=== PATIENT | male | born 1955 | race Caucasian/White ===

== ENCOUNTER → 2016-07-20 | Outpatient (CLI) | payer OTHER ==
[~2016-07-20] MED LIST: ACET-93 PO; ASP81TEC PO; AZIT-21 PO; CATHETER FLUSH 10 ML SYR IV PRN; CYCL10TA9 PO; DIAZ10TA PO; GFN600TCR PO; IBUP-2055 PO; IOHEXOL 350 MG/ML 150 ML (OMNIPAQUE 350) VIAL IV ONE; LEVO500T69 PO; LOVA20TA2 PO; MECL25TA56 PO; NAPR-243 PO; NS 100 ML (IVPB) BAG IV ONE; SULF1TAB38 PO; TRM50T PO
--- OUTSIDE RECORDS SUMMARY | 2016-07-20 08:57 | XMS REPORT | Continuity of Care Document ---
Author Author [facility] Organization [facility] Address Unknown Phone Unavailable Care Team Providers Care Clinical Director Name Role Phone NO, LOCAL PHYSICIAN PCP Unavailable Insurance Providers Payer Name Policy Number Subscriber Name Relationship Self Pay Clarence Espinoza 18 Self / Same As Patient Advance Directives Directive Response Recorded Date/Time Advance Directives No 06/12/14 4:57pm Health Care Power of Auto Dismantler No 06/12/14 4:57pm Organ Donor Yes 06/12/14 4:57pm Resuscitation Status Full Code 06/12/14 4:57pm Problems Medical Problems Problem Onset Date Status Bronchitis Unknown Active Community acquired pneumonia Unknown Active Wheezing Unknown Active Hyponatremia Unknown Active Medications Medication Dose Route Sig Days/Qty Instructions Order Date Discontinued Date Status Diazepam 1 Each PO THREE TIMES A DAY 30 Qty 04/25/10 08/21/11 Discontinued Cyclobenzaprine HCl (Flexeril) 1 Each PO Q8HR PRN 15 Qty FOR MUSCLE SPASMS 08/21/11 06/13/12 Discontinued Naproxen 1 Each PO TID PRN 20 Qty 08/21/11 06/13/12 Discontinued Tramadol HCl 50 Mg PO Q4-6HOURS PRN 20 Qty FOR PAIN 08/21/11 06/13/12 Discontinued Guaifenesin 600 Mg PO TWICE A DAY 06/15/12 06/22/13 Discontinued Meclizine HCl 25 Mg PO EVERY 8HRS PRN 06/15/12 06/22/13 Discontinued Aspirin 81 Mg PO DAILY 06/15/12 06/22/13 Discontinued Lovastatin (Mevacor) 20 Mg PO DAILY 06/15/12 06/22/13 Discontinued Trimethoprim/Sulfamethoxazole 1 Ea PO TWICE A DAY 40 Qty 06/15/12 Discontinued Azithromycin (Zpak) 1 Tab PO DAILY 4 Qty 06/22/13 06/12/14 Discontinued Levofloxacin 1.5 Each PO DAILY 9 Qty effective 06/12/14 Active Social History Social History Problem Response Recorded Date/Time Alcohol Use Denies Use 06/12/2014 4:57pm Recreational Drug Use No 06/12/2014 4:57pm Recent Foreign Travel No 06/22/2013 3:44am Recent Infectious Disease Exposure No 06/22/2013 3:44am Hospitalization with Isolation Denies 06/22/2013 3:44am Sexually Transmitted Disease No 06/12/2014 4:57pm Smoking Status Current Everyday Smoker 06/12/2014 4:57pm Query Response Start Date Stop Date Smoking Status Current Everyday Smoker Hospital Discharge Instructions No hospital discharge instructions. Plan of Care No plan of care. Functional Status No functional status results. Allergies, Adverse Reactions, Alerts Allergen Type Severity Reaction Status Last Updated No Known Drug Allergies Active 03/03/09 Immunizations Name Given Type Date of Influenza Vaccine 06/14/12 Historical Hepatitis A No Historical Hepatitis B No Historical Tetanus Booster (TDap) More than 5yrs Historical Vital Signs Acute Vital Signs Vital Response Date/Time Temperature (Fahrenheit) 99.0 degrees F (97.6 - 99.5) Temperature (Calculated Celsius) 37.54722 degrees C (36.4 - 37.5) Temperature Source Temporal Pulse Rate (adult) 83 bpm (60 - 90) Respiratory Rate 22 bpm (12 - 24) O2 Sat by Pulse Oximetry 94 % (88 - 100) Blood Pressure 130/73 mm Hg Pain Pain Intensity 9 Height (Feet) 6 feet Height (Inches) 1 inches Height (Calculated Centimeters) 185.918380 cm Weight (Pounds) 166 pounds Weight (Calculated Grams) 45752.704 gm Weight (Calculated Kilograms) 75.348145 kilograms Calculated BMI 21.90 Results Laboratory Results Test Name Result Units Flags Reference Collection Date/Time Result Date/ Time Comments White Blood Count 15.9 10^3/uL H 4.3-11.0 06/12/2014 5:05pm 06/12/2014 5: 33pm Red Blood Count 4.70 10^6/uL 4.35-5.85 06/12/2014 5:05pm 06/12/2014 5: 33pm Hemoglobin 14.2 G/DL 13.3-17.7 06/12/2014 5:05pm 06/12/2014 5:33pm Hematocrit 41 % 40-54 06/12/2014 5:05pm 06/12/2014 5:33pm Mean Corpuscular Volume 88 FL 80-99 06/12/2014 5:05pm 06/12/2014 5: 33pm Mean Corpuscular Hemoglobin 30 PG 25-34 06/12/2014 5:05pm 06/12/2014 5: 33pm Mean Corpuscular Hemoglobin Concent 35 G/DL 32-36 06/12/2014 5:05pm 12/2014 5:33pm Red Cell Distribution Width 12.6 % 10.0-14.5 06/12/2014 5:05pm 2014 5:33pm Platelet Count 266 10^3/uL 130-400 06/12/2014 5:05pm 06/12/2014 5:33pm Mean Platelet Volume 9.3 FL 7.4-10.4 06/12/2014 5:05pm 06/12/2014 5: 33pm Neutrophils (%) (Auto) 80 % H 42-75 06/12/2014 5:05pm 06/12/2014 5:33pm Lymphocytes (%) (Auto) 11 % L 12-44 06/12/2014 5:05pm 06/12/2014 5:33pm Monocytes (%) (Auto) 9 % 0-12 06/12/2014 5:05pm 06/12/2014 5:33pm Eosinophils (%) (Auto) 0 % 0-10 06/12/2014 5:05pm 06/12/2014 5:33pm Basophils (%) (Auto) 0 % 0-10 06/12/2014 5:05pm 06/12/2014 5:33pm Neutrophils # (Auto) 12.6 X 10^3 H 1.8-7.8 06/12/2014 5:05pm 06/12/2014 5 :33pm Lymphocytes # (Auto) 1.8 X 10^3 1.0-4.0 06/12/2014 5:05pm 06/12/2014 5: 33pm Monocytes # (Auto) 1.4 X 10^3 H 0.0-1.0 06/12/2014 5:05pm 06/12/2014 5: 33pm Eosinophils # (Auto) 0.0 10^3/uL 0.0-0.3 06/12/2014 5:05pm 06/12/2014 5 :33pm Basophils # (Auto) 0.1 10^3/uL 0.0-0.1 06/12/2014 5:05pm 06/12/2014 5: 33pm Neutrophils % (Manual) 81 % 06/12/2014 5:05pm 06/12/2014 5:51pm Band Neutrophils 2 % 06/12/2014 5:05pm 06/12/2014 5:51pm Lymphocytes % (Manual) 11 % 06/12/2014 5:05pm 06/12/2014 5:51pm Monocytes % (Manual) 4 % 06/12/2014 5:05pm 06/12/2014 5:51pm Eosinophils % (Manual) 0 % 06/12/2014 5:05pm 06/12/2014 5:51pm Basophils % (Manual) 0 % 06/12/2014 5:05pm 06/12/2014 5:51pm Reactive Lymphocytes 2 % 06/12/2014 5:05pm 06/12/2014 5:51pm Toxic Granulation 1+ 06/12/2014 5:05pm 06/12/2014 5:51pm Sodium Level 129 MMOL/L L 135-145 06/12/2014 5:05pm 06/12/2014 5:45pm Potassium Level 4.1 MMOL/L 3.6-5.0 06/12/2014 5:05pm 06/12/2014 5:45pm Chloride Level 95 MMOL/L L 98-107 06/12/2014 5:05pm 06/12/2014 5:45pm Carbon Dioxide Level 25 MMOL/L 21-32 06/12/2014 5:05pm 06/12/2014 5: 45pm Blood Urea Nitrogen 22 MG/DL H 7-18 06/12/2014 5:05pm 06/12/2014 5:45pm Creatinine 1.00 MG/DL 0.60-1.30 06/12/2014 5:05pm 06/12/2014 5:45pm BUN/Creatinine Ratio 22 06/12/2014 5:05pm 06/12/2014 5:45pm Estimat Glomerular Filtration Rate > 60 06/12/2014 5:05pm 2014 5:45pm GFR INTERPRETIVE DATA UNITS FOR ESTIMATED GFR (eGFR): mL/min/1.73 M2 REFERENCE RANGE FOR ESTIMATED GFR (eGFR) eGFR NORMAL eGFR >60 MODERATELY DECREASED eGFR 30-59 SEVERLY DECREASED eGFR 15-29 KIDNEY FAILURE <15 (OR DIALYSIS) Glucose Level 130 MG/DL H 70-105 06/12/2014 5:05pm 06/12/2014 5:45pm Calcium Level 8.8 MG/DL 8.5-10.1 06/12/2014 5:05pm 06/12/2014 5:45pm Total Bilirubin 0.5 MG/DL 0.1-1.0 06/12/2014 5:05pm 06/12/2014 5:45pm Alkaline Phosphatase 67 U/L 40-136 06/12/2014 5:05pm 06/12/2014 5:45pm Aspartate Amino Transf (AST/SGOT) 18 U/L 5-34 06/12/2014 5:05pm 2014 5:45pm Alanine Aminotransferase (ALT/SGPT) 14 U/L 0-55 06/12/2014 5:05pm 06/12 5:45pm Troponin I < 0.30 NG/ML <0.30 06/12/2014 5:05pm 06/12/2014 5:45pm Total Protein 7.5 G/DL 6.4-8.2 06/12/2014 5:05pm 06/12/2014 5:45pm Albumin 3.7 G/DL 3.2-4.5 06/12/2014 5:05pm 06/12/2014 5:45pm Procedures Procedure Status Date Provider(s) Tracing only of electrocardiogram completed 06/12/14 SAMIA ADAMS MD Encounters Encounter Location Date/Time Departed Emergency Room Via [facility] 06/12/14 4:45pm Recent Diagnosis
[2016-07-20 09:19] LABS: MEAN PLATELET VOLUME 8.5 FL (7.4-10.4); RED BLOOD COUNT 5.62 10^6/uL (4.35-5.85); RED CELL DISTRIBUTION WIDTH 13.2 % (10.0-14.5); WHITE BLOOD COUNT 8.1 10^3/uL (4.3-11.0)
[2016-07-20 09:49] LABS: BLOOD UREA NITROGEN 11 MG/DL (7-18); BUN/CREATININE RATIO 13; CREATININE SERUM 0.87 MG/DL (0.60-1.30); GFR ESTIMATED > 60
[2016-07-20 09:50] LABS: ALANINE AMINOTRANSFERASE 13 U/L (0-55); ALBUMIN 4.4 G/DL (3.2-4.5); ANION GAP 10 MMOL/L (5-14); ASPARTATE AMINO TRANSFERASE 21 U/L (5-34); BILIRUBIN,TOTAL 0.3 MG/DL (0.1-1.0); CARBON DIOXIDE 25 MMOL/L (21-32); CHLORIDE 103 MMOL/L (98-107); GLUCOSE 92 MG/DL (70-105); POTASSIUM 4.3 MMOL/L (3.6-5.0); SODIUM 138 MMOL/L (135-145); TOTAL PROTEIN 7.6 G/DL (6.4-8.2)
--- NOTE | 2016-07-20 10:46 | Diagnostic Imaging Report ---
PROCEDURE: CT chest with contrast only. TECHNIQUE: Multiple contiguous axial images were obtained through the chest after administration of intravenous contrast. INDICATION: Evaluate pulmonary nodule. COMPARISON: 04/24/2016. FINDINGS: There is a lateral right middle lobe pulmonary nodule measuring 1.4 cm in size. This appears minimally larger compared to 04/24/2016. The borders are irregular and the finding is concerning for malignancy. No other pulmonary nodules are seen in the right lung. The left lung demonstrates no significant abnormality. There are predominantly upper lobe mild emphysematous changes seen. The heart size is normal. No mediastinal mass or significantly enlarged lymph node is seen. No pericardial or pleural effusion. No hilar, mediastinal, or axillary lymphadenopathy is seen. The osseous structures appear grossly unremarkable. IMPRESSION: There is an irregular pulmonary nodule in the lateral segment of the right middle lobe measuring 1.4 cm with question of minimal enlargement compared to the 04/24/2016 exam. Consider evaluation with PET/CT and/or surgical resection. I discussed the findings with Jayla, the nurse working with Dr. Saira Covington, at the time of dictation. Dictated by: Dictated on workstation # [id number]
--- NOTE | 2016-07-20 13:37 | Diagnostic Imaging Report ---
PROCEDURE: CT angiography of the abdomen with and without contrast. TECHNIQUE: Multiple contiguous axial images were obtained through the abdomen and pelvis after administration of intravenous contrast. MIP reconstructions were made. INDICATION: Abdominal aortic aneurysm, study compared 04/24/2016. FINDINGS: Patent aortic stent graft device is in an unchanged position. Infrarenal abdominal aortic aneurysmal sac measuring 5.1 x 4.4 cm at the level of the renal lower poles is not significantly changed. Mural thrombus within the sac peripheral to the patent device shows heterogeneity of its density. This was unchanged when correlating pre-dynamic and delayed images. There were no findings of an endoleak. No aneurysmal rupture. Unruptured dilatation of the distal left common iliac just beyond the bifurcated graft is 2.3 cm, unchanged. There were no findings of solid or hollow visceral endorgan involvement by ischemia. Liver, gallbladder, bile ducts, spleen, adrenals and pancreas unremarkable. The unobstructed kidneys appeared normal. IMPRESSION: Patent stent graft devices in unchanged alignment showing no endoleak or aneurysmal rupture with stable aneurysmal sac caliber and density. 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 No acute appearing abnormality. Dictated by: Dictated on workstation # [id number]
== END ==
LOC: RAD 08:53
PROVIDERS: ATTEND Family Medicine
DX: I10 Essential (primary) hypertension (principal); I71.4 Abdominal aortic aneurysm, without rupture; R91.1 Solitary pulmonary nodule
CPT/HCPCS: 36415; 71260; 74175; 80053; 85027

== ENCOUNTER 2017-01-03 06:24 | Inpatient (IN) | payer OTHER ==
[~2017-01-03] VITALS: Ht 185.4 cm; Wt 75.1 kg
[~2017-01-03 06:24] MED LIST changes: -CATHETER FLUSH 10 ML SYR IV PRN; -IOHEXOL 350 MG/ML 150 ML (OMNIPAQUE 350) VIAL IV ONE; -NS 100 ML (IVPB) BAG IV ONE
--- NOTE | 2017-01-03 06:43 | ED Abdominal Pain ---
General Stated Complaint: AB PAIN BLOOD IN BOWEL Source of Information: Patient Exam Limitations: No Limitations History of Present Illness Time Seen By Provider: 06:30 Initial Comments Here with report of blood in his stool is markedly worse this morning. Complains of left lower quadrant abdominal pain. Noted that he had some blood in his stool through 4 days ago and some left lower quadrant abdominal pain but this morning he had what he thought was diarrhea and noted that it is actually just all blood. He said he had a full 5 seconds of draining bloody stool like diarrhea. Has history of AAA repair last April. Complains of dizziness. Timing/Duration: 3-4 Days, Getting Worse Severity/Quality: Moderate, Cramping, Sharp Location: LLQ Radiation: No Radiation Activities at Onset: None Modifying Factors: Improves With Defecating Associated Symptoms: No Back Pain, No Chest Pain, No Fever/Chills, Nausea/ Vomiting, No Shortness of Air, Weakness Allergies and Home Medications Allergies Coded Allergies: No Known Drug Allergies (Unverified , 03/03/09) Home Medications Acetaminophen 500 Mg Tablet, 1,000 MG PO DAILY, (Reported) Review of Systems Constitutional: see HPI, No chills, No fever EENTM: No Symptoms Reported Respiratory: No Symptoms Reported Cardiovascular: No Symptoms Reported Gastrointestinal: See HPI, Abdominal Pain, Blood Streaked Stools, Diarrhea, Denies Nausea, Rectal Bleeding, Denies Vomiting Genitourinary: No Symptoms Reported Musculoskeletal: no symptoms reported Skin: no symptoms reported Psychiatric/Neurological: No Symptoms Reported Endocrine: No Symptoms Reported All Other Systems Reviewed Negative Unless Noted: Yes Past Gtuhube-Bpsyik-Wyfhik Hx Patient Social History Alcohol Use: Denies Use Recreational Drug Use: No Smoking Status: Current Everyday Smoker Type Used: Cigarettes Recent Foreign Travel: No Contact w/Someone Who Travel: No Recent Hopitalizations: Yes (AAA REPAIR.04/2016) Immunizations Up To Date Tetanus Booster (TDap): More than 5yrs PED Vaccines UTD: No Date of Pneumonia Vaccine: Apr 06, 2014 Date of Influenza Vaccine: Jun 14, 2012 Seasonal Allergies Seasonal Allergies: No Surgeries HX Surgeries: Yes (hernia repair w/ mesh x 2, right wrist repair. AAA REPAIR. ) Surgeries: Abdominal, Orthopedic, Tonsillectomy, Vascular Surgery Respiratory Hx Respiratory Disorders: Yes (tobaccoism) Cardiovascular Hx Cardiac Disorders: Yes Cardiac Disorders: Aneurysm Neurological Hx Neurological Disorders: No Reproductive System Hx Reproductive Disorders: No Sexually Transmitted Disease: No Genitourinary Hx Genitourinary Disorders: No Gastrointestinal Hx Gastrointestinal Disorders: No Musculoskeletal Hx Musculoskeletal Disorders: No Endocrine Hx Endocrine Disorders: No HEENT HX ENT Disorders: No Hearing Impairment: Denies Cancer Hx Cancer: No Psychosocial Hx Psychiatric Problems: No Integumentary HX Skin/Integumentary Disorder: No Blood Transfusions Hx Blood Disorders: No Adverse Reaction to a Blood Tr: No Reviewed Nursing Assessment Reviewed/Agree w Nursing PMH: Yes Family Medical History Significant Family History: No Pertinent Family Hx Family Medial History: Patient reports no known family medical history. Physical Exam Vital Signs VS - Last 72 Hours, by Label 01/03/17 06:30 Temp 97.8 Pulse 80 Resp 18 B/P (MAP) 161/101 Pulse Ox 99 O2 Delivery Room Air Capillary Refill : General Appearance: WD/WN, no apparent distress HEENT: PERRL/EOMI, pharynx normal Neck: full range of motion, supple Respiratory: lungs clear, normal breath sounds Cardiovascular: regular rate, rhythm, no murmur Peripheral Pulses: 2+ Dorsalis Pedis (R), 2+ Left Dors-Pedis (L), 2+ Radial Pulses (R), 2+ Radial Pulses (L) Gastrointestinal: soft, No guarding, No rebound, tenderness Extremities: non-tender, normal inspection Back: normal inspection, no CVA tenderness, no vertebral tenderness Neurologic/Psychiatric: alert, normal mood/affect Skin: normal color, warm/dry Progress/Results/Core Measures Results/Orders Lab Results Laboratory Tests Test 01/03/17 06:39 Range/Units White Blood Count 9.2 4.3-11.0 10^3/uL Red Blood Count 5.50 4.35-5.85 10^6/uL Hemoglobin 16.0 13.3-17.7 G/DL Hematocrit 48 40-54 % Mean Corpuscular Volume 88 80-99 FL Mean Corpuscular Hemoglobin 29 25-34 PG Mean Corpuscular Hemoglobin Concent 33 32-36 G/DL Red Cell Distribution Width 13.6 10.0-14.5 % Platelet Count 261 130-400 10^3/uL Mean Platelet Volume 8.5 7.4-10.4 FL Neutrophils (%) (Auto) 72 42-75 % Lymphocytes (%) (Auto) 23 12-44 % Monocytes (%) (Auto) 4 0-12 % Eosinophils (%) (Auto) 1 0-10 % Basophils (%) (Auto) 0 0-10 % Neutrophils # (Auto) 6.6 1.8-7.8 X 10^3 Lymphocytes # (Auto) 2.1 1.0-4.0 X 10^3 Monocytes # (Auto) 0.3 0.0-1.0 X 10^3 Eosinophils # (Auto) 0.1 0.0-0.3 10^3/uL Basophils # (Auto) 0.0 0.0-0.1 10^3/uL Sodium Level 137 135-145 MMOL/L Potassium Level 4.3 3.6-5.0 MMOL/L Chloride Level 101 98-107 MMOL/L Carbon Dioxide Level 22 21-32 MMOL/L Anion Gap 14 5-14 MMOL/L Blood Urea Nitrogen 11 7-18 MG/DL Creatinine 0.92 0.60-1.30 MG/DL Estimat Glomerular Filtration Rate > 60 BUN/Creatinine Ratio 12 Glucose Level 160 H 70-105 MG/DL Calcium Level 9.2 8.5-10.1 MG/DL Magnesium Level 1.8 1.8-2.4 MG/DL Total Bilirubin 0.3 0.1-1.0 MG/DL Aspartate Amino Transf (AST/SGOT) 25 5-34 U/L Alanine Aminotransferase (ALT/SGPT) 20 0-55 U/L Alkaline Phosphatase 76 40-136 U/L Total Protein 7.8 6.4-8.2 GM/DL Albumin 4.2 3.2-4.5 GM/DL My Orders Orders - FERNANDO ABBASI MD Cbc With Automated Diff (01/03/17 06:37) Comprehensive Metabolic Panel (01/03/17 06:37) Magnesium (01/03/17 06:37) Red Cells Leukocytes Reduced (01/03/17 06:37) Saline Lock/Iv-Start (01/03/17 06:37) Monitor-Rhythm Ecg Trace Only (01/03/17 06:37) Fecal Occult Bedside (01/03/17 06:37) Type And Screen (01/03/17 06:37) Ns Iv 1000 Ml (Sodium Chloride 0.9%) (01/03/17 06:55) Ct Abdomen/Pelvis W (01/03/17 07:12) Iohexol Injection (Omnipaque 350 Mg/Ml 1 (01/03/17 07:30) Ct Chest Wo (01/03/17 08:05) Medications Given in ED Current Medications Medications Dose Ordered Sig/Debora Route Start Time Stop Time Status Last Admin Dose Admin Iohexol 100 ml ONCE ONCE IV 01/03/17 07:30 01/03/17 07:36 DC 01/03/17 07:42 100 ML Sodium Chloride 1,000 ml @ 0 mls/hr Q0M ONCE IV 01/03/17 06:55 01/03/17 06:56 DC 01/03/17 07:42 0 MLS/HR Vital Signs/I&O Vital Sign - Last 12Hours 01/03/17 06:30 Temp 97.8 Pulse 80 Resp 18 B/P (MAP) 161/101 Pulse Ox 99 O2 Delivery Room Air Progress Note : Progress Note Seen and evaluated. IV, labs, type and cross for 2 units, Hemoccult stool ordered. Anticipate CT scan. 0652: Hemoccult was positive. UA ordered. CT abdomen pelvis ordered. Findings as listed below. Concerns about findings in the chest and a dedicated CT scan of the chest ordered. This was discussed with the patient who agrees. 0917: CT results noted. Hemoglobin is stable but patient has report of significant blood per rectum and was Hemoccult positive. I do believe the patient requires monitoring with repeat H&H given the volume of blood reported. He also has left lower quadrant abdominal pain and this needs further evaluation. He was discussed with the patient and family who agree. 0915: Paged Dr. Cruz. 0922: Discussed case with Dr. Cruz. She accepts patient for admission, inpatient status. Consult Dr. Saenz. This was done at 0927. Clear liquid diet and H&H every 4 hours. Patient and family agree upon Diagnostic Imaging Diagonstic Imaging: CT Plain Films/CT/US/NM/MRI: abdomen, pelvis Comments VIA [facility]. [place], [place] NAME: CLARENCE KENNEDY [facility] REC#: [id number] PT STATUS: REG ER : 1955 PHYSICIAN: FERNANDO ABBASI MD ADMIT DATE: 01/03/17/ER Draft Date of Exam:01/03/17 CT ABDOMEN/PELVIS W PROCEDURE: CT abdomen and pelvis with contrast. TECHNIQUE: Multiple contiguous axial images were obtained through the abdomen and pelvis after administration of intravenous contrast. INDICATION: Abdominal pain. Blood in stool. Right lung cancer. History of aortic stent. COMPARISON: Abdomen CT without and with IV contrast 07/20/2016. CT chest with IV contrast 07/20/2016. FINDINGS: There are partially visualized postoperative changes in the medial right lung base including a partially visualized peripherally enhancing fluid collection. This is not seen on the prior chest CT. Stable aortobiiliac stent graft which is patent. The aneurysmal dilatation of the left common iliac artery is stable measuring up to 2.5 cm. Stable cyst in the right hepatic lobe. The gallbladder, pancreas, spleen, adrenals, kidneys and collecting systems are negative. No free intraperitoneal air or fluid. No evidence of bowel obstruction. Negative appendix. No lymphadenopathy. Prostate calcifications. Moderate spondylotic changes in the visualized thoracolumbar spine. No acute osseous findings. IMPRESSION: 1. No acute CT findings in the abdomen or pelvis. 2. Partially visualized peripherally enhancing fluid collection adjacent postoperative changes in the medial right lung base. This could be better evaluated with dedicated chest CT. Dictated on workstation # [id number] Dict: 01/03/17 0746 Trans: 01/03/17 0758 [facility] [id number] Interpreted by: CARRILLO CLARKE MD Electronically signed by: Reviewed: Reviewed by Tn Diagonstic Imaging: CT Plain Films/CT/US/NM/MRI: chest Comments VIA [place], [place] NAME: JUMA KENNEDYJUANI Lorenzo [facility] REC#: [id number] PT STATUS: REG ER : 1955 PHYSICIAN: FERNANDO ABBASI MD ADMIT DATE: 01/03/17/ER Draft Date of Exam:01/03/17 CT CHEST WO PROCEDURE: CT chest without contrast. TECHNIQUE: Multiple contiguous axial images were obtained through the chest without the use of intravenous contrast. INDICATION: Cough. Abnormal findings in lung bases on CT abdomen from earlier same day. FINDINGS: There is rounded density within the medial infrahilar margins of the right lower lung. Area in question measures approximately 3.8 x 2.9 cm. There is some associated comet tail density extending anteriorly. Additionally, serpiginous hyperdense material is also noted associated with the area in question and is consistent with surgical suture material. Note is made of irregular spiculated appearing nodule within the lateral segment of the right middle lobe on prior exam. Patient does appear to be status post interval right middle lobectomy. This is also supported by osteotomy defect of the posterior right sixth rib. Evaluation of the remainder of the lung barillas demonstrates mild diffuse air trapping consistent with background of COPD. There is a 5 mm subpleural micronodule within the anterior margins of the right upper lobe. This does appear to be new when compared to 07/20/2016. There is otherwise no area of focal consolidation, pleural effusion, nor pneumothorax on either side. Cardiomediastinal structures show no pathologically enlarged or morphologically abnormal adenopathy within the mediastinum. Largest lymph node is precarinal in location and measures 9 mm in shortest axis dimension. This is stable compared to prior exam. Eloisa suboptimally evaluated for adenopathy given the lack of IV contrast, but no additional distinct hilar masses are seen. There is some slight nonspecific stranding of the subcutaneous fat within the axilla, but no abnormal axillary adenopathy is seen. Similar subcutaneous stranding is also noted involving the subcutaneous fat overlying the pectoralis muscles. Bony structures show no other acute appearing abnormalities. Included portions of the upper abdomen are unremarkable. IMPRESSION: 1. New low-density structure in the right infrahilar region. This is likely postsurgical in nature given the adjacent atelectasis and surgical suture material. Right middle lobectomy. Correlation with surgical history is recommended. Continued followup may also be of benefit. 2. New micronodular density within the right upper lobe. Again, continued followup is recommended. 3. Background of mild COPD. 4. Mild soft tissue edema as described above. Dictated on workstation # [id number] Dict: 01/03/17 0849 Trans: 01/03/17 0905 JITENDRA [id number] Interpreted by: ADRY QUINTANILLA Electronically signed by: Reviewed: Reviewed by Me Departure Communication Time/Spoke to Admitting Phy: 09:22 Time/Spoke to Consulting Physi: 09:27 Impression Impression: Primary Impression: Lower GI bleeding Additional Impression: Abdominal pain, left lower quadrant Disposition: ADMITTED INPATIENT Condition: Stable Decision to Admit Reason: Admit from ER (General) Decision to Admit/Date: Jan 03, 2017 Time/Decision to Admit Time: 09:22 Departure-Patient Inst. Referrals: KACI ASHBY MD (PCP/Family) Primary Care Physician FERNANDO ABBSAI MD Jan 03, 2017 06:43
[2017-01-03 06:50] LABS: BASOPHILS % (AUTO) 0 % (0-10); EOSINOPHILS # (AUTO) 0.1 10^3/uL (0.0-0.3); EOSINOPHILS % (AUTO) 1 % (0-10); LYMPHOCYTES # (AUTO) 2.1 X 10^3 (1.0-4.0); LYMPHOCYTES % (AUTO) 23 % (12-44); MEAN CORPUSCULAR HEMOGLOBIN 29 PG (25-34); MEAN CORPUSCULAR HGB CONC 33 G/DL (32-36); MEAN CORPUSCULAR VOLUME 88 FL (80-99); MEAN PLATELET VOLUME 8.5 FL (7.4-10.4); MONOCYTES # (AUTO) 0.3 X 10^3 (0.0-1.0); MONOCYTES % (AUTO) 4 % (0-12); NEUTROPHILS # (AUTO) 6.6 X 10^3 (1.8-7.8); NEUTROPHILS % (AUTO) 72 % (42-75); PLATELET COUNT 261 10^3/uL (130-400); RED CELL DISTRIBUTION WIDTH 13.6 % (10.0-14.5); WHITE BLOOD COUNT 9.2 10^3/uL (4.3-11.0)
[2017-01-03] MEDS ORDERED: NS IV 1000 ML 1,000 ML IV ONE (06:55)
[2017-01-03 07:12] LABS: ALANINE AMINOTRANSFERASE 20 U/L (0-55); ALBUMIN 4.2 GM/DL (3.2-4.5); ANION GAP 14 MMOL/L (5-14); ASPARTATE AMINO TRANSFERASE 25 U/L (5-34); BILIRUBIN,TOTAL 0.3 MG/DL (0.1-1.0); BLOOD UREA NITROGEN 11 MG/DL (7-18); BUN/CREATININE RATIO 12; CALCIUM 9.2 MG/DL (8.5-10.1); CARBON DIOXIDE 22 MMOL/L (21-32); CHLORIDE 101 MMOL/L (98-107); CREATININE SERUM 0.92 MG/DL (0.60-1.30); GFR ESTIMATED > 60; GLUCOSE 160 MG/DL (70-105); MAGNESIUM 1.8 MG/DL (1.8-2.4); POTASSIUM 4.3 MMOL/L (3.6-5.0); SODIUM 137 MMOL/L (135-145); TOTAL PROTEIN 7.8 GM/DL (6.4-8.2)
[2017-01-03] MEDS ORDERED: IOHEXOL 350 MG/ML 100 ML (OMNIPAQUE 350) VIAL IV ONE (07:30)
--- NOTE | 2017-01-03 07:59 | Diagnostic Imaging Report ---
PROCEDURE: CT abdomen and pelvis with contrast. TECHNIQUE: Multiple contiguous axial images were obtained through the abdomen and pelvis after administration of intravenous contrast. INDICATION: Abdominal pain. Blood in stool. Right lung cancer. History of aortic stent. COMPARISON: Abdomen CT without and with IV contrast 07/20/2016. CT chest with IV contrast 07/20/2016. FINDINGS: There are partially visualized postoperative changes in the medial right lung base including a partially visualized peripherally enhancing fluid collection. This is not seen on the prior chest CT. Stable aortobiiliac stent graft which is patent. The aneurysmal dilatation of the left common iliac artery is stable measuring up to 2.5 cm. Stable cyst in the right hepatic lobe. The gallbladder, pancreas, spleen, adrenals, kidneys and collecting systems are negative. No free intraperitoneal air or fluid. No evidence of bowel obstruction. Negative appendix. No lymphadenopathy. Prostate calcifications. Moderate spondylotic changes in the visualized thoracolumbar spine. No acute osseous findings. IMPRESSION: 1. No acute CT findings in the abdomen or pelvis. 2. Partially visualized peripherally enhancing fluid collection adjacent postoperative changes in the medial right lung base. This could be better evaluated with dedicated chest CT. Dictated by: Dictated on workstation # [id number]
--- NOTE | 2017-01-03 09:06 | Diagnostic Imaging Report ---
PROCEDURE: CT chest without contrast. TECHNIQUE: Multiple contiguous axial images were obtained through the chest without the use of intravenous contrast. INDICATION: Cough. Abnormal findings in lung bases on CT abdomen from earlier same day. FINDINGS: There is rounded density within the medial infrahilar margins of the right lower lung. Area in question measures approximately 3.8 x 2.9 cm. There is some associated comet tail density extending anteriorly. Additionally, serpiginous hyperdense material is also noted associated with the area in question and is consistent with surgical suture material. Note is made of irregular spiculated appearing nodule within the lateral segment of the right middle lobe on prior exam. Patient does appear to be status post interval right middle lobectomy. This is also supported by osteotomy defect of the posterior right sixth rib. Evaluation of the remainder of the lung barillas demonstrates mild diffuse air trapping consistent with background of COPD. There is a 5 mm subpleural micronodule within the anterior margins of the right upper lobe. This does appear to be new when compared to 07/20/2016. There is otherwise no area of focal consolidation, pleural effusion, nor pneumothorax on either side. Cardiomediastinal structures show no pathologically enlarged or morphologically abnormal adenopathy within the mediastinum. Largest lymph node is precarinal in location and measures 9 mm in shortest axis dimension. This is stable compared to prior exam. Eloisa suboptimally evaluated for adenopathy given the lack of IV contrast, but no additional distinct hilar masses are seen. There is some slight nonspecific stranding of the subcutaneous fat within the axilla, but no abnormal axillary adenopathy is seen. Similar subcutaneous stranding is also noted involving the subcutaneous fat overlying the pectoralis muscles. Bony structures show no other acute appearing abnormalities. Included portions of the upper abdomen are unremarkable. IMPRESSION: 1. New low-density structure in the right infrahilar region. This is likely postsurgical in nature given the adjacent atelectasis and surgical suture material. Right middle lobectomy. Correlation with surgical history is recommended. Continued followup may also be of benefit. 2. New micronodular density within the right upper lobe. Again, continued followup is recommended. 3. Background of mild COPD. 4. Mild soft tissue edema as described above. Dictated by: Dictated on workstation # [id number]
[2017-01-03 10:17] VITALS: BP 126/78
--- NOTE | 2017-01-03 10:30 | History & Physical-Surgical ---
History of Present Illness History of Present Illness Reason for visit/HPI Patient reports that about 4 days ago he noticed blood in his stool. He also reports that he started having diarrhea with Bright red blood. Patient states about 2 days ago he had significant left lower quadrant abdominal pain. Patient states that at that time he would have rated his pain 15 out of 10. He stated at the time of intense pain, he was eating. Patient states that the diarrhea continued until today. Patient states that this morning, he went to the bathroom because he was also having left lower quadrant pain, patient states he had diarrhea and it was just all blood in stool. Patient is alert and oriented 3. No signs of distress or discomfort is noted. Patient denies any abdominal pain at this time. Abdomen is soft to palpation. No signs of fever, chills or chest pain. Patient also reports that his last colonoscopy was in 2004. He also states he had an EGD done at that time. Patient states that his colonoscopy revealed nothing that time. Patient states about a year ago he had a AAA repair. He also reports that tumor from his right lung was removed 6 months ago. Date of Admission Jan 03, 2017 at 9:33 am Time Seen by Provider: 10:10 I consulted on this patient on 01/03/17 10:19 Attending Physician Jessenia Cruz MD Admitting Physician Saira Covington MD Consult Allergies and Home Medications Allergies Coded Allergies: No Known Drug Allergies (Unverified , 03/03/09) Home Medications Acetaminophen 500 Mg Tablet, 1,000 MG PO DAILY, (Reported) TAKES 2 (500 MG) TABLETS Losartan Potassium 25 Mg Tablet, 25 MG PO DAILY, (Reported) Past Ocixutb-Fmepbb-Ucmees Hx Patient Social History Alcohol Use: Denies Use Recreational Drug Use: No Smoking Status: Current Everyday Smoker Type Used: Cigarettes Recent Foreign Travel: No Contact w/Someone Who Travel: No Recent Infectious Disease Expo: No Recent Hopitalizations: Yes (AAA REPAIR.04/2016) Immunizations Up To Date Tetanus Booster (TDap): More than 5yrs PED Vaccines UTD: No Date of Pneumonia Vaccine: Apr 06, 2014 Date of Influenza Vaccine: Jun 14, 2012 Seasonal Allergies Seasonal Allergies: No Surgeries HX Surgeries: Yes (hernia repair w/ mesh x 2, right wrist repair. AAA REPAIR. ) Surgeries: Abdominal, Orthopedic, Tonsillectomy, Vascular Surgery Respiratory Hx Respiratory Disorders: Yes (tobaccoism) Cardiovascular Hx Cardiac Disorders: Yes Cardiac Disorders: Aneurysm Neurological Hx Neurological Disorders: No Reproductive System Hx Reproductive Disorders: No Sexually Transmitted Disease: No Genitourinary Hx Genitourinary Disorders: No Gastrointestinal Hx Gastrointestinal Disorders: No Musculoskeletal Hx Musculoskeletal Disorders: No Endocrine Hx Endocrine Disorders: No HEENT HX ENT Disorders: No Hearing Impairment: Denies Cancer Hx Cancer: No Psychosocial Hx Psychiatric Problems: No Integumentary HX Skin/Integumentary Disorder: No Blood Transfusions Hx Blood Disorders: No Adverse Reaction to a Blood Tr: No Reviewed Nursing Assessment Reviewed/Agree w Nursing PMH: Yes Family Medical History Significant Family History: No Pertinent Family Hx Family Medial History: Patient reports no known family medical history. Constitutional: see HPI EENTM: no symptoms reported Respiratory: no symptoms reported Cardiovascular: no symptoms reported Gastrointestinal: LLQ, diarrhea, other (blood in stool) Genitourinary: no symptoms reported Musculoskeletal: no symptoms reported Skin: no symptoms reported Physical Exam Vital Signs Vital Sign - Last 12Hours 01/03/17 06:30 Temp 97.8 Pulse 80 Resp 18 B/P (MAP) 161/101 Pulse Ox 99 O2 Delivery Room Air Capillary Refill : Less Than 3 Seconds General Appearance: No Apparent Distress, WD/WN HEENT: Pharynx Normal Neck: Full Range of Motion, Normal Inspection Respiratory: Chest Non Tender, No Accessory Muscle Use, No Respiratory Distress Gastrointestinal: No Organomegaly, No Pulsatile Mass, Non Tender, Soft Extremity: Non Tender, No Calf Tenderness, No Pedal Edema Neurologic/Psychiatric: Alert, Oriented x3, No Motor/Sensory Deficits, Normal Mood/Affect, logging assistant II-XII Norm as Tested Skin: Normal Color, Warm/Dry Data Review Labs Laboratory Tests 01/03/17 06:39: White Blood Count 9.2, Red Blood Count 5.50, Hemoglobin 16.0, Hematocrit 48, Mean Corpuscular Volume 88, Mean Corpuscular Hemoglobin 29, Mean Corpuscular Hemoglobin Concent 33, Red Cell Distribution Width 13.6, Platelet Count 261, Mean Platelet Volume 8.5, Neutrophils (%) (Auto) 72, Lymphocytes (%) (Auto) 23, Monocytes (%) (Auto) 4, Eosinophils (%) (Auto) 1, Basophils (%) (Auto) 0, Neutrophils # (Auto) 6.6, Lymphocytes # (Auto) 2.1, Monocytes # (Auto) 0.3, Eosinophils # (Auto) 0.1, Basophils # (Auto) 0.0, Sodium Level 137, Potassium Level 4.3, Chloride Level 101, Carbon Dioxide Level 22, Anion Gap 14, Blood Urea Nitrogen 11, Creatinine 0.92, Estimat Glomerular Filtration Rate > 60, BUN/ Creatinine Ratio 12, Glucose Level 160H, Calcium Level 9.2, Magnesium Level 1.8 , Total Bilirubin 0.3, Aspartate Amino Transf (AST/SGOT) 25, Alanine Aminotransferase (ALT/SGPT) 20, Alkaline Phosphatase 76, Total Protein 7.8, Albumin 4.2 01/03/17 11:00: Hemoglobin 15.5, Hematocrit 47 Assessment/Plan Assessment/Plan Assessment/Plan Bloody Stools LLQ pain Hx of AAA repair H&H is 16 and 48. We will continue to monitor patients lab and vital signs. Possible EGD and Colonoscopy while in hospital. CT impression showed No acute CT findings in the abdomen or pelvis. Clear liquids Marie-erythema. Patient is a 61-year-old male who's had 4 days of some bright red blood in the stools. There are small amounts of bowel movements and having diarrhea. Patient states that the swelling was more liquids stool but primarily bright red blood. Patient is also been expressing some left lower quadrant pain which she states is sharp in nature and only last a few minutes. Patient states that he is not having this any longer at this time. Patient has not had any blood previous that he knows of. He does have a history of a colonoscopy in 2004 which she reports as being normal. He has had a recent AAA repair approximately 1 year ago at [facility] and also had lung surgery approximately 6 months ago. Patient denies any nausea vomiting fever sweats chills shortness of breath or chest pain. Gen. patient's in no acute distress Head is normocephalic atraumatic eyes nonicteric nares are patent mouth is moist trachea is midline Heart regular Lungs unlabored breathing Abdomen soft nondistended nontender no palpable masses no organomegaly Extremities nontender Rectal deferred at this time. Extremities nontender Normal mood and affect Alert and oriented Skin without rash Patient with lower gastrointestinal bleed, history of lung cancer right side, history of AAA repair, left lower quadrant abdominal pain resolved at this time continue to monitor. Patient CT scan findings demonstrated no abnormal abdominal or pelvic findings. Patient has some postoperative changes and a micronodule the right long which will need continued follow-up. At this time we 'll continue with clear liquid diet, follow hemoglobin. May need endoscopy inpatient versus outpatient depending upon if he has continued symptoms and drop in hemoglobin. If not performed and patient will do as outpatient in short time interval. JOHNSON BURKS APRN Jan 03, 2017 10:30 PABLO MARIE DO Jan 03, 2017 16:33
[2017-01-03] MEDS ORDERED: ONDANSETRON 4 MG/2 ML (SDV) Z0FRAN IV PRN (10:45)
[2017-01-03] MEDS ORDERED: CATHETER FLUSH 10 ML SYR IV PRN (10:45)
[2017-01-03] MEDS ORDERED: fentaNYL INJECTION 100 MCG/2 ML AMP IV PRN (10:45)
[2017-01-03] MEDS: NS IV 1000 ML 1,000 ML IV SCH (10:51)
--- NOTE | 2017-01-03 11:39 | History & Physicial ([facility]) ---
KELLY HERNANDEZ MED STUDENT 01/03/17 11:39am: HPI History of Present Illness: Patient presented to the ER this morning (01/03/2017) with complaint of hematochezia. He had noticed the bleeding 4 days ago with blood with his bowel movements. He did not notice the blood for a day after onset of symptoms but he then started to feel a severe, stabbing pain in the LLQ and had some blood with his stool. The pain resided after 2-3 mins. This morning after he had breakfast , he had a bowel movement before he ate with small amount of blood. After he ate he felt the urge to go again and the movement was all blood and did not contain any stool. He drove himself to the ER. Patient denies nausea and vomiting though he does feel light headed. Source: patient Exam Limitations: no limitations Date seen by provider: Jan 03, 2017 Time Seen by Provider: 11:15 Attending Physician Edgar Phillips MD PCP Saira Covington MD Consult Date of Admission Jan 03, 2017 at 09:33 Home Medications Home Medications Reviewed patient Home Medication Reconciliation Form Allergies Coded Allergies: No Known Drug Allergies (Unverified , 03/03/09) GRI-[id number]-Yjsuev Hx Patient Social History Marrital Status: Alcohol Use: Denies Use Recreational Drug Use: No Smoking Status: Current Everyday Smoker Type Used: Cigarettes Recent Foreign Travel: No Contact w/other who traveled: No Recent Hopitalizations: Yes (AAA REPAIR.04/2016) Recent Infectious Disease Expo: No Physical Abuse Screen: No Sexual Abuse: No Immunizations Up To Date Tetanus Booster (TDap): More than 5yrs Date of Pneumonia Vaccine: Apr 06, 2014 Date of Influenza Vaccine: Jun 14, 2012 Past Medical History Patient had a centrally located lung cancer removed 3-4 months ago. Has hospitalized 1 week later for infection. AAA repair 2015. Family Medical History Significant Family History: No Pertinent Family Hx Family History: Osteoporosis Respiratory disorder Review of Systems ([facility]) Constitutional: see HPI Physical Exam-([facility]) Physical Exam Vital Signs VS - Last 72 Hours, by Label 01/03/17 01/03/17 01/03/17 01/03/17 06:30 09:57 10:17 10:23 Temp 97.8 97.8 98.6 Pulse 80 76 65 Resp 18 16 20 B/P (MAP) 161/101 126/78 Pulse Ox 99 99 96 96 O2 Delivery Room Air Room Air Room Air Room Air Capillary Refill : Less Than 3 Seconds General Appearance: no apparent distress Respiratory: lungs clear, normal breath sounds, no respiratory distress Cardiovascular: regular rate, rhythm, no murmur Gastrointestinal: normal bowel sounds, guarding, tenderness Assessment/Plan Assessment/Plan Admission Dx Hematochezia Plan Observe for the next 24 hours. Monitor hemoglobin and volume status. Diagnosis/Problems: (1) Lower GI bleeding Assessment & Plan: Internal Hematoids, Ischemic Colitis, Colon/Rectal Varices, Ulcerative colitis Observe for 24hrs and monitor Hb and volume status. Clinical Quality Measures DVT/VTE Risk/Contraindication: Risk Factor Score Per Nursin RFS Level Per Nursing on Admit: 3=High EDGAR PHILLIPS MD 01/03/17 1:17pm: Home Medications Allergies Coded Allergies: No Known Drug Allergies (Unverified , 03/03/09) [id number]-[id number] Hx Past Medical History PMHx: COPD AAA HTN Lung cancer SurgHx: AAA repair Lung resection, right for lung ca excision Hernia repair x 2 Family Medical History Family History: Osteoporosis Respiratory disorder Review of Systems ([facility]) Constitutional: No fever EENTM: no symptoms reported Respiratory: no symptoms reported Cardiovascular: no symptoms reported Gastrointestinal: see HPI Genitourinary: no symptoms reported Musculoskeletal: no symptoms reported Skin: no symptoms reported Psychiatric/Neurological: No Symptoms Reported Reviewed Test Results Reviewed Test Results Lab Laboratory Tests Test 01/03/17 06:39 01/03/17 11:00 Range/Units White Blood Count 9.2 4.3-11.0 10^3/uL Red Blood Count 5.50 4.35-5.85 10^6/uL Hemoglobin 16.0 15.5 13.3-17.7 G/DL Hematocrit 48 47 40-54 % Mean Corpuscular Volume 88 80-99 FL Mean Corpuscular Hemoglobin 29 25-34 PG Mean Corpuscular Hemoglobin Concent 33 32-36 G/DL Red Cell Distribution Width 13.6 10.0-14.5 % Platelet Count 261 130-400 10^3/uL Mean Platelet Volume 8.5 7.4-10.4 FL Neutrophils (%) (Auto) 72 42-75 % Lymphocytes (%) (Auto) 23 12-44 % Monocytes (%) (Auto) 4 0-12 % Eosinophils (%) (Auto) 1 0-10 % Basophils (%) (Auto) 0 0-10 % Neutrophils # (Auto) 6.6 1.8-7.8 X 10^3 Lymphocytes # (Auto) 2.1 1.0-4.0 X 10^3 Monocytes # (Auto) 0.3 0.0-1.0 X 10^3 Eosinophils # (Auto) 0.1 0.0-0.3 10^3/uL Basophils # (Auto) 0.0 0.0-0.1 10^3/uL Sodium Level 137 135-145 MMOL/L Potassium Level 4.3 3.6-5.0 MMOL/L Chloride Level 101 98-107 MMOL/L Carbon Dioxide Level 22 21-32 MMOL/L Anion Gap 14 5-14 MMOL/L Blood Urea Nitrogen 11 7-18 MG/DL Creatinine 0.92 0.60-1.30 MG/DL Estimat Glomerular Filtration Rate > 60 BUN/Creatinine Ratio 12 Glucose Level 160 H 70-105 MG/DL Calcium Level 9.2 8.5-10.1 MG/DL Magnesium Level 1.8 1.8-2.4 MG/DL Total Bilirubin 0.3 0.1-1.0 MG/DL Aspartate Amino Transf (AST/SGOT) 25 5-34 U/L Alanine Aminotransferase (ALT/SGPT) 20 0-55 U/L Alkaline Phosphatase 76 40-136 U/L Total Protein 7.8 6.4-8.2 GM/DL Albumin 4.2 3.2-4.5 GM/DL Radiology CT abdomen/pelvis 01/03: IMPRESSION: 1. No acute CT findings in the abdomen or pelvis. 2. Partially visualized peripherally enhancing fluid collection adjacent postoperative changes in the medial right lung base. This could be better evaluated with dedicated chest CT. CT chest 01/03: DRAFT: IMPRESSION: 1. New low-density structure in the right infrahilar region. This is likely postsurgical in nature given the adjacent atelectasis and surgical suture material. Right middle lobectomy. Correlation with surgical history is recommended. Continued followup may also be of benefit. 2. New micronodular density within the right upper lobe. Again, continued followup is recommended. 3. Background of mild COPD. 4. Mild soft tissue edema as described above. Physical Exam-([facility]) Physical Exam Vital Signs VS - Last 72 Hours, by Label 01/03/17 01/03/17 01/03/17 01/03/17 06:30 09:57 10:17 10:23 Temp 97.8 97.8 98.6 Pulse 80 76 65 Resp 18 16 20 B/P (MAP) 161/101 126/78 Pulse Ox 99 99 96 96 O2 Delivery Room Air Room Air Room Air Room Air Gastrointestinal: soft, tenderness (LLQ and epigastric) Neurologic/Psychiatric: alert, oriented x 3 Skin: normal color, warm/dry Assessment/Plan Assessment/Plan Admission Dx Hematochezia Lung ca s/p recent RML resection HTN Plan Hematochezia- CT without diverticulitis, but symptoms otherwise suggest possible diverticulitis, no clear findings on CT and normal labs -Monitor H&H, Surgery consult Lung ca- with findings on CT needing follow-up -Pt reports he has a repeat CT scheduled Oct with his Oncologist already for this HTN- resume home medication DVT ppx- SCDs Diagnosis/Problems: (1) Lower GI bleeding Assessment & Plan: Internal Hemaroids vs Ischemic Colitis vs Colon/Rectal Varices vs Ulcerative colitis Observe for 24hrs and monitor Hb and volume status. Supervisory-Addendum Brief Supervisory Addendum Patient seen with MS3 Kelly Hernandez and also interviewed and examined by me. See my additional notes. KELLY HERNANDEZ MED STUDENT Jan 03, 2017 11:39 am EDGAR PHILLIPS MD Jan 03, 2017 1:17 pm
[2017-01-03] MEDS ORDERED: LOSA25TA21 PO (11:53)
[2017-01-03 12:00] VITALS: BP 128/73
[2017-01-03] MEDS ORDERED: NICOTINE 21 MG (NICODERM) PATCH TD NR (12:00)
[2017-01-03 16:05] VITALS: BP 143/90
[2017-01-03 19:13] VITALS: BP 125/72
[2017-01-03 23:40] VITALS: BP 126/80
[2017-01-04] MEDS: NS IV 1000 ML 1,000 ML IV SCH (00:12)
[2017-01-04 03:30] VITALS: BP 130/77
[2017-01-04 06:21] LABS: BASOPHILS % (AUTO) 1 % (0-10); EOSINOPHILS # (AUTO) 0.2 10^3/uL (0.0-0.3); EOSINOPHILS % (AUTO) 3 % (0-10); LYMPHOCYTES # (AUTO) 2.5 X 10^3 (1.0-4.0); LYMPHOCYTES % (AUTO) 36 % (12-44); MEAN CORPUSCULAR HEMOGLOBIN 29 PG (25-34); MEAN CORPUSCULAR HGB CONC 33 G/DL (32-36); MEAN CORPUSCULAR VOLUME 88 FL (80-99); MEAN PLATELET VOLUME 8.6 FL (7.4-10.4); MONOCYTES # (AUTO) 0.5 X 10^3 (0.0-1.0); MONOCYTES % (AUTO) 7 % (0-12); NEUTROPHILS # (AUTO) 3.8 X 10^3 (1.8-7.8); NEUTROPHILS % (AUTO) 53 % (42-75); PLATELET COUNT 264 10^3/uL (130-400); RED BLOOD COUNT 5.52 10^6/uL (4.35-5.85); RED CELL DISTRIBUTION WIDTH 13.8 % (10.0-14.5)
[2017-01-04 06:42] LABS: ALANINE AMINOTRANSFERASE 16 U/L (0-55); ALBUMIN 3.8 GM/DL (3.2-4.5); ANION GAP 6 MMOL/L (5-14); ASPARTATE AMINO TRANSFERASE 20 U/L (5-34); BILIRUBIN,TOTAL 0.5 MG/DL (0.1-1.0); BLOOD UREA NITROGEN 10 MG/DL (7-18); BUN/CREATININE RATIO 12; CARBON DIOXIDE 27 MMOL/L (21-32); CHLORIDE 104 MMOL/L (98-107); CREATININE SERUM 0.84 MG/DL (0.60-1.30); GFR ESTIMATED > 60; GLUCOSE 94 MG/DL (70-105); POTASSIUM 4.6 MMOL/L (3.6-5.0); SODIUM 137 MMOL/L (135-145)
[2017-01-04 08:00] VITALS: BP 124/80
[2017-01-04] MEDS ORDERED: NICOTINE PATCH REMOVAL TP SCH (08:59)
[2017-01-04] MEDS ORDERED: NICOTINE 21 MG (NICODERM) PATCH TD SCH (09:00)
--- NOTE | 2017-01-04 10:04 | Discharge Instructions ---
Discharge [facility] Discharge Medications Continued Medications: Acetaminophen (Acetaminophen) 500 Mg Tablet 1000 MG PO DAILY, TAB TAKES 2 (500 MG) TABLETS Losartan Potassium (Losartan Potassium) 25 Mg Tablet 25 MG PO DAILY Patient Instructions Goal/Follow Up Appt: Follow up with Dr. Covington on 01/25 at 11 am. Follow up with Dr. Saenz as instructed. Return to The Hospital For: Rectal bleeding with dizziness, lightheadedness. Chest pain, vomiting, abdominal pain. Activity & Diet Discharge Diet: Regular Diet Activity as Tolerated: Yes Copy Copies To 1: KACI COVINGTON MD [facility],EDGAR Rucker MD Jan 04, 2017 10:04 am
--- NOTE | 2017-01-04 10:06 | Discharge Summary ---
Diagnosis/Chief Complaint Date of Admission Jan 03, 2017 at 9:33 am Date of Discharge Jan 04, 2017 Admission Diagnosis Admission Diagnosis Hematochezia Lung ca s/p recent RML resection HTN Discharge Diagnosis Hematochezia- CT without diverticulitis, but symptoms otherwise suggest possible diverticulitis, no clear findings on CT and normal labs -Monitor H&H, Surgery consult- no drop in hemoglobin and no further bleeding inpatient, plan for outpatient scope Lung ca- with findings on CT needing follow-up -Pt reports he has a repeat CT scheduled Oct with his Oncologist already for this HTN- resumed home medication Chief Complaint/HPI Chief Complaint/HPI Patient presented to the ER this morning (01/03/2017) with complaint of hematochezia. He had noticed the bleeding 4 days ago with blood with his bowel movements. He did not notice the blood for a day after onset of symptoms but he then started to feel a severe, stabbing pain in the LLQ and had some blood with his stool. The pain resided after 2-3 mins. This morning after he had breakfast , he had a bowel movement before he ate with small amount of blood. After he ate he felt the urge to go again and the movement was all blood and did not contain any stool. He drove himself to the ER. Patient denies nausea and vomiting though he does feel light headed. Discharge Summary-Simple/Stand Consultations Discharge Physical Examination Allergies: Coded Allergies: No Known Drug Allergies (Unverified , 03/03/09) Vitals & I&Os Vital Sign - Last 12Hours Date Time Temp Pulse Resp B/P (MAP) Pulse Ox O2 Delivery O2 Flow Rate FiO2 01/04/17 08:00 98.0 65 20 124/80 93 Room Air Intake and Output 01/04/17 00:00 Intake Total 1520 ml Output Total 1200 ml Balance 320 ml General Appearance: Alert, No Acute Distress Respiratory: Clear to Auscultation, Normal Air Movement Cardiovascular: Regular Rate, No Murmurs Abdominal: Normal Bowel Sounds, Soft, Other (mild suprapubic tenderness) Neuro: Normal Speech Psych/Mental Status: Mental Status NL Hospital Course See final discharge diagnosis. Labs Laboratory Tests Test 01/03/17 06:39 01/03/17 11:00 01/04/17 06:15 Range/Units White Blood Count 9.2 7.0 4.3-11.0 10^3/uL Red Blood Count 5.50 5.52 4.35-5.85 10^6/uL Hemoglobin 16.0 15.5 15.9 13.3-17.7 G/DL Hematocrit 48 47 49 40-54 % Mean Corpuscular Volume 88 88 80-99 FL Mean Corpuscular Hemoglobin 29 29 25-34 PG Mean Corpuscular Hemoglobin Concent 33 33 32-36 G/DL Red Cell Distribution Width 13.6 13.8 10.0-14.5 % Platelet Count 261 264 130-400 10^3/uL Mean Platelet Volume 8.5 8.6 7.4-10.4 FL Neutrophils (%) (Auto) 72 53 42-75 % Lymphocytes (%) (Auto) 23 36 12-44 % Monocytes (%) (Auto) 4 7 0-12 % Eosinophils (%) (Auto) 1 3 0-10 % Basophils (%) (Auto) 0 1 0-10 % Neutrophils # (Auto) 6.6 3.8 1.8-7.8 X 10^3 Lymphocytes # (Auto) 2.1 2.5 1.0-4.0 X 10^3 Monocytes # (Auto) 0.3 0.5 0.0-1.0 X 10^3 Eosinophils # (Auto) 0.1 0.2 0.0-0.3 10^3/uL Basophils # (Auto) 0.0 0.0 0.0-0.1 10^3/uL Sodium Level 137 137 135-145 MMOL/L Potassium Level 4.3 4.6 3.6-5.0 MMOL/L Chloride Level 101 104 98-107 MMOL/L Carbon Dioxide Level 22 27 21-32 MMOL/L Anion Gap 14 6 5-14 MMOL/L Blood Urea Nitrogen 11 10 7-18 MG/DL Creatinine 0.92 0.84 0.60-1.30 MG/DL Estimat Glomerular Filtration Rate > 60 > 60 BUN/Creatinine Ratio 12 12 Glucose Level 160 H 94 70-105 MG/DL Calcium Level 9.2 9.0 8.5-10.1 MG/DL Magnesium Level 1.8 1.8-2.4 MG/DL Total Bilirubin 0.3 0.5 0.1-1.0 MG/DL Aspartate Amino Transf (AST/SGOT) 25 20 5-34 U/L Alanine Aminotransferase (ALT/SGPT) 20 16 0-55 U/L Alkaline Phosphatase 76 66 40-136 U/L Total Protein 7.8 7.0 6.4-8.2 GM/DL Albumin 4.2 3.8 3.2-4.5 GM/DL Radiology Reviewed CT abdomen/pelvis 01/03: IMPRESSION: 1. No acute CT findings in the abdomen or pelvis. 2. Partially visualized peripherally enhancing fluid collection adjacent postoperative changes in the medial right lung base. This could be better evaluated with dedicated chest CT. CT chest 01/03: DRAFT: IMPRESSION: 1. New low-density structure in the right infrahilar region. This is likely postsurgical in nature given the adjacent atelectasis and surgical suture material. Right middle lobectomy. Correlation with surgical history is recommended. Continued followup may also be of benefit. 2. New micronodular density within the right upper lobe. Again, continued followup is recommended. 3. Background of mild COPD. 4. Mild soft tissue edema as described above. Discharge Instructions to patient/family Please see electonic discharge instructions given to patient. Discharge Medications Reviewed and agree with Discharge Medication list on patient's Discharge Instruction sheet Clinical Quality Measures DVT/VTE Risk/Contraindication: Risk Factor Score Per Nursin RFS Level Per Nursing on Admit: 3=High Contraindications-Pharm: Other *list below* Other: GI bleeding Copy Copies To 1: KACI ASHBY MD,EDGAR Rucker MD Jan 04, 2017 10:06 am
--- NOTE | 2017-01-04 11:42 | Progress Note ---
Subjective Date Seen by Provider: Jan 04, 2017 Time Seen by Provider: 11:39 Subjective/Events-last exam Patient not having any abdominal pain. Not having any further bloody bm. Tolerating diet. Denies any n/v fever sweats chills shortness of breath or chest pain. Patient with hgb stable. Objective Exam Vital Signs Date Time Temp Pulse Resp B/P (MAP) Pulse Ox O2 Delivery O2 Flow Rate FiO2 01/04/17 08:00 98.0 65 20 124/80 93 Room Air 01/04/17 03:30 98.2 70 18 130/77 94 Room Air 01/03/17 23:40 97.5 67 20 126/80 92 Room Air 01/03/17 19:13 98.6 68 24 125/72 93 Room Air 01/03/17 16:05 98.4 80 19 143/90 95 Room Air 01/03/17 12:00 98.4 78 20 128/73 95 Room Air I & O 01/04/17 07:00 Intake Total 4160 ml Output Total 2550 ml Balance 1610 ml Capillary Refill : Less Than 3 Seconds General Appearance: No Apparent Distress, WD/WN HEENT: Pharynx Normal Neck: Full Range of Motion, Normal Inspection Respiratory: Chest Non Tender, No Accessory Muscle Use, No Respiratory Distress Peripheral Pulses: 2+ Dorsalis Pedis (R), 2+ Left Dors-Pedis (L), 2+ Radial Pulses (R), 2+ Radial Pulses (L) Gastrointestinal: non tender, soft, no organomegaly Extremity: Non Tender, No Calf Tenderness, No Pedal Edema Neurologic/Psychiatric: Alert, Oriented x3, No Motor/Sensory Deficits, Normal Mood/Affect, magneto repairer II-XII Norm as Tested Skin: Normal Color, Warm/Dry Results Lab Laboratory Tests 01/04/17 06:15: White Blood Count 7.0, Red Blood Count 5.52, Hemoglobin 15.9, Hematocrit 49, Mean Corpuscular Volume 88, Mean Corpuscular Hemoglobin 29, Mean Corpuscular Hemoglobin Concent 33, Red Cell Distribution Width 13.8, Platelet Count 264, Mean Platelet Volume 8.6, Neutrophils (%) (Auto) 53, Lymphocytes (%) (Auto) 36, Monocytes (%) (Auto) 7, Eosinophils (%) (Auto) 3, Basophils (%) (Auto) 1, Neutrophils # (Auto) 3.8, Lymphocytes # (Auto) 2.5, Monocytes # (Auto) 0.5, Eosinophils # (Auto) 0.2, Basophils # (Auto) 0.0, Sodium Level 137, Potassium Level 4.6, Chloride Level 104, Carbon Dioxide Level 27, Anion Gap 6, Blood Urea Nitrogen 10, Creatinine 0.84, Estimat Glomerular Filtration Rate > 60, BUN/ Creatinine Ratio 12, Glucose Level 94, Calcium Level 9.0, Total Bilirubin 0.5, Aspartate Amino Transf (AST/SGOT) 20, Alanine Aminotransferase (ALT/SGPT) 16, Alkaline Phosphatase 66, Total Protein 7.0, Albumin 3.8 Assessment/Plan Assessment/Plan Assessment/Plan Lower gastrointestinal bleed. Bloody Stools- resolved. LLQ pain- resolved Hx of AAA repair Hx lung cancer needs follow up of micronodule in lung c PCP patient will need outpatient colonoscopy will have close follow up outpatient. Diagnosis/Problems Diagnosis/Problems (1) Lower GI bleeding Status: Acute Assessment & Plan: Internal Hemaroids vs Ischemic Colitis vs Colon/Rectal Varices vs Ulcerative colitis Observe for 24hrs and monitor Hb and volume status. Clinical Quality Measures DVT/VTE Risk/Contraindication: Risk Factor Score Per Nursin RFS Level Per Nursing on Admit: 3=High Contraindications-Pharm: Other *list below* Other: GI bleeding PABLO MARIE DO Jan 04, 2017 11:42
--- NOTE | 2017-01-04 11:44 | Progress Note ---
Subjective Time Seen by Provider: 10:30 Subjective/Events-last exam Patient resting in bed. Even respirations. No distress noted. Reports he is feeling better. Has not had a BM today. No signs of bleed. Objective Exam Vital Signs Date Time Temp Pulse Resp B/P (MAP) Pulse Ox O2 Delivery O2 Flow Rate FiO2 01/04/17 08:00 98.0 65 20 124/80 93 Room Air 01/04/17 03:30 98.2 70 18 130/77 94 Room Air 01/03/17 23:40 97.5 67 20 126/80 92 Room Air 01/03/17 19:13 98.6 68 24 125/72 93 Room Air 01/03/17 16:05 98.4 80 19 143/90 95 Room Air 01/03/17 12:00 98.4 78 20 128/73 95 Room Air I & O 01/04/17 07:00 Intake Total 4160 ml Output Total 2550 ml Balance 1610 ml Capillary Refill : Less Than 3 Seconds General Appearance: No Apparent Distress, WD/WN HEENT: Pharynx Normal Neck: Full Range of Motion, Normal Inspection Respiratory: Chest Non Tender, No Accessory Muscle Use, No Respiratory Distress Cardiovascular: Regular Rate, Rhythm Peripheral Pulses: 2+ Dorsalis Pedis (R), 2+ Left Dors-Pedis (L), 2+ Radial Pulses (R), 2+ Radial Pulses (L) Gastrointestinal: non tender, soft Extremity: Non Tender, No Calf Tenderness, No Pedal Edema Neurologic/Psychiatric: Alert, Oriented x3, No Motor/Sensory Deficits, Normal Mood/Affect, production support consultant II-XII Norm as Tested Skin: Normal Color, Warm/Dry Results Lab Laboratory Tests Test 01/03/17 06:39 01/03/17 11:00 01/04/17 06:15 Range/Units White Blood Count 9.2 7.0 4.3-11.0 10^3/uL Red Blood Count 5.50 5.52 4.35-5.85 10^6/uL Hemoglobin 16.0 15.5 15.9 13.3-17.7 G/DL Hematocrit 48 47 49 40-54 % Mean Corpuscular Volume 88 88 80-99 FL Mean Corpuscular Hemoglobin 29 29 25-34 PG Mean Corpuscular Hemoglobin Concent 33 33 32-36 G/DL Red Cell Distribution Width 13.6 13.8 10.0-14.5 % Platelet Count 261 264 130-400 10^3/uL Mean Platelet Volume 8.5 8.6 7.4-10.4 FL Neutrophils (%) (Auto) 72 53 42-75 % Lymphocytes (%) (Auto) 23 36 12-44 % Monocytes (%) (Auto) 4 7 0-12 % Eosinophils (%) (Auto) 1 3 0-10 % Basophils (%) (Auto) 0 1 0-10 % Neutrophils # (Auto) 6.6 3.8 1.8-7.8 X 10^3 Lymphocytes # (Auto) 2.1 2.5 1.0-4.0 X 10^3 Monocytes # (Auto) 0.3 0.5 0.0-1.0 X 10^3 Eosinophils # (Auto) 0.1 0.2 0.0-0.3 10^3/uL Basophils # (Auto) 0.0 0.0 0.0-0.1 10^3/uL Sodium Level 137 137 135-145 MMOL/L Potassium Level 4.3 4.6 3.6-5.0 MMOL/L Chloride Level 101 104 98-107 MMOL/L Carbon Dioxide Level 22 27 21-32 MMOL/L Anion Gap 14 6 5-14 MMOL/L Blood Urea Nitrogen 11 10 7-18 MG/DL Creatinine 0.92 0.84 0.60-1.30 MG/DL Estimat Glomerular Filtration Rate > 60 > 60 BUN/Creatinine Ratio 12 12 Glucose Level 160 H 94 70-105 MG/DL Calcium Level 9.2 9.0 8.5-10.1 MG/DL Magnesium Level 1.8 1.8-2.4 MG/DL Total Bilirubin 0.3 0.5 0.1-1.0 MG/DL Aspartate Amino Transf (AST/SGOT) 25 20 5-34 U/L Alanine Aminotransferase (ALT/SGPT) 20 16 0-55 U/L Alkaline Phosphatase 76 66 40-136 U/L Total Protein 7.8 7.0 6.4-8.2 GM/DL Albumin 4.2 3.8 3.2-4.5 GM/DL Laboratory Tests 01/04/17 06:15: White Blood Count 7.0, Red Blood Count 5.52, Hemoglobin 15.9, Hematocrit 49, Mean Corpuscular Volume 88, Mean Corpuscular Hemoglobin 29, Mean Corpuscular Hemoglobin Concent 33, Red Cell Distribution Width 13.8, Platelet Count 264, Mean Platelet Volume 8.6, Neutrophils (%) (Auto) 53, Lymphocytes (%) (Auto) 36, Monocytes (%) (Auto) 7, Eosinophils (%) (Auto) 3, Basophils (%) (Auto) 1, Neutrophils # (Auto) 3.8, Lymphocytes # (Auto) 2.5, Monocytes # (Auto) 0.5, Eosinophils # (Auto) 0.2, Basophils # (Auto) 0.0, Sodium Level 137, Potassium Level 4.6, Chloride Level 104, Carbon Dioxide Level 27, Anion Gap 6, Blood Urea Nitrogen 10, Creatinine 0.84, Estimat Glomerular Filtration Rate > 60, BUN/ Creatinine Ratio 12, Glucose Level 94, Calcium Level 9.0, Total Bilirubin 0.5, Aspartate Amino Transf (AST/SGOT) 20, Alanine Aminotransferase (ALT/SGPT) 16, Alkaline Phosphatase 66, Total Protein 7.0, Albumin 3.8 Assessment/Plan Assessment/Plan Assessment/Plan Bloody Stools LLQ pain Hx of AAA repair No BM today. No N/V. No bleed. H&H normal today. Patient will be sent home today with Discharge instructions. We will see patient in clinic in 4 weeks for reassessment and outpatient EGD and colonoscopy. Patient verbalized understanding. Patient was already place on solid food. Diagnosis/Problems Diagnosis/Problems (1) Lower GI bleeding Status: Acute Assessment & Plan: Internal Hemaroids vs Ischemic Colitis vs Colon/Rectal Varices vs Ulcerative colitis Observe for 24hrs and monitor Hb and volume status. Clinical Quality Measures DVT/VTE Risk/Contraindication: Risk Factor Score Per Nursin RFS Level Per Nursing on Admit: 3=High Contraindications-Pharm: Other *list below* Other: GI bleeding JOHNSON BURKS APRN Jan 04, 2017 11:44
== END 2017-01-04 12:25 | disposition home or self-care (01) | DRG 378 ==
LOC: EDUNIT# 06:24 → ER 06:27 → 4TH 09:33
PROVIDERS: ADMIT Family Medicine; ATTEND Family Medicine
DX: K92.1 Melena (principal); K55.9 Vascular disorder of intestine, unspecified; K51.90 Ulcerative colitis, unspecified, without complications; F17.210 Nicotine dependence, cigarettes, uncomplicated; J44.9 Chronic obstructive pulmonary disease, unspecified; I10 Essential (primary) hypertension; Z85.118 Personal history of other malignant neoplasm of bronchus and lung; K64.8 Other hemorrhoids; R91.1 Solitary pulmonary nodule
CPT/HCPCS: 36415; 71250; 74177; 80053; 83735; 85014; 85018; 85025; 86850; 86900; 86901; 86920; 96360

== ENCOUNTER 2017-01-27 05:46 | Outpatient (CLI) | payer OTHER ==
[~2017-01-27] VITALS: Ht 185.4 cm; Wt 73.9 kg
[~2017-01-27 05:46] MED LIST changes: +LOSA25TA21 PO
== END 2017-01-27 14:06 ==
LOC: PREOP 05:46
PROVIDERS: ATTEND Surgery
DX: Z01.818 Encounter for other preprocedural examination (principal); K92.2 Gastrointestinal hemorrhage, unspecified

== ENCOUNTER 2017-01-28 04:54 | Emergency (ER) | payer OTHER ==
[~2017-01-28] VITALS: Ht 185.4 cm; Wt 73.9 kg
--- OUTSIDE RECORDS SUMMARY | 2017-01-28 04:59 | XMS REPORT ---
Author Author EDGAR PHILLIPS Organization [employer] Address Unknown Phone Unavailable Care Team Providers Care Teletypewriter Operator Name Role Phone EDGAR PHILLIPS CP Unavailable Allergies No Known Allergies Problems Problem Type Condition Code Onset Dates Condition Status Problem Unspecified otitis media 382.9 Active Problem Chronic airway obstruction, not elsewhere classified 496 Active Problem Pneumonia, organism unspecified 486 Active Medications No Known Medications Results No Known Results Summary Purpose [employer] Submission
--- OUTSIDE RECORDS SUMMARY | 2017-01-28 04:59 | XMS REPORT ---
Author Author KACI ASHBY Organization [facility] Address [address] [place] [address] Care Team Providers Care Buffing Line Set Up Worker Name Role Phone KACI ASHBY Unavailable PROBLEMS Type Condition ICD9-CM Code FWO33-AA Code Onset Dates Condition Status SNOMED Code Problem Other chronic pain G89.29 Active 81874134 Problem Essential hypertension I10 Active 37563296 Problem Abdominal aortic aneurysm (AAA) without rupture I71.4 Active 22721160 Assessment Low back pain M54.5 May, Active 501753674 Problem Chronic airway obstruction, not elsewhere classified 496 Active 48563858 Problem Pulmonary nodule R91.1 Active 549299914 ALLERGIES Substance Reaction Event Type Date Status N.K.D.A. Unknown Non Drug Allergy May, Unknown SOCIAL HISTORY No smoking Hx information available PLAN OF CARE VITAL SIGNS Height 73 in 2016-05-17 Weight 176 lbs 2016-05-17 Heart Rate 80 bpm 2016-05-17 Respiratory Rate 18 2016-05-17 BMI 23.22 kg/m2 2016-05-17 Blood pressure systolic 140 mmHg 2016-05-17 Blood pressure diastolic 90 mmHg 2016-05-17 MEDICATIONS Unknown Medications RESULTS No Results PROCEDURES Procedure Date Ordered Related Diagnosis Body Site Office Visit, Est Pt., Level 4 May 17, 2016 IMMUNIZATIONS No Known Immunizations
--- NOTE | 2017-01-28 05:25 | ED Respiratory ---
General Chief Complaint: Respiratory Problems Stated Complaint: SOB,COUGH Nursing Triage Note: pt ambulated to room with personal cane. pt complains of sob since yesterday morning. pt states he has had a cough for many days as well. Source: patient, spouse Exam Limitations: no limitations (BRICE CARRASCO) History of Present Illness Time seen by provider: 05:20 Initial Comments Patient presents ER with a one-day progressively worsening shortening of breath. 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 He has another appointment to see his cancer doctor soon. He has not undergone any radiation and chemotherapy. His surgeon was in [facility]. He says at one time he was diagnosed with pneumonia shortly after having the lobectomy and was placed on 1 week of antibiotics. Since that time he was told that he might have some pleural effusion but has not had that drained yet. He has a wet nonproductive cough and orthopnea. He does not have asthma or COPD. He does not use inhalers. He still smokes but he is trying to quit. No fevers, rashes, nausea, vomiting, diarrhea, pain other than his right chest when he coughs. He does not wear oxygen at home. (BRICE CARRASCO) Allergies and Home Medications Allergies Coded Allergies: No Known Drug Allergies (Unverified , 03/03/09) Constitutional: see HPI, No chills, No diaphoresis EENTM: No ear pain, No eye pain Respiratory: see HPI, cough, dyspnea on exertion, orthopnea, phlegm, short of breath, No wheezing Cardiovascular: see HPI (right-sided on coughing), chest pain, No syncope Gastrointestinal: No abdominal pain, No constipation, No diarrhea, No nausea, No vomiting Genitourinary: No discharge, No dysuria Musculoskeletal: No back pain, No joint pain Skin: No pruritus, No rash Psychiatric/Neurological: Denies Headache, Denies Numbness, Denies Paresthesia (BRICE CARRASCO) Past Duhpmzi-Fndtph-Ubfuzg Hx Patient Social History Alcohol Use: Denies Use Recreational Drug Use: No Smoking Status: Current Everyday Smoker Type Used: Cigarettes 2nd Hand Smoke Exposure: No Recent Foreign Travel: No Contact w/Someone Who Travel: No Recent Infectious Disease Expo: No Recent Hopitalizations: No Physical Abuse: No Sexual Abuse: No (BRICE CARRASCO) Immunizations Up To Date Tetanus Booster (TDap): More than 5yrs PED Vaccines UTD: No Date of Pneumonia Vaccine: Apr 06, 2014 Date of Influenza Vaccine: Jun 14, 2012 (BRICE CARRASCO) Seasonal Allergies Seasonal Allergies: Yes (BRICE CARRASCO) Surgeries History of Surgeries: Yes (hernia repair w/ mesh x 2, right wrist repair. AAA REPAIR. ) Surgeries: Abdominal, Orthopedic, Tonsillectomy, Vascular Surgery (BRICE CARRASCO) Respiratory History of Respiratory Disorde: Yes (lung cancer removed, ) Currently Using CPAP: No Currently Using BIPAP: No (BRICE CARRASCO) Cardiovascular History of Cardiac Disorders: Yes Cardiac Disorders: Aneurysm (BRICE CARRASCO) Neurological History of Neurological Disord: No (BRICE CARRASCO) Reproductive System Hx Reproductive Disorders: No Sexually Transmitted Disease: No (BRICE CARRASCO) Gastrointestinal History of Gastrointestinal Di: Yes Gastrointestinal Disorders: Gastrointestinal Bleed (BRICE CARRASCO) Musculoskeletal History of Musculoskeletal Dis: No (BRICE CARRASCO) Endocrine History of Endocrine Disorders: No (BRICE CARRASCO) HEENT History of HEENT Disorders: Yes (has glasses cant see small print ) Hearing Impairment: Denies (BRICE CARRASCO) Cancer History of Cancer: Yes Cancer: Lung (BRICE CARRASCO) Psychosocial History of Psychiatric Problem: No Suicide Risk Score: 0 (BRICE CARRASCO) Integumentary History of Skin or Integumenta: No (BRICE CARRASCO) Blood Transfusions History of Blood Disorders: No Adverse Reaction to a Blood Tr: No (BRICE CARRASCO) Family Medical History Significant Family History: No Pertinent Family Hx Family Medial History: Osteoporosis Respiratory disorder (BRICE CARRASCO) Family Medial History: Osteoporosis Respiratory disorder (JEREMY CARLSON MD) Physical Exam Vital Signs Vital Sign - Last 12Hours 01/28/17 05:04 Temp 97.9 Pulse 71 Resp 9 B/P (MAP) 155/98 Pulse Ox 97 O2 Delivery Nasal Cannula O2 Flow Rate 2.00 FiO2 97 (JEREMY CARLSON MD) Vital Signs Capillary Refill : Less Than 3 Seconds (BRICE CARRASCO) General Appearance: WD/WN, no apparent distress Eyes: Bilateral Eye Normal Inspection, Bilateral Eye PERRL, Bilateral Eye EOMI HEENT: PERRL/EOMI, normal ENT inspection, pharynx normal Neck: non-tender, normal inspection Respiratory: lungs clear, normal breath sounds, other (right-sided chest tenderness with well healed scar on the right anterior and posterior chest wall) Cardiovascular: normal peripheral pulses, regular rate, rhythm Gastrointestinal: normal bowel sounds, non tender, soft Extremities: non-tender, normal inspection, no pedal edema, normal capillary refill Neurologic/Psychiatric: alert, oriented x 3 Skin: normal color, warm/dry (BRICE CARRASCO) Progress/Results/Core Measures Results/Orders Lab Results Laboratory Tests Test 01/28/17 05:23 01/28/17 08:20 Range/Units White Blood Count 8.5 4.3-11.0 10^3/uL Red Blood Count 5.09 4.35-5.85 10^6/uL Hemoglobin 14.9 13.3-17.7 G/DL Hematocrit 45 40-54 % Mean Corpuscular Volume 88 80-99 FL Mean Corpuscular Hemoglobin 29 25-34 PG Mean Corpuscular Hemoglobin Concent 33 32-36 G/DL Red Cell Distribution Width 13.9 10.0-14.5 % Platelet Count 288 130-400 10^3/uL Mean Platelet Volume 8.2 7.4-10.4 FL Neutrophils (%) (Auto) 62 42-75 % Lymphocytes (%) (Auto) 27 12-44 % Monocytes (%) (Auto) 9 0-12 % Eosinophils (%) (Auto) 2 0-10 % Basophils (%) (Auto) 1 0-10 % Neutrophils # (Auto) 5.2 1.8-7.8 X 10^3 Lymphocytes # (Auto) 2.3 1.0-4.0 X 10^3 Monocytes # (Auto) 0.8 0.0-1.0 X 10^3 Eosinophils # (Auto) 0.2 0.0-0.3 10^3/uL Basophils # (Auto) 0.1 0.0-0.1 10^3/uL D-Dimer 1.47 H 0.00-0.49 UG/ML Sodium Level 137 135-145 MMOL/L Potassium Level 4.2 3.6-5.0 MMOL/L Chloride Level 101 98-107 MMOL/L Carbon Dioxide Level 26 21-32 MMOL/L Anion Gap 10 5-14 MMOL/L Blood Urea Nitrogen 10 7-18 MG/DL Creatinine 0.90 0.60-1.30 MG/DL Estimat Glomerular Filtration Rate > 60 BUN/Creatinine Ratio 11 Glucose Level 100 70-105 MG/DL Calcium Level 9.2 8.5-10.1 MG/DL Magnesium Level 1.9 1.8-2.4 MG/DL Total Bilirubin 0.4 0.1-1.0 MG/DL Aspartate Amino Transf (AST/SGOT) 26 5-34 U/L Alanine Aminotransferase (ALT/SGPT) 15 0-55 U/L Alkaline Phosphatase 68 40-136 U/L Troponin I < 0.30 <0.30 NG/ML C-Reactive Protein High Sensitivity 0.55 H 0.00-0.50 MG/DL B-Type Natriuretic Peptide 16.4 <100.0 PG/ML Total Protein 7.3 6.4-8.2 GM/DL Albumin 4.1 3.2-4.5 GM/DL Urine Color YELLOW Urine Clarity CLEAR Urine pH 7 5-9 Urine Specific [place] 1.005 L 1.016-1.022 Urine Protein NEGATIVE NEGATIVE Urine Glucose (UA) NEGATIVE NEGATIVE Urine Ketones NEGATIVE NEGATIVE Urine Nitrite NEGATIVE NEGATIVE Urine Bilirubin NEGATIVE NEGATIVE Urine Urobilinogen NORMAL NORMAL MG/DL Urine Leukocyte Esterase NEGATIVE NEGATIVE Urine RBC (Auto) 4+ H NEGATIVE Urine RBC 2-5 H /HPF Urine WBC NONE /HPF Urine Crystals NONE /LPF Urine Bacteria NEGATIVE /HPF Urine Casts NONE /LPF Urine Mucus NEGATIVE /LPF Urine Culture Indicated NO (JEREMY CARLSON MD) My Orders Orders - JEREMY CARLSON MD Ct Chest W (01/28/17 07:17) Iohexol Injection (Omnipaque 350 Mg/Ml 1 (01/28/17 07:45) Ns (Ivpb) (Sodium Chloride 0.9% Ivpb Bag (01/28/17 07:45) Azithromycin Tablet (Zithromax Tablet) (01/28/17 10:15) (JEREMY CARLSON MD) Medications Given in ED Current Medications Medications Dose Ordered Sig/Debora Route Start Time Stop Time Status Last Admin Dose Admin Albuterol/ Ipratropium 3 ml ONCE ONCE INH 01/28/17 05:30 01/28/17 05:31 DC 01/28/17 06:09 3 ML Fentanyl Citrate 50 mcg ONCE ONCE IVP 01/28/17 05:30 01/28/17 05:31 DC 01/28/17 05:54 50 MCG Iohexol 75 ml ONCE ONCE IV 01/28/17 07:45 01/28/17 07:46 DC 01/28/17 07:51 75 ML Sodium Chloride 80 ml ONCE ONCE IV 01/28/17 07:45 01/28/17 07:46 DC 01/28/17 07:51 80 ML (JEREMY CARLSON MD) Vital Signs/I&O Vital Sign - Last 12Hours 01/28/17 01/28/17 01/28/17 05:04 05:04 06:09 Temp 97.9 Pulse 71 Resp 9 B/P (MAP) 155/98 Pulse Ox 97 97 95 O2 Delivery Nasal Cannula Nasal Cannula Nasal Cannula O2 Flow Rate 2.00 2.00 3.00 FiO2 97 (JEREMY CARLSON MD) Blood Pressure Mean: 117 Progress Note : Time: 05:43 Progress Note Pleural effusion versus infection versus other. Lung sounds are clear we'll get a chest x-ray basic lab. (BRICE CARRASCO) Progress Note : Time: 10:13 Progress Note After a complete evaluation which included a CT of the chest with contrast the patient was found to have a decreasing amount of postoperative fluid in the right lung. There was however a suggestion of infiltrates in the right upper lobe of the lung. The patient was placed on Zithromax. He was asked to follow-up with Dr. Haley on Tuesday. He was returned to the care of his surgeon and oncologist for further evaluation as needed. (JEREMY CARLSON MD) ECG Initial ECG Impression Date: Jan 28, 2017 (BRICE CARRASCO) Diagnostic Imaging Diagonstic Imaging: Xray Plain Films/CT/US/NM/MRI: chest Reviewed: Reviewed by Me (BRICE CARRASCO) Transfer of Care Transfer of Care Time: 06:33 Care transferred to: [place] (BRICE CARRASCO) Departure Impression Impression: Primary Impression: Community acquired pneumonia Qualified Codes: J18.1 - Lobar pneumonia, unspecified organism Disposition: HOME, SELF-CARE Condition: Improved Departure-Patient Inst. Decision time for Depature: 10:15 (JEREMY CARLSON MD) Referrals: KACI ASHBY MD (PCP/Family) Primary Care Physician Patient Instructions: Community-Acquired Pneumonia, Adult (DC) Add. Discharge Instructions: Zithromax as prescribed. Close follow-up with Dr. Sims Tuesday. Return if any problems. All discharge instructions reviewed with patient and/or family. Voiced understanding. Copy Copies To 1: MERISSA NAIDU TITUS J Jan 28, 2017 05:25 JEREMY CARLSON MD Jan 28, 2017 10:16
[2017-01-28 05:36] LABS: BASOPHILS # (AUTO) 0.1 10^3/uL (0.0-0.1); BASOPHILS % (AUTO) 1 % (0-10); EOSINOPHILS # (AUTO) 0.2 10^3/uL (0.0-0.3); EOSINOPHILS % (AUTO) 2 % (0-10); LYMPHOCYTES # (AUTO) 2.3 X 10^3 (1.0-4.0); LYMPHOCYTES % (AUTO) 27 % (12-44); MEAN CORPUSCULAR HEMOGLOBIN 29 PG (25-34); MEAN CORPUSCULAR HGB CONC 33 G/DL (32-36); MEAN CORPUSCULAR VOLUME 88 FL (80-99); MEAN PLATELET VOLUME 8.2 FL (7.4-10.4); MONOCYTES # (AUTO) 0.8 X 10^3 (0.0-1.0); MONOCYTES % (AUTO) 9 % (0-12); NEUTROPHILS # (AUTO) 5.2 X 10^3 (1.8-7.8); NEUTROPHILS % (AUTO) 62 % (42-75); PLATELET COUNT 288 10^3/uL (130-400); RED BLOOD COUNT 5.09 10^6/uL (4.35-5.85); RED CELL DISTRIBUTION WIDTH 13.9 % (10.0-14.5); WHITE BLOOD COUNT 8.5 10^3/uL (4.3-11.0)
[2017-01-28] MEDS: fentaNYL INJECTION 100 MCG/2 ML AMP IVP ONE (05:54)
[2017-01-28 05:55] LABS: ALANINE AMINOTRANSFERASE 15 U/L (0-55); ALBUMIN 4.1 GM/DL (3.2-4.5); ANION GAP 10 MMOL/L (5-14); ASPARTATE AMINO TRANSFERASE 26 U/L (5-34); BILIRUBIN,TOTAL 0.4 MG/DL (0.1-1.0); BLOOD UREA NITROGEN 10 MG/DL (7-18); BUN/CREATININE RATIO 11; CALCIUM 9.2 MG/DL (8.5-10.1); CARBON DIOXIDE 26 MMOL/L (21-32); CHLORIDE 101 MMOL/L (98-107); GFR ESTIMATED > 60; GLUCOSE 100 MG/DL (70-105); MAGNESIUM 1.9 MG/DL (1.8-2.4); POTASSIUM 4.2 MMOL/L (3.6-5.0); SODIUM 137 MMOL/L (135-145); TOTAL PROTEIN 7.3 GM/DL (6.4-8.2); hs C REACTIVE PROTEIN 0.55 MG/DL (0.00-0.50)
[2017-01-28 06:01] LABS: TROPONIN I < 0.30 NG/ML (<0.30)
[2017-01-28] MEDS: RT-ALBUTEROL/IPRATROPIUM 3 ML (DUONEB) VIAL INH ONE (06:09)
[2017-01-28] MEDS: IOHEXOL 350 MG/ML 100 ML (OMNIPAQUE 350) VIAL IV ONE (07:51)
[2017-01-28] MEDS: NS 100 ML (IVPB) BAG IV ONE (07:51)
[2017-01-28 08:35] LABS: BILIRUBIN,URINE NEGATIVE (NEGATIVE); KETONES,URINE NEGATIVE (NEGATIVE); LEUKOCYTE ESTERASE ,URINE NEGATIVE (NEGATIVE); NITRITE,URINE NEGATIVE (NEGATIVE); PH,URINE 7 (5-9); PROTEIN,URINE NEGATIVE (NEGATIVE); UROBILINOGEN,URINE NORMAL (NORMAL)
--- NOTE | 2017-01-28 08:36 | Diagnostic Imaging Report ---
INDICATION: Shortness of breath PA and lateral chest obtained at 6:25 a.m. and compared to 04/24/16. Heart and mediastinal silhouette are normal in appearance. There is some infiltrate in the right medial base which is new compared to the prior study. There is hyperinflation compatible with COPD. The left lung is clear. IMPRESSION: COPD changes. There is some infiltrate in the right medial base which is new compared to the prior study. There is an old right-sided rib fracture. Dictated by: Dictated on workstation # [id number]
--- NOTE | 2017-01-28 09:34 | Diagnostic Imaging Report ---
PROCEDURE: CT chest with contrast only. TECHNIQUE: Multiple contiguous axial images were obtained through the chest after administration of intravenous contrast. INDICATION: Shortness of breath. Comparison made with prior examination from 01/03/2017. Ovoid low-density infrahilar opacity with peripheral sutural density or calcifications on the right measures a long axis 2.5 cm previously 3.8 cm decreased. This may be a resolving post interventional fluid collection. It is continued followup however recommended. Patchy area of airspace nodularity in the para fissural right upper lobe shows slight reduction in density likely slight improvements in focus of pneumonitis and/or partial atelectasis. No thoracic effusion or pneumothorax and there has been no adverse development. Some underlying air trapping chronic. The aorta is patent and nonaneurysmal. There is no intraluminal pulmonary arterial filling defect. The visualized upper abdomen reveals aortic stent graft treating aneurysmal dilatation only partly visualized stable where seen. IMPRESSION: Infrahilar low-density nodule on the right decreased in size may be reduction and post interventional fluid collection or decreasing mass. Some nodular infiltrates in the right upper lobe showed slight improvement. No adverse change and no evidence of PE or acute aortic pathology. Dictated by: Dictated on workstation # [id number]
[2017-01-28] MEDS: AZITHROMYCIN 250 MG TAB (ZITHROMAX) PO ONE (10:16)
[2017-01-28 10:25] VITALS: BP 150/90
== END 2017-01-28 10:25 | disposition home or self-care (01) ==
LOC: EDUNIT# 04:54 → ER 04:55
DX: J18.9 Pneumonia, unspecified organism (principal); F17.210 Nicotine dependence, cigarettes, uncomplicated; Z87.19 Personal history of other diseases of the digestive system; Z86.79 Personal history of other diseases of the circulatory system; Z85.118 Personal history of other malignant neoplasm of bronchus and lung; Z90.89 Acquired absence of other organs; Z90.2 Acquired absence of lung [part of]
CPT/HCPCS: 36415; 71020; 71260; 80053; 81000; 83735; 83880; 84484; 85025; 85379; 86141; 93041; 94640

== ENCOUNTER 2017-03-02 06:57 | Emergency (ER) | payer OTHER ==
[~2017-03-02] VITALS: Ht 182.9 cm; Wt 75.7 kg
--- OUTSIDE RECORDS SUMMARY | 2017-03-02 07:06 | XMS REPORT ---
Author Author MAYCO WILDER [facility] Address [address] 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 Active 809408224 Problem Essential hypertension I10 Active 85959709 Problem Pulmonary nodule R91.1 Active 138977397 ALLERGIES No Information SOCIAL HISTORY Never Assessed PLAN OF CARE Activity Details Follow Up 2-3 Weeks Reason:F/U PT VITAL SIGNS MEDICATIONS Unknown Medications RESULTS No Results PROCEDURES Procedure Date Ordered Result Body Site THERAPEUTIC EXERCISES Jul 19, 2016 IMMUNIZATIONS No Known Immunizations MEDICAL (GENERAL) HISTORY Type Description Date Medical History 04/09/2016 Aortic aneurysm Medical History lung nodule Surgical History aortic aneurysm repair 04/2016 Surgical History hernia repair x2 Surgical History lung resection, right 09/2016 Hospitalization History Life flighted from [facility] to [facility] for aortic aneurysm 04/2016 Hospitalization History Trauma - hospitalized x 1 month 1972 Hospitalization History Hematochezia, lung CA, [facility] 01/03/17
--- OUTSIDE RECORDS SUMMARY | 2017-03-02 07:06 | XMS REPORT ---
Author Author KACI ASHBY Organization [facility] Address [address] [place] [address] Care Team Providers Care Surveillance Monitor Name Role Phone KACI ASHBY Unavailable PROBLEMS Type Condition ICD9-CM Code [id number] Code Onset Dates Condition Status SNOMED Code Problem Chronic airway obstruction, not elsewhere classified 496 Active 24182210 Problem Incisional pain R20.8 Active 31760533 Problem Other chronic pain G89.29 Active 77209650 Problem Abdominal aortic aneurysm (AAA) without rupture I71.4 Active 18621700 Problem Squamous cell lung cancer, right C34.91 Active 514691748 Problem Essential hypertension I10 Active 20116771 Problem Pulmonary nodule R91.1 Active 358400159 ALLERGIES Substance Reaction Event Type Date Status N.K.D.A. Unknown Non Drug Allergy Jun, Unknown SOCIAL HISTORY No smoking Hx information available PLAN OF CARE Activity Details Follow Up 4 Weeks w/ Nadya f/u blood pressure and review labs Reason: VITAL SIGNS Height 73 in 2016-06-14 Weight 178.0 lbs 2016-06-14 Temperature 99.0 degrees Fahrenheit 2016-06-14 Heart Rate 78 bpm 2016-06-14 Respiratory Rate 18 2016-06-14 BMI 23.48 kg/m2 2016-06-14 Blood pressure systolic 129 mmHg 2016-06-14 Blood pressure diastolic 69 mmHg 2016-06-14 MEDICATIONS Medication Instructions Dosage Frequency Start Date End Date Duration Status Lisinopril 10 MG Orally daily Daily 24h Jun, 1 month Active RESULTS No Results PROCEDURES Procedure Date Ordered Related Diagnosis Body Site Office Visit, Est Pt., Level 4 Jun 14, 2016 IMMUNIZATIONS No Known Immunizations
--- OUTSIDE RECORDS SUMMARY | 2017-03-02 07:07 | XMS REPORT ---
Author Author KACI ASHBY Organization [facility] Address [address] [place] [address] Care Team Providers Care Building Repair Maintenance Supervisor Name Role Phone KACI ASHBY Unavailable PROBLEMS Type Condition ICD9-CM Code GFF01-RP Code Onset Dates Condition Status SNOMED Code Problem Chronic airway obstruction, not elsewhere classified 496 Active 72409771 Problem Incisional pain R20.8 Active 70009990 Problem Other chronic pain G89.29 Active 39472491 Problem Abdominal aortic aneurysm (AAA) without rupture I71.4 Active 74690758 Problem Squamous cell lung cancer, right C34.91 Active 632461078 Problem Essential hypertension I10 Active 60100359 Problem Pulmonary nodule R91.1 Active 381010837 ALLERGIES No Known Allergies SOCIAL HISTORY Never Assessed PLAN OF CARE Activity Details Follow Up 4 Weeks f/u BP check Reason: VITAL SIGNS Height 73 in 2016-07-12 Weight 175.2 lbs 2016-07-12 Temperature 99.0 degrees Fahrenheit 2016-07-12 Heart Rate 77 bpm 2016-07-12 Respiratory Rate 18 2016-07-12 BMI 23.11 kg/m2 2016-07-12 Blood pressure systolic 131 mmHg 2016-07-12 Blood pressure diastolic 69 mmHg 2016-07-12 MEDICATIONS Medication Instructions Dosage Frequency Start Date End Date Duration Status Losartan Potassium 25 MG Orally Once a day 1 tablet 24h Jul, 30 day(s) Active Aspir-81 81 MG Orally Once a day 1 tablet 24h Jul, Aug, 30 day(s) Active RESULTS Name Result Date Reference Range CT Scan : Chest w/ Contrast 2016-07-20 CT Scan : Angio AAA w/o & w/ Contrast 2016-07-20 PROCEDURES No Known procedures IMMUNIZATIONS No Known Immunizations MEDICAL (GENERAL) HISTORY Type Description Date Medical History 04/09/2016 Aortic aneurysm Medical History lung nodule Surgical History aortic aneurysm repair 04/2016 Surgical History hernia repair x2 Surgical History lung resection, right 09/2016 Hospitalization History Life flighted from [facility] to [facility] for aortic aneurysm 04/2016 Hospitalization History Trauma - hospitalized x 1 month 1971 Hospitalization History Hematochezia, lung CA, HTN-[facility] 01/03/17
--- OUTSIDE RECORDS SUMMARY | 2017-03-02 07:07 | XMS REPORT ---
Author Author MAYCO WILDER [facility] Address [address] [place] [address] Care Team Providers Care Planting Machine Operator Name Role Phone MAYCO WILDER Unavailable PROBLEMS Type Condition ICD9-CM Code KFQ53-NO Code Onset Dates Condition Status SNOMED Code Problem Chronic airway obstruction, not elsewhere classified 496 Active 92569652 Problem Incisional pain R20.8 Active 22135347 Problem Other chronic pain G89.29 Active 67041463 Problem Abdominal aortic aneurysm (AAA) without rupture I71.4 Active 35933853 Problem Squamous cell lung cancer, right C34.91 Active 635440415 Problem Essential hypertension I10 Active 47084812 Problem Pulmonary nodule R91.1 Active 315110910 ALLERGIES Unknown Allergies SOCIAL HISTORY No smoking Hx information available PLAN OF CARE Activity Details Follow Up 2 Weeks Reason:F/u LBP VITAL SIGNS MEDICATIONS Unknown Medications RESULTS No Results PROCEDURES Procedure Date Ordered Related Diagnosis Body Site PT EVALUATION Jun 28, 2016 THERAPEUTIC EXERCISES Jun 28, 2016 IMMUNIZATIONS No Known Immunizations
--- OUTSIDE RECORDS SUMMARY | 2017-03-02 07:07 | XMS REPORT ---
Author Author KACI ASHBY Organization [facility] Address [address] [place] [address] Care Team Providers Care Fingerprint Expert Name Role Phone KACI ASHBY Unavailable PROBLEMS Type Condition ICD9-CM Code QVG34-SC Code Onset Dates Condition Status SNOMED Code Problem Chronic airway obstruction, not elsewhere classified 496 Active 21333431 Problem Incisional pain R20.8 Active 86865670 Problem Other chronic pain G89.29 Active 53504849 Problem Abdominal aortic aneurysm (AAA) without rupture I71.4 Active 52527897 Problem Squamous cell lung cancer, right C34.91 Active 758659470 Problem Essential hypertension I10 Active 98435830 Problem Pulmonary nodule R91.1 Active 689187826 ALLERGIES No Information SOCIAL HISTORY Never Assessed PLAN OF CARE VITAL SIGNS MEDICATIONS Unknown Medications RESULTS No Results PROCEDURES No Known procedures IMMUNIZATIONS No Known Immunizations MEDICAL (GENERAL) HISTORY Type Description Date Medical History 04/09/2016 Aortic aneurysm Medical History lung nodule Surgical History aortic aneurysm repair 04/2016 Surgical History hernia repair x2 Surgical History lung resection, right 09/2016 Hospitalization History Life flighted from [facility] for aortic aneurysm 04/2016 Hospitalization History Trauma - hospitalized x 1 month 1972 Hospitalization History Hematochezia, lung CA, HTN-[facility] 01/03/17
[2017-03-02] MEDS ORDERED: LOSA25TA21 (07:17)
[2017-03-02] MEDS ORDERED: DOXY100T2 PO (07:19)
--- NOTE | 2017-03-02 07:19 | ED Integumentary General ---
General Chief Complaint: Bite-Animal/Human/Insect Stated Complaint: TICK ON PRIVATE PARTS Nursing Triage Note: ARRIVED VIA AMB TO ROOM 07. STATES HE HAS A TICK EMBEDED ON HIS PENIS. THINKS IT HAS BEEN THERE FOR ABOUT 24HOURS. Source: patient Exam Limitations: no limitations History of Present Illness Time seen by provider: 07:09 Initial Comments This 61-year-old gentleman presents to the emergency room with complaints of a tick adhered to the left lateral penis just proximal to the glans. He has been unable to remove it himself. He just noticed it this morning. He has no secondary symptoms. Allergies and Home Medications Allergies Coded Allergies: No Known Drug Allergies (Unverified , 03/03/09) Home Medications Doxycycline Hyclate 100 Mg Tablet, 100 MG PO BID, #20 Prescribed by: SAMIA GTZ on 03/02/17 0719 Losartan Potassium 25 Mg Tablet, (Reported) Constitutional: no symptoms reported Skin: see HPI Past Batewks-Bykepg-Jcglkw Hx Patient Social History Alcohol Use: Denies Use Recreational Drug Use: No Smoking Status: Current Everyday Smoker Type Used: Cigarettes 2nd Hand Smoke Exposure: No Recent Foreign Travel: No Contact w/Someone Who Travel: No Recent Infectious Disease Expo: No Recent Hopitalizations: No Immunizations Up To Date Tetanus Booster (TDap): More than 5yrs PED Vaccines UTD: No Date of Pneumonia Vaccine: Apr 06, 2014 Date of Influenza Vaccine: Jun 14, 2012 Seasonal Allergies Seasonal Allergies: Yes Surgeries History of Surgeries: Yes (hernia repair w/ mesh x 2, right wrist repair. AAA REPAIR. ) Surgeries: Abdominal, Orthopedic, Tonsillectomy, Vascular Surgery Respiratory History of Respiratory Disorde: Yes (lung cancer removed, ) Currently Using CPAP: No Currently Using BIPAP: No Cardiovascular History of Cardiac Disorders: Yes Cardiac Disorders: Aneurysm Neurological History of Neurological Disord: No Reproductive System Hx Reproductive Disorders: No Sexually Transmitted Disease: No Genitourinary History of Genitourinary Disor: No Gastrointestinal History of Gastrointestinal Di: Yes Gastrointestinal Disorders: Gastrointestinal Bleed Musculoskeletal History of Musculoskeletal Dis: No Endocrine History of Endocrine Disorders: No HEENT History of HEENT Disorders: Yes (has glasses cant see small print ) Hearing Impairment: Denies Cancer History of Cancer: Yes Cancer: Lung Psychosocial History of Psychiatric Problem: No Integumentary History of Skin or Integumenta: No Blood Transfusions History of Blood Disorders: No Adverse Reaction to a Blood Tr: No Reviewed Nursing Assessment Reviewed/Agree w Nursing PMH: Yes Family Medical History Significant Family History: No Pertinent Family Hx Family Medial History: Osteoporosis Respiratory disorder Physical Exam Vital Signs Vital Sign - Last 12Hours 03/02/17 07:10 Temp 98.0 Pulse 76 Resp 18 B/P (MAP) 136/75 Pulse Ox 94 Capillary Refill : Less Than 3 Seconds General Appearance: WD/WN, no apparent distress Skin: other (there is a small tick approximately 2 mm in size adhered to the left lateral penis just proximal to the glans. No surrounding inflammation) Progress/Results/Core Measures Results/Orders Vital Signs/I&O Vital Sign - Last 12Hours 03/02/17 03/02/17 07:10 07:21 Temp 98.0 98.0 Pulse 76 76 Resp 18 18 B/P (MAP) 136/75 Pulse Ox 94 94 Blood Pressure Mean: 95 Progress Note : Progress Note Skin and tick were cleaned with alcohol. Tick was easily removed with forceps. A printed prescription for doxycycline was provided that can be filled should patient develop symptoms of tickborne disease. Departure Impression Impression: Primary Impression: Tick bite Qualified Codes: W57.XXXA - Bitten or stung by nonvenomous insect and other nonvenomous arthropods, initial encounter Disposition: 01 HOME, SELF-CARE Condition: Improved Departure-Patient Inst. Decision time for Depature: 07:15 Referrals: KACI ASHBY MD (PCP/Family) Primary Care Physician Patient Instructions: Lyme Disease Add. Discharge Instructions: Monitor the area for increasing redness, heat, pain, and swelling. If you notice these symptoms start your antibiotic. Additionally watch for fever greater than 100, rash, headaches, etc. If you develop these symptoms within the next few weeks, please seek prompt care and start your antibiotic. Do not start antibiotics unless you have symptoms of tickborne disease. All discharge instructions reviewed with patient and/or family. Voiced understanding. Scripts Doxycycline Hyclate (Doxycycline Hyclate) 100 Mg Tablet 100 MG PO BID, #20 TAB Prov: SAMIA ADAMS MD 03/02/17 SAMIA ADAMS MD Mar 02, 2017 07:19
[2017-03-02 07:21] VITALS: BP 136/75
== END 2017-03-02 07:21 | disposition home or self-care (01) ==
LOC: EDUNIT# 06:57 → ER 07:02
DX: S30.862A Insect bite (nonvenomous) of penis, initial encounter (principal); F17.210 Nicotine dependence, cigarettes, uncomplicated; Z90.89 Acquired absence of other organs; Z85.118 Personal history of other malignant neoplasm of bronchus and lung; W57.XXXA Bitten or stung by nonvenomous insect and other nonvenomous arthropods, initial encounter
CPT/HCPCS: 99283

== ENCOUNTER 2017-08-25 09:18 | Outpatient (RCR) | payer SELFPAY ==
[~2017-08-25 09:18] MED LIST changes: +DOXY100T2 PO; +LOSA25TA21
[2017-08-25 09:35] LABS: BASOPHILS % (AUTO) 1 % (0-10); EOSINOPHILS # (AUTO) 0.1 10^3/uL (0.0-0.3); EOSINOPHILS % (AUTO) 2 % (0-10); HEMATOCRIT 46 % (40-54); HEMOGLOBIN 15.7 G/DL (13.3-17.7); LYMPHOCYTES # (AUTO) 2.1 X 10^3 (1.0-4.0); LYMPHOCYTES % (AUTO) 33 % (12-44); MEAN CORPUSCULAR HEMOGLOBIN 31 PG (25-34); MEAN CORPUSCULAR HGB CONC 34 G/DL (32-36); MEAN CORPUSCULAR VOLUME 91 FL (80-99); MEAN PLATELET VOLUME 8.3 FL (7.4-10.4); MONOCYTES # (AUTO) 0.4 X 10^3 (0.0-1.0); MONOCYTES % (AUTO) 7 % (0-12); NEUTROPHILS # (AUTO) 3.8 X 10^3 (1.8-7.8); NEUTROPHILS % (AUTO) 58 % (42-75); PLATELET COUNT 284 10^3/uL (130-400); RED BLOOD COUNT 5.09 10^6/uL (4.35-5.85); RED CELL DISTRIBUTION WIDTH 13.5 % (10.0-14.5); WHITE BLOOD COUNT 6.5 10^3/uL (4.3-11.0)
[2017-08-25 09:52] LABS: ALANINE AMINOTRANSFERASE 18 U/L (0-55); ALBUMIN 4.4 GM/DL (3.2-4.5); ALKALINE PHOSPHATASE 57 U/L (40-136); BILIRUBIN,TOTAL 0.4 MG/DL (0.1-1.0); BUN/CREATININE RATIO 16; CALCIUM 9.5 MG/DL (8.5-10.1); CARBON DIOXIDE 28 MMOL/L (21-32); CHLORIDE 102 MMOL/L (98-107); CREATININE SERUM 0.81 MG/DL (0.60-1.30); GFR ESTIMATED > 60; GLUCOSE 97 MG/DL (70-105); POTASSIUM 4.2 MMOL/L (3.6-5.0); SODIUM 138 MMOL/L (135-145); TOTAL PROTEIN 7.4 GM/DL (6.4-8.2)
[2017-08-29] MEDS ORDERED: TRAM-42 PO (09:45)
[2017-09-08] MEDS ORDERED: ACHD5005 PO (10:17)
[2017-09-15] MEDS ORDERED: TIZANIDINE PO (08:43)
[2017-09-15] MEDS ORDERED: HCPR10FM RC (09:37)
== END 2017-11-23 | disposition home or self-care (01) ==
LOC: LAB 09:18
PROVIDERS: ATTEND Internal Medicine Hematology & Oncology
DX: C34.2 Malignant neoplasm of middle lobe, bronchus or lung (principal)
CPT/HCPCS: 36415; 80053; 85025

== ENCOUNTER 2017-08-29 07:03 | Emergency (ER) | payer SELFPAY ==
[~2017-08-29] VITALS: Ht 185.4 cm; Wt 75.7 kg
--- NOTE | 2017-08-29 07:50 | ED Abdominal Pain ---
General Chief Complaint: General Problems/Pain Stated Complaint: R SIDE LEG PAIN/PREV SURGERY Nursing Triage Note: PT STATES HE HAD A AAA SURGERY ABOUT ONE YEAR AGO, CC OF PAIN AT THE SCAR SITE FROM THE SURGERY. ALSO HX OF LOW BACK AND RT KNEE PAIN THAT'S NORMAL. Sepsis Screen: No Definite Risk Source of Information: Patient History of Present Illness Date Seen by Provider: Aug 29, 2017 Time Seen by Provider: 07:35 Initial Comments PT ARRIVES VIA POV C/O RLQ PAIN OVER SCAR FROM PREVIOUS AAA REPAIR PAIN BEGAN AT 0430 THIS AM, WHILE SITTING AND WATCHING TV PAIN COMES AND GOES --RATES PAIN 1/10 NOW, WAS 10/10 AT WORST. STATES IT FEELS LIKE A BURNING, PULLING SENSATION WITH MOVEMENT PAIN RADIATES TO RIGHT FLANK AND DOWN TO ANTERIOR RIGHT THIGH PAIN IS WORSE WITH SITTING UP PT HAS NOT TAKEN ANYTHING FOR PAIN NO NAUSEA/VOMITING/DIARRHEA. HAS BEEN CONSTIPATED BUT DID HAVE A BM THIS AM. ATE TOAST AT 0500, AFTER THE PAIN STARTED. NO URINARY SYMPTOMS NO FEVER PT HAS CHRONIC RIGHT KNEE PAIN AND BACK PAIN AND THAT PAIN IS NOT ANY DIFFERENT THAN NORMAL. ( IS SUPPOSED TO BE REFERRED TO [facility] 4 STATES,BUT DOES NOT HAVE AN APPOINTMENT YET) PT HAS ALSO HAD BILATERAL INGUINAL HERNIA REPAIRS, BUT PAIN IS NOT IN THE SAME AREA. PCP: DR. ASHBY ONCOLOGY: [facility] [place] Allergies and Home Medications Allergies Coded Allergies: No Known Drug Allergies (Unverified , 03/03/09) Home Medications Doxycycline Hyclate 100 Mg Tablet, 100 MG PO BID Prescribed by: SAMIA GTZ on 03/02/17 0719 Tramadol HCl 50 Mg Tablet, 50 MG PO Q4H Prescribed by: GARRETT ADKINS on 08/29/17 0945 Patient Home Medication List Home Medication List Reviewed: Yes Review of Systems Constitutional: no symptoms reported Respiratory: No Symptoms Reported Cardiovascular: No Symptoms Reported Gastrointestinal: See HPI, Abdominal Pain, Constipated, Denies Diarrhea, Denies Nausea, Denies Poor Appetite, Denies Vomiting Genitourinary: No Symptoms Reported Musculoskeletal: see HPI, back pain, joint pain Skin: no symptoms reported, No rash Psychiatric/Neurological: No Symptoms Reported, Denies Numbness, Denies Paresthesia, Denies Tingling, Denies Weakness Endocrine: No Symptoms Reported Hematologic/Lymphatic: No Symptoms Reported Past Imttfeo-Pwdgkf-Axvldp Hx Patient Social History Alcohol Use: Past History (HISTORY OF ALCOHOL ABUSE) Recreational Drug Use: No Smoking Status: Current Everyday Smoker (2 PPD) Type Used: Cigarettes (2 PPD) 2nd Hand Smoke Exposure: No Recent Foreign Travel: No Contact w/Someone Who Travel: No Recent Infectious Disease Expo: No Recent Hopitalizations: No Immunizations Up To Date Tetanus Booster (TDap): More than 5yrs PED Vaccines UTD: No Date of Pneumonia Vaccine: Apr 06, 2014 Date of Influenza Vaccine: Jun 14, 2012 Seasonal Allergies Seasonal Allergies: Yes Surgeries History of Surgeries: Yes (BILATERAL INGUINAL HERNIA REPAIR WITH MESH; RIGHT WRIST REPAIR; EGD'S/COLONOSCOPIES; AAA REPAIR WITH BILATERAL AORTO-ILIAC STENTS. RIGHT MIDDLE LOBECTOMY ; NAIL TO RIGHT KNEE REMOVED) Surgeries: Abdominal, Lobectomy, Orthopedic, Tonsillectomy, Vascular Surgery Respiratory History of Respiratory Disorde: Yes (lung cancer removed,--RML ) Currently Using CPAP: No Currently Using BIPAP: No Cardiovascular History of Cardiac Disorders: Yes (AAA REPAIRED) Cardiac Disorders: Aneurysm, Hypertension Neurological History of Neurological Disord: No Reproductive System Hx Reproductive Disorders: No Sexually Transmitted Disease: No Genitourinary History of Genitourinary Disor: No Gastrointestinal History of Gastrointestinal Di: Yes Gastrointestinal Disorders: Gastrointestinal Bleed Musculoskeletal History of Musculoskeletal Dis: Yes (CHRONIC BACK PAIN, CHRONIC RIGHT KNEE PAIN ) Musculoskeletal Disorders: Arthritis, Chronic Back Pain Endocrine History of Endocrine Disorders: No HEENT History of HEENT Disorders: Yes (has glasses cant see small print MISSING TEETH ) Hearing Impairment: Denies Cancer History of Cancer: Yes Cancer: Lung Did You Recieve Any Treatments: Yes (RIGHT MIDDLE LOBECTOMY; NO CHEMO OR RADIATION) Type of Tx Receive: Surgical Intervention Psychosocial History of Psychiatric Problem: No Integumentary History of Skin or Integumenta: No Blood Transfusions History of Blood Disorders: No Adverse Reaction to a Blood Tr: No Family Medical History Family Medial History: Osteoporosis Respiratory disorder Physical Exam Vital Signs VS - Last 72 Hours, by Label 08/29/17 07:23 Temp 98.2 Pulse 70 Resp 22 B/P (MAP) 133/81 (98) Pulse Ox 95 O2 Delivery Room Air Capillary Refill : Less Than 3 Seconds General Appearance: no apparent distress, thin, other (TALKS NON-STOP,SMILING, JOKING, LAUGHING. DIFFICULT TO KEEP ON SUBJECT) HEENT: other (EDENTULOUS) Respiratory: normal breath sounds, no respiratory distress, no accessory muscle use Cardiovascular: regular rate, rhythm, no murmur Gastrointestinal: normal bowel sounds, soft, no organomegaly, no pulsatile mass , No distended, No guarding, No rebound, tenderness (RLQ OVER SCAR), No hernia, No mass Extremities: normal range of motion, non-tender, normal inspection, no pedal edema, no calf tenderness, normal capillary refill Back: normal inspection, no CVA tenderness, no vertebral tenderness Neurologic/Psychiatric: traffic ii manager II-XII nml as tested, no motor/sensory deficits, alert, normal mood/affect, oriented x 3 Skin: normal color, warm/dry Progress/Results/Core Measures Results/Orders Lab Results Laboratory Tests Test 08/29/17 07:50 08/29/17 08:00 08/29/17 08:30 Range/Units Urine Color YELLOW Urine Clarity CLEAR Urine pH 8 5-9 Urine Specific [place] 1.010 L 1.016-1.022 Urine Protein NEGATIVE NEGATIVE Urine Glucose (UA) NEGATIVE NEGATIVE Urine Ketones NEGATIVE NEGATIVE Urine Nitrite NEGATIVE NEGATIVE Urine Bilirubin NEGATIVE NEGATIVE Urine Urobilinogen NORMAL NORMAL MG/DL Urine Leukocyte Esterase NEGATIVE NEGATIVE Urine RBC (Auto) 2+ H NEGATIVE Urine RBC 2-5 H /HPF Urine WBC NONE /HPF Urine Crystals NONE /LPF Urine Bacteria NEGATIVE /HPF Urine Casts NONE /LPF Urine Mucus NEGATIVE /LPF Urine Culture Indicated NO White Blood Count 8.4 4.3-11.0 10^3/uL Red Blood Count 5.07 4.35-5.85 10^6/uL Hemoglobin 15.7 13.3-17.7 G/DL Hematocrit 46 40-54 % Mean Corpuscular Volume 91 80-99 FL Mean Corpuscular Hemoglobin 31 25-34 PG Mean Corpuscular Hemoglobin Concent 34 32-36 G/DL Red Cell Distribution Width 13.6 10.0-14.5 % Platelet Count 288 130-400 10^3/uL Mean Platelet Volume 8.7 7.4-10.4 FL Neutrophils (%) (Auto) 64 42-75 % Lymphocytes (%) (Auto) 27 12-44 % Monocytes (%) (Auto) 7 0-12 % Eosinophils (%) (Auto) 2 0-10 % Basophils (%) (Auto) 0 0-10 % Neutrophils # (Auto) 5.4 1.8-7.8 X 10^3 Lymphocytes # (Auto) 2.2 1.0-4.0 X 10^3 Monocytes # (Auto) 0.6 0.0-1.0 X 10^3 Eosinophils # (Auto) 0.2 0.0-0.3 10^3/uL Basophils # (Auto) 0.0 0.0-0.1 10^3/uL My Orders Orders - GARRETT ADKINS DO Ua Culture If Indicated (08/29/17 07:41) Saline Lock/Iv-Start (08/29/17 07:44) Amylase (08/29/17 07:44) Cbc With Automated Diff (08/29/17 07:44) Comprehensive Metabolic Panel (08/29/17 07:44) Lipase (08/29/17 07:44) Ct Abd/Pelvis Wo(Kidney Stone) (08/29/17 08:29) Abdomen/Kub 1view (08/29/17 08:29) Ketorolac Injection (Toradol Injection) (08/29/17 09:30) Vital Signs/I&O Vital Sign - Last 12Hours 08/29/17 07:23 Temp 98.2 Pulse 70 Resp 22 B/P (MAP) 133/81 (98) Pulse Ox 95 O2 Delivery Room Air Blood Pressure Mean: 98 Diagnostic Imaging Comments ABD XRAYS--NO ACUTE PROCESS CT ABDOMEN/PELVIS--NO ACUTE PROCESS, POST OP CHANGES PER RADIOLOGIST REPORTS @ 0915 Reviewed: Reviewed by Me Departure Impression Impression: Primary Impression: RLQ abdominal pain Additional Impression: Microscopic hematuria Disposition: 01 HOME, SELF-CARE Condition: Improved Departure-Patient Inst. Referrals: KACI ASHBY MD (PCP/Family) Primary Care Physician Patient Instructions: Acute Abdomen (Belly Pain), Adult (DC), Blood in the Urine (Hematuria), Adult (DC) Add. Discharge Instructions: MOIST HEAT TO ABDOMEN AT 20 MINUTE INTERVALS FOLLOW UP WITH DR. ASHBY THIS WEEK FOR FURTHER CARE All discharge instructions reviewed with patient and/or family. Voiced understanding. Scripts Tramadol HCl (Ultram) 50 Mg Tablet 50 MG PO Q4H, #20 TAB Prov: GARRETT ADKINS DO 08/29/17 GARRETT ADKINS DO Aug 29, 2017 07:50
[2017-08-29 08:06] LABS: BASOPHILS % (AUTO) 0 % (0-10); EOSINOPHILS # (AUTO) 0.2 10^3/uL (0.0-0.3); EOSINOPHILS % (AUTO) 2 % (0-10); HEMATOCRIT 46 % (40-54); HEMOGLOBIN 15.7 G/DL (13.3-17.7); LYMPHOCYTES # (AUTO) 2.2 X 10^3 (1.0-4.0); LYMPHOCYTES % (AUTO) 27 % (12-44); MEAN CORPUSCULAR HEMOGLOBIN 31 PG (25-34); MEAN CORPUSCULAR HGB CONC 34 G/DL (32-36); MEAN CORPUSCULAR VOLUME 91 FL (80-99); MEAN PLATELET VOLUME 8.7 FL (7.4-10.4); MONOCYTES # (AUTO) 0.6 X 10^3 (0.0-1.0); MONOCYTES % (AUTO) 7 % (0-12); NEUTROPHILS # (AUTO) 5.4 X 10^3 (1.8-7.8); NEUTROPHILS % (AUTO) 64 % (42-75); PLATELET COUNT 288 10^3/uL (130-400); RED BLOOD COUNT 5.07 10^6/uL (4.35-5.85); RED CELL DISTRIBUTION WIDTH 13.6 % (10.0-14.5); WHITE BLOOD COUNT 8.4 10^3/uL (4.3-11.0)
[2017-08-29 08:06] LABS: BILIRUBIN,URINE NEGATIVE (NEGATIVE); CLARITY,URINE CLEAR; COLOR,URINE YELLOW; GLUCOSE, URINE (UA) NEGATIVE (NEGATIVE); KETONES,URINE NEGATIVE (NEGATIVE); LEUKOCYTE ESTERASE ,URINE NEGATIVE (NEGATIVE); NITRITE,URINE NEGATIVE (NEGATIVE); PH,URINE 8 (5-9); PROTEIN,URINE NEGATIVE (NEGATIVE); UROBILINOGEN,URINE NORMAL (NORMAL)
[2017-08-29 08:26] LABS: BACTERIA,URINE NEGATIVE /HPF
--- NOTE | 2017-08-29 09:08 | Diagnostic Imaging Report ---
INDICATION: Right lower quadrant pain. TIME OF EXAMINATION: 09:18 a.m. FINDINGS: Aortic stent graft is in place. Bowel gas pattern is unremarkable. There are surgical clips in the right groin. There is no free air. No pathologic calcifications are seen. IMPRESSION: No acute abnormalities detected. Dictated by: Dictated on workstation # [id number]
--- NOTE | 2017-08-29 09:11 | Diagnostic Imaging Report ---
PROCEDURE: CT urinary tract, rule out kidney stone. TECHNIQUE: Multiple contiguous axial images were obtained through the abdomen and pelvis without the use of intravenous contrast. INDICATION: Right lower quadrant pain. Post surgical changes in the region of right hilum are identified. Lung bases are clear. The liver is without evidence of a discrete mass. The gallbladder is unremarkable. Pancreas and spleen are unremarkable. No adrenal mass is detected. No renal calculi or hydronephrosis is identified. Abdominal aortic aneurysm containing aortic stent graft is again noted. No periaortic fluid collection is identified. The small and large bowel loops are of normal caliber. No obstruction is seen. The appendix is visualized and unremarkable. The moderately distended urinary bladder is unremarkable. Postsurgical changes in the right groin are identified. IMPRESSION: Postop changes in the chest and abdomen. No acute feature in the abdomen or pelvis is identified. Dictated by: Dictated on workstation # [id number]
[2017-08-29] MEDS ORDERED: KETOROLAC 30 MG/ML VIAL IVP ONE (09:30)
[2017-08-29] MEDS ORDERED: TRAM-42 PO (09:45)
[2017-08-29 10:13] VITALS: BP 115/70
[2017-08-29 10:28] LABS: ALANINE AMINOTRANSFERASE 18 U/L (0-55); ALBUMIN 4.5 GM/DL (3.2-4.5); ALKALINE PHOSPHATASE 63 U/L (40-136); AMYLASE 89 U/L (25-125); BILIRUBIN,TOTAL 0.5 MG/DL (0.1-1.0); BUN/CREATININE RATIO 16; CALCIUM 9.5 MG/DL (8.5-10.1); CARBON DIOXIDE 31 MMOL/L (21-32); CHLORIDE 102 MMOL/L (98-107); CREATININE SERUM 0.93 MG/DL (0.60-1.30); GFR ESTIMATED > 60; GLUCOSE 90 MG/DL (70-105); LIPASE 46 U/L (8-78); POTASSIUM 4.3 MMOL/L (3.6-5.0); SODIUM 139 MMOL/L (135-145); TOTAL PROTEIN 7.7 GM/DL (6.4-8.2)
== END 2017-08-29 10:13 | disposition home or self-care (01) ==
LOC: EDUNIT# 07:03 → ER 07:05
DX: R10.31 Right lower quadrant pain (principal); R31.21 Asymptomatic microscopic hematuria; I10 Essential (primary) hypertension; F17.210 Nicotine dependence, cigarettes, uncomplicated; Z86.79 Personal history of other diseases of the circulatory system; Z85.118 Personal history of other malignant neoplasm of bronchus and lung; Z87.19 Personal history of other diseases of the digestive system; Z90.89 Acquired absence of other organs; Z90.2 Acquired absence of lung [part of]; Z98.890 Other specified postprocedural states
CPT/HCPCS: 36415; 74018; 74176; 80053; 81000; 82150; 83690; 85025; 96374

== ENCOUNTER 2017-09-08 08:29 | Emergency (ER) | payer SELFPAY ==
[~2017-09-08] VITALS: Ht 185.4 cm; Wt 75.3 kg
[~2017-09-08 08:29] MED LIST changes: +TRAM-42 PO
[2017-09-08] MEDS ORDERED: KETOROLAC 30 MG/ML VIAL IVP STA (08:49)
[2017-09-08] MEDS ORDERED: NS IV 1000 ML 1,000 ML IV ONE (08:49)
[2017-09-08] MEDS ORDERED: fentaNYL INJECTION 100 MCG/2 ML AMP IVP STA (08:49)
[2017-09-08 08:58] LABS: BASOPHILS % (AUTO) 0 % (0-10); EOSINOPHILS # (AUTO) 0.1 10^3/uL (0.0-0.3); EOSINOPHILS % (AUTO) 2 % (0-10); HEMATOCRIT 46 % (40-54); HEMOGLOBIN 15.7 G/DL (13.3-17.7); LYMPHOCYTES # (AUTO) 2.1 X 10^3 (1.0-4.0); LYMPHOCYTES % (AUTO) 26 % (12-44); MEAN CORPUSCULAR HEMOGLOBIN 31 PG (25-34); MEAN CORPUSCULAR HGB CONC 34 G/DL (32-36); MEAN CORPUSCULAR VOLUME 91 FL (80-99); MEAN PLATELET VOLUME 8.6 FL (7.4-10.4); MONOCYTES # (AUTO) 0.5 X 10^3 (0.0-1.0); MONOCYTES % (AUTO) 7 % (0-12); NEUTROPHILS # (AUTO) 5.2 X 10^3 (1.8-7.8); NEUTROPHILS % (AUTO) 65 % (42-75); PLATELET COUNT 264 10^3/uL (130-400); RED BLOOD COUNT 5.02 10^6/uL (4.35-5.85); RED CELL DISTRIBUTION WIDTH 13.5 % (10.0-14.5)
[2017-09-08 08:59] LABS: BILIRUBIN,URINE NEGATIVE (NEGATIVE); CLARITY,URINE CLEAR; COLOR,URINE YELLOW; GLUCOSE, URINE (UA) NEGATIVE (NEGATIVE); KETONES,URINE NEGATIVE (NEGATIVE); LEUKOCYTE ESTERASE ,URINE NEGATIVE (NEGATIVE); NITRITE,URINE NEGATIVE (NEGATIVE); PH,URINE 6.5 (5-9); PROTEIN,URINE NEGATIVE (NEGATIVE); UROBILINOGEN,URINE NORMAL (NORMAL)
--- NOTE | 2017-09-08 09:01 | ED General ---
General Stated Complaint: LEFT HIP PAIN,DIZZINESS Source of Information: Patient Exam Limitations: No Limitations History of Present Illness Date Seen by Provider: Sep 08, 2017 Time Seen by Provider: 08:41 Initial Comments Here with report of left flank pain actually that started lower that radiated up to the area of the kidney. When the pain hits it does cause dizziness and some nausea. Started about an hour ago. He was having to [place] to have a follow-up appointment with his oncologist but was just getting out of town and the pain hit again. This concerned him so they turned around and came to the hospital here. Denies vomiting but has had some nausea. Denies fever or chills. Noted that he had a little bit of burning with urination after arrival here. Denies diarrhea. Reports that he has been cancer free after some type of lung cancer that was on the right. He is currently in follow-up for that. Timing/Duration: 1 Hour, Changing Over Time, Intermittent Severity: Moderate Associated Systoms: No Chest Pain, No Cough, No Fever/Chills, Nausea/Vomiting, No Shortness of Air, No Weakness Allergies and Home Medications Allergies Coded Allergies: No Known Drug Allergies (Unverified , 03/03/09) Home Medications Doxycycline Hyclate 100 Mg Tablet, 100 MG PO BID Prescribed by: SAMIA GTZ on 03/02/17 0719 Tramadol HCl 50 Mg Tablet, 50 MG PO Q4H Prescribed by: GARRETT ADKINS on 08/29/17 0945 Patient Home Medication List Home Medication List Reviewed: Yes Constitutional: see HPI, No chills, dizziness (with episodes), No fever EENTM: no symptoms reported Respiratory: no symptoms reported Cardiovascular: no symptoms reported Gastrointestinal: abdominal pain, nausea, No vomiting Genitourinary: no symptoms reported Musculoskeletal: back pain, muscle pain Skin: no symptoms reported Psychiatric/Neurological: No Symptoms Reported All Other Systems Reviewed Negative Unless Noted: Yes Past Xxulfxr-Hkhwtw-Jdsijz Hx Patient Social History Alcohol Use: Denies Use Recreational Drug Use: No Smoking Status: Current Everyday Smoker Type Used: Cigarettes 2nd Hand Smoke Exposure: No Recent Foreign Travel: No Contact w/Someone Who Travel: No Recent Hopitalizations: No Immunizations Up To Date Tetanus Booster (TDap): More than 5yrs PED Vaccines UTD: No Date of Pneumonia Vaccine: Apr 06, 2014 Date of Influenza Vaccine: Jun 14, 2012 Seasonal Allergies Seasonal Allergies: Yes Surgeries History of Surgeries: Yes Surgeries: Abdominal, Lobectomy, Orthopedic, Tonsillectomy, Vascular Surgery Respiratory History of Respiratory Disorde: Yes (lung cancer removed,--RML ) Currently Using CPAP: No Currently Using BIPAP: No Cardiovascular History of Cardiac Disorders: Yes (AAA REPAIRED) Cardiac Disorders: Aneurysm, Hypertension Neurological History of Neurological Disord: No Reproductive System Hx Reproductive Disorders: No Sexually Transmitted Disease: No Genitourinary History of Genitourinary Disor: No Gastrointestinal History of Gastrointestinal Di: Yes Gastrointestinal Disorders: Gastrointestinal Bleed Musculoskeletal History of Musculoskeletal Dis: Yes (CHRONIC BACK PAIN, CHRONIC RIGHT KNEE PAIN ) Musculoskeletal Disorders: Arthritis, Chronic Back Pain Endocrine History of Endocrine Disorders: No HEENT History of HEENT Disorders: Yes (has glasses cant see small print MISSING TEETH ) Hearing Impairment: Denies Cancer History of Cancer: Yes Cancer: Lung Did You Recieve Any Treatments: Yes Type of Tx Receive: Surgical Intervention Psychosocial History of Psychiatric Problem: No Integumentary History of Skin or Integumenta: No Blood Transfusions History of Blood Disorders: No Adverse Reaction to a Blood Tr: No Reviewed Nursing Assessment Reviewed/Agree w Nursing PMH: Yes Family Medical History Significant Family History: No Pertinent Family Hx Family Medial History: Osteoporosis Respiratory disorder Physical Exam Vital Signs Vital Signs - First Documented 09/08/17 08:35 Temp 98.4 Pulse 68 Resp 18 B/P (MAP) 135/78 (97) O2 Delivery Room Air Capillary Refill : General Appearance: No Apparent Distress, WD/WN HEENT: PERRL/EOMI, Pharynx Normal Neck: Non Tender, Supple Respiratory: Lungs Clear, Normal Breath Sounds Cardiovascular: Regular Rate, Rhythm, No Murmur Gastrointestinal: Soft, No Distended, No Guarding, No Rebound, Tenderness ( left lateral aspect) Back: No Vertebral Tenderness, CVA Tenderness (L), No CVA Tenderness (R), No Muscle Spasm, No Vertebral Tenderness Extremity: Normal Range of Motion, Non Tender Neurologic/Psychiatric: Alert, Oriented x3 Skin: Normal Color, Warm/Dry Progress/Results/Core Measures Suspected Sepsis SIRS Temperature: Pulse: Respiratory Rate: Laboratory Tests 09/08/17 08:44: White Blood Count 8.0 Blood Pressure / Mean: Laboratory Tests 09/08/17 08:44: Creatinine 0.93, Platelet Count 264, Total Bilirubin 0.3 Results/Orders Lab Results Laboratory Tests Test 09/08/17 08:37 09/08/17 08:44 Range/Units Urine Color YELLOW Urine Clarity CLEAR Urine pH 6.5 5-9 Urine Specific [place] 1.010 L 1.016-1.022 Urine Protein NEGATIVE NEGATIVE Urine Glucose (UA) NEGATIVE NEGATIVE Urine Ketones NEGATIVE NEGATIVE Urine Nitrite NEGATIVE NEGATIVE Urine Bilirubin NEGATIVE NEGATIVE Urine Urobilinogen NORMAL NORMAL MG/DL Urine Leukocyte Esterase NEGATIVE NEGATIVE Urine RBC (Auto) 3+ H NEGATIVE Urine RBC 0-2 /HPF Urine WBC NONE /HPF Urine Squamous Epithelial Cells NONE /HPF Urine Crystals NONE /LPF Urine Bacteria NEGATIVE /HPF Urine Casts NONE /LPF Urine Mucus NEGATIVE /LPF Urine Culture Indicated NO White Blood Count 8.0 4.3-11.0 10^3/uL Red Blood Count 5.02 4.35-5.85 10^6/uL Hemoglobin 15.7 13.3-17.7 G/DL Hematocrit 46 40-54 % Mean Corpuscular Volume 91 80-99 FL Mean Corpuscular Hemoglobin 31 25-34 PG Mean Corpuscular Hemoglobin Concent 34 32-36 G/DL Red Cell Distribution Width 13.5 10.0-14.5 % Platelet Count 264 130-400 10^3/uL Mean Platelet Volume 8.6 7.4-10.4 FL Neutrophils (%) (Auto) 65 42-75 % Lymphocytes (%) (Auto) 26 12-44 % Monocytes (%) (Auto) 7 0-12 % Eosinophils (%) (Auto) 2 0-10 % Basophils (%) (Auto) 0 0-10 % Neutrophils # (Auto) 5.2 1.8-7.8 X 10^3 Lymphocytes # (Auto) 2.1 1.0-4.0 X 10^3 Monocytes # (Auto) 0.5 0.0-1.0 X 10^3 Eosinophils # (Auto) 0.1 0.0-0.3 10^3/uL Basophils # (Auto) 0.0 0.0-0.1 10^3/uL Sodium Level 138 135-145 MMOL/L Potassium Level 3.8 3.6-5.0 MMOL/L Chloride Level 103 98-107 MMOL/L Carbon Dioxide Level 23 21-32 MMOL/L Anion Gap 12 5-14 MMOL/L Blood Urea Nitrogen 9 7-18 MG/DL Creatinine 0.93 0.60-1.30 MG/DL Estimat Glomerular Filtration Rate > 60 BUN/Creatinine Ratio 10 Glucose Level 134 H 70-105 MG/DL Calcium Level 9.4 8.5-10.1 MG/DL Total Bilirubin 0.3 0.1-1.0 MG/DL Aspartate Amino Transf (AST/SGOT) 21 5-34 U/L Alanine Aminotransferase (ALT/SGPT) 15 0-55 U/L Alkaline Phosphatase 62 40-136 U/L Total Protein 7.6 6.4-8.2 GM/DL Albumin 4.4 3.2-4.5 GM/DL My Orders Orders - FERNANDO ABBASI MD Cbc With Automated Diff (09/08/17 08:49) Comprehensive Metabolic Panel (09/08/17 08:49) Ua Culture If Indicated (09/08/17 08:49) Ct Abd/Pelvis Wo(Kidney Stone) (09/08/17 08:49) Fentanyl Injection (Sublimaze Injection (09/08/17 08:49) Ketorolac Injection (Toradol Injection) (09/08/17 08:49) Saline Lock/Iv-Start (09/08/17 08:49) Ns Iv 1000 Ml (Sodium Chloride 0.9%) (09/08/17 08:49) Medications Given in ED Current Medications Medications Dose Ordered Sig/Debora Route Start Time Stop Time Status Last Admin Dose Admin Sodium Chloride 1,000 ml @ 0 mls/hr Q0M ONCE IV 09/08/17 08:49 09/08/17 08:51 DC 09/08/17 09:00 1,000 MLS/HR Vital Signs/I&O Vital Sign - Last 12Hours 09/08/17 08:35 Temp 98.4 Pulse 68 Resp 18 B/P (MAP) 135/78 (97) O2 Delivery Room Air Capillary Refill : Progress Note : Progress Note Seen and evaluated. IV, labs and UA ordered. CT abdomen and pelvis kidney stone protocol ordered given the patient's colicky type pain with nausea and burning with urination. Fentanyl 50 g IV and Toradol 30 mg IV ordered. Normal saline 1 L bolus. Monitor patient. 1010: Doing a little better with respect to pain but still comes and goes. Now admits that he has had increasing knee problems and has been using his cane and this may be related to the hip and back. CT does not show any significant findings and labs are relatively normal as well. There was a few RBCs noted on UA and this could indicate potentially passed stone especially since he had burning with urination on arrival here. We will give hydrocodone 7.5 one tab by mouth now and right small prescription for hydrocodone and he will continue ibuprofen as needed. He is to follow-up with his doctor. Discharged home with return precautions. Patient verbalize understanding instructions and agreement with plan. He did talk with his cancer surgeon who he was supposed to see today and found out that his results were negative with no indication to return of his cancer in his lung. Diagnostic Imaging Diagonstic Imaging: CT Plain Films/CT/US/NM/MRI: abdomen, pelvis Comments NAME: CLARENCE KENNEDY MED REC#: [id number] PT STATUS: REG ER : 1955 PHYSICIAN: FERNANDO ABBASI MD ADMIT DATE: 09/08/17/ER Signed Date of Exam: 09/08/17 CT ABD/PELVIS WO(KIDNEY STONE) PROCEDURE: CT urinary tract, rule out kidney stone. TECHNIQUE: Multiple contiguous axial images were obtained through the abdomen and pelvis without the use of intravenous contrast. INDICATION: Left flank pain COMPARISON: 08/29/2017. FINDINGS: The lung bases are clear. The heart size is normal. The liver is normal in size without focal lesions. The gallbladder is contracted. The spleen is normal. The pancreas is grossly unremarkable although evaluation is limited without the use of intravenous contrast. There is a stent graft in the abdominal aorta. The maximal aortic sac diameter is 3.7 cm. Both kidneys are normal in appearance. There is no evidence of obstructive uropathy. Bowel gas pattern is nonspecific. There is no free air. There is no ascites. The bladder is normal. There are degenerative changes in the spine. IMPRESSION: 1. Stable appearance of the stent graft and aneurysmal sac. 2. Degenerative changes in the spine. 3. No other acute abnormality in the abdomen or pelvis. Dictated by: Dictated on workstation # [id number] Dict: 09/08/17918 Trans: 09/08/17930 Interpreted by: CHRISTIANO GALLARDO MD Electronically signed by: CHRISTIANO GALLARDO MD 09/08/17 0931 Departure Impression Impression: Primary Impression: Left flank pain Disposition: 01 HOME, SELF-CARE Condition: Improved Departure-Patient Inst. Decision time for Depature: 10:16 Referrals: KACI ASHBY MD (PCP/Family) Primary Care Physician Patient Instructions: Flank Pain (DC) Add. Discharge Instructions: Follow-up with your Dr. in a few days for recheck. You may take ibuprofen 600 mg every 8 hours as needed for pain. Take other pain medications as prescribed. Return for worse pain, fever, vomiting, weakness, breathing problems or other concerns as needed. Scripts Hydrocodone Bit/Acetaminophen (Hydrocodone/Acetaminophen 5/325mg Tablet) 1 Tab Tab 1-2 EACH PO Q6H Y for PAIN-MODERATE, #12 TAB 0 Refills Prov: FERNANDO ABBASI MD 09/08/17 Copy Copies To 1: KACI ASHBY MD, TIMOTHY D MD Sep 08, 2017 09:01
[2017-09-08 09:15] LABS: ALANINE AMINOTRANSFERASE 15 U/L (0-55); ALBUMIN 4.4 GM/DL (3.2-4.5); ALKALINE PHOSPHATASE 62 U/L (40-136); BILIRUBIN,TOTAL 0.3 MG/DL (0.1-1.0); BUN/CREATININE RATIO 10; CALCIUM 9.4 MG/DL (8.5-10.1); CARBON DIOXIDE 23 MMOL/L (21-32); CHLORIDE 103 MMOL/L (98-107); CREATININE SERUM 0.93 MG/DL (0.60-1.30); GFR ESTIMATED > 60; GLUCOSE 134 MG/DL (70-105); POTASSIUM 3.8 MMOL/L (3.6-5.0); SODIUM 138 MMOL/L (135-145); TOTAL PROTEIN 7.6 GM/DL (6.4-8.2)
[2017-09-08 09:19] LABS: BACTERIA,URINE NEGATIVE /HPF; RBC,URINE 0-2 /HPF
--- NOTE | 2017-09-08 09:26 | Diagnostic Imaging Report ---
PROCEDURE: CT urinary tract, rule out kidney stone. TECHNIQUE: Multiple contiguous axial images were obtained through the abdomen and pelvis without the use of intravenous contrast. INDICATION: Left flank pain COMPARISON: 08/29/2017. FINDINGS: The lung bases are clear. The heart size is normal. The liver is normal in size without focal lesions. The gallbladder is contracted. The spleen is normal. The pancreas is grossly unremarkable although evaluation is limited without the use of intravenous contrast. There is a stent graft in the abdominal aorta. The maximal aortic sac diameter is 3.7 cm. Both kidneys are normal in appearance. There is no evidence of obstructive uropathy. Bowel gas pattern is nonspecific. There is no free air. There is no ascites. The bladder is normal. There are degenerative changes in the spine. IMPRESSION: 1. Stable appearance of the stent graft and aneurysmal sac. 2. Degenerative changes in the spine. 3. No other acute abnormality in the abdomen or pelvis. Dictated by: Dictated on workstation # [id number]
[2017-09-08] MEDS ORDERED: HYDROcodone/APAP 7.5 MG/325 MG (LORTAB, LORCET PLUS) TABLET PO STA (10:14)
[2017-09-08] MEDS ORDERED: ACHD5005 PO (10:17)
[2017-09-08 10:33] VITALS: BP 132/82
--- OUTSIDE RECORDS SUMMARY | 2017-09-08 11:21 | XMS REPORT | Continuity of Care Document ---
Author Author [facility] Organization [facility] Address Unknown Phone Unavailable Allergies Active Description Code Type Severity Reaction Onset Reported/Identified Relationship to Patient Clinical Status Yes No Known Drug Allergies [id number] Drug Allergy Mild N/A 03/03/2009 Medications There is no data. 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 06/15/2012 Ot 433.10 CAROTID ARTERY OCCLUSION W O CEREBRAL IN 06/15/2012 Ot 473.9 CHRONIC SINUSITIS NOS 06/15/2012 Ot 599.72 MICROSCOPIC HEMATURIA 06/15/2012 Ot V04.81 ND FOR PROPHYLACTIC VACCIN AND INOCULATI 06/22/2013 SEUN ASKEW MD Ot 490 BRONCHITIS NOS 06/22/2013 SEUN ASKEW MD Ot 787.01 NAUSEA WITH VOMITING 06/12/2014 SAMIA ADAMS MD Ot 276.1 HYPOSMOLALITY 06/12/2014 SAMIA ADAMS MD Ot 486 PNEUMONIA, ORGANISM NOS 06/12/2014 BRYAN LOVE, SAMIA Barr Ot 786.52 PAINFUL RESPIRATION 01/25/2015 SHALA MORALEZ MD Ot 569.3 RECTAL ANAL HEMORRHAGE 01/25/2015 SHALA MORALEZ MD Ot 789.04 ABDOMINAL PAIN, LEFT LOWER QUADRANT 08/12/2015 DWAYNE WANG APRN Ot S52.611K DISP FX OF R ULNA STYLOID PRO, SUBS FOR 08/12/2015 DWAYNE WANG APRN Ot S62.616A DISP FX OF PROXIMAL PHALANX OF RIGHT LIT 08/12/2015 DWAYNE WANG COMMAND AND CONTROL SPECIALIST Ot W22.8XXA STRIKING AGAINST OR STRUCK BY OTHER OBJE 08/12/2015 DWAYNE WANG COMMAND AND CONTROL SPECIALIST Ot Y92.[address] 08/12/2015 DWAYNE WANG COMMAND AND CONTROL SPECIALIST Ot Y99.8 OTHER EXTERNAL CAUSE STATUS 04/09/2016 DWAYNE WANG COMMAND AND CONTROL SPECIALIST Ot F17.210 NICOTINE DEPENDENCE, CIGARETTES, UNCOMPL 04/09/2016 DWAYNE WANG COMMAND AND CONTROL SPECIALIST Ot I71.4 ABDOMINAL AORTIC ANEURYSM, WITHOUT RUPTU 04/09/2016 DWAYNE WANG COMMAND AND CONTROL SPECIALIST Ot K62.5 HEMORRHAGE OF ANUS AND RECTUM 04/09/2016 DWAYNE WANG COMMAND AND CONTROL SPECIALIST Ot R10.32 LEFT LOWER QUADRANT PAIN 04/26/2016 NIDIA WILEY MD Ot F17.210 NICOTINE DEPENDENCE, CIGARETTES, UNCOMPL 04/26/2016 NIDIA WILEY MD Ot 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 04/26/2016 NIDIA WILEY MD Ot R06.02 SHORTNESS OF BREATH 04/26/2016 NIDIA WILEY MD Ot R07.89 OTHER CHEST PAIN 04/26/2016 NIDIA WILEY MD Ot R91.8 OTHER NONSPECIFIC ABNORMAL FINDING OF [place] 04/26/2016 JR CESAR Mckeon COMMAND AND CONTROL SPECIALIST Ot Z52.000 UNSPECIFIED DONOR, WHOLE BLOOD 04/26/2016 CESAR NORRIS COMMAND AND CONTROL SPECIALIST Ot Z52.000 UNSPECIFIED DONOR, WHOLE BLOOD 04/27/2016 AZAR LOVE, SEUN A Ot 490 BRONCHITIS NOS 04/27/2016 AZAR LOVE, SEUN A Ot 787.01 NAUSEA WITH VOMITING 05/04/2016 CESAR NORRIS COMMAND AND CONTROL SPECIALIST Ot Z52.000 UNSPECIFIED DONOR, WHOLE BLOOD 05/17/2016 CESAR NORRIS COMMAND AND CONTROL SPECIALIST Ot Z52.000 UNSPECIFIED DONOR, WHOLE BLOOD 05/17/2016 CESAR NORRIS COMMAND AND CONTROL SPECIALIST Ot Z52.000 UNSPECIFIED DONOR, WHOLE BLOOD 07/20/2016 CESAR NORRIS COMMAND AND CONTROL SPECIALIST Ot Z52.000 UNSPECIFIED DONOR, WHOLE BLOOD 07/21/2016 KACI ASHBY MD Ot I10 ESSENTIAL (PRIMARY) HYPERTENSION 07/21/2016 KACI ASHBY MD Ot I71.4 ABDOMINAL AORTIC ANEURYSM, WITHOUT RUPTU 07/21/2016 KACI ASHBY MD Ot R91.1 SOLITARY PULMONARY NODULE 08/12/2016 KACI ASHBY MD Ot I10 ESSENTIAL (PRIMARY) HYPERTENSION 08/12/2016 KACI ASHBY MD Ot I71.4 ABDOMINAL AORTIC ANEURYSM, WITHOUT RUPTU 08/12/2016 KACI ASHBY MD Ot R91.1 SOLITARY PULMONARY NODULE 01/04/2017 CESAR NORRIS COMMAND AND CONTROL SPECIALIST Ot Z52.000 UNSPECIFIED DONOR, WHOLE BLOOD 01/04/2017 KACI ASHBY MD Ot I10 ESSENTIAL (PRIMARY) HYPERTENSION 01/04/2017 KACI ASHBY MD Ot I71.4 ABDOMINAL AORTIC ANEURYSM, WITHOUT RUPTU 01/04/2017 KACI ASHBY MD Ot R91.1 SOLITARY PULMONARY NODULE 01/04/2017 EDGAR PHILLIPS MD Ot F17.210 NICOTINE DEPENDENCE, CIGARETTES, UNCOMPL 01/04/2017 EDGAR PHILLIPS MD, Ot I10 ESSENTIAL (PRIMARY) HYPERTENSION 01/04/2017 EDGAR PHILLIPS MD Ot J44.9 CHRONIC OBSTRUCTIVE PULMONARY DISEASE, U 01/04/2017 EDGAR PHILLIPS MD Ot K51.90 ULCERATIVE COLITIS, UNSPECIFIED, WITHOUT 01/04/2017 EDGAR PHILLIPS MD Ot K55.9 VASCULAR DISORDER OF INTESTINE, UNSPECIF 01/04/2017 EDGAR PHILLIPS MD Ot K64.8 OTHER HEMORRHOIDS 01/04/2017 EDGAR PHILLIPS MD Ot K92.1 MELENA 01/04/2017 EDGAR PHILLIPS MD Ot R91.1 SOLITARY PULMONARY NODULE 01/04/2017 EDGAR PHILLIPS MD Ot Z85.118 PERSONAL HISTORY OF MALIGNANT NEOPLASM O 01/27/2017 PABLO MARIE DO Ot K92.2 GASTROINTESTINAL HEMORRHAGE, UNSPECIFIED 01/27/2017 PABLO MARIE DO Ot Z01.818 ENCOUNTER FOR OTHER PREPROCEDURAL EXAMIN 01/27/2017 PABLO MARIE DO Ot K92.2 GASTROINTESTINAL HEMORRHAGE, UNSPECIFIED 01/27/2017 PABLO MARIE DO Ot Z01.818 ENCOUNTER FOR OTHER PREPROCEDURAL EXAMIN 01/28/2017 JEREMY CARLSON MD Ot F17.210 NICOTINE DEPENDENCE, CIGARETTES, UNCOMPL 01/28/2017 JEREMY CARLSON MD Ot J18.9 PNEUMONIA, UNSPECIFIED ORGANISM 01/28/2017 JEREMY CARLSON MD Ot R06.02 SHORTNESS OF BREATH 01/28/2017 JEREMY CARLSON MD Ot Z85.118 PERSONAL HISTORY OF MALIGNANT NEOPLASM O 01/28/2017 JEREMY CARLSON MD Ot Z86.79 PERSONAL HISTORY OF OTHER DISEASES OF 01/28/2017 JEREMY CARLSON MD Ot Z87.19 PERSONAL HISTORY OF OTHER DISEASES OF 01/28/2017 JEREMY CARLSON MD Ot Z90.2 ACQUIRED ABSENCE OF LUNG [PART OF] 01/28/2017 JEREMY CARLSON MD Ot Z90.89 ACQUIRED ABSENCE OF OTHER ORGANS 02/19/2017 JEREMY CARLSON MD Ot F17.210 NICOTINE DEPENDENCE, CIGARETTES, UNCOMPL 02/19/2017 JEREMY CARLSON MD Ot J18.9 PNEUMONIA, UNSPECIFIED ORGANISM 02/19/2017 JEREMY CARLSON MD Ot R06.02 SHORTNESS OF BREATH 02/19/2017 JEREMY CARLSON MD Ot Z85.118 PERSONAL HISTORY OF MALIGNANT NEOPLASM O 02/19/2017 JEREMY CARLSON MD Ot Z86.79 PERSONAL HISTORY OF OTHER DISEASES OF 02/19/2017 JEREMY CARLSON MD Ot Z87.19 PERSONAL HISTORY OF OTHER DISEASES OF 02/19/2017 JEREMY CARLSON MD Ot Z90.2 ACQUIRED ABSENCE OF LUNG [PART OF] 02/19/2017 JEREMY CARLSON MD Ot Z90.89 ACQUIRED ABSENCE OF OTHER ORGANS 03/02/2017 SAMIA ADAMS MD Ot F17.210 NICOTINE DEPENDENCE, CIGARETTES, UNCOMPL 03/02/2017 SAMIA ADAMS MD Ot S30.862A INSECT BITE (NONVENOMOUS) OF PENIS, INIT 03/02/2017 SAMIA ADAMS MD Ot W57.XXXA BIT/STUNG BY NONVENOM INSECT OTH NONVE 03/02/2017 SAMIA ADAMS MD Ot Z85.118 PERSONAL HISTORY OF MALIGNANT NEOPLASM O 03/02/2017 SAMIA ADAMS MD Ot Z90.89 ACQUIRED ABSENCE OF OTHER ORGANS 03/02/2017 CESAR NORRIS APRN Ot Z52.000 UNSPECIFIED DONOR, WHOLE BLOOD 03/02/2017 KACI ASHBY MD, Ot I10 ESSENTIAL (PRIMARY) HYPERTENSION 03/02/2017 KACI ASHBY MD Ot I71.4 ABDOMINAL AORTIC ANEURYSM, WITHOUT RUPTU 03/02/2017 KACI ASHBY MD Ot R91.1 SOLITARY PULMONARY NODULE 03/03/2017 SAMIA ADAMS MD, Ot F17.210 NICOTINE DEPENDENCE, CIGARETTES, UNCOMPL 03/03/2017 SAMIA ADAMS MD Ot S30.862A INSECT BITE (NONVENOMOUS) OF PENIS, INIT 03/03/2017 SAMIA ADAMS MD Ot W57.XXXA BIT/STUNG BY NONVENOM INSECT OTH NONVE 03/03/2017 SAMIA ADAMS MD Ot Z85.118 PERSONAL HISTORY OF MALIGNANT NEOPLASM O 03/03/2017 SAMIA ADAMS MD Ot Z90.89 ACQUIRED ABSENCE OF OTHER ORGANS 03/06/2017 SAMIA ADAMS MD Ot F17.210 NICOTINE DEPENDENCE, CIGARETTES, UNCOMPL 03/06/2017 SAMIA ADAMS MD Ot S30.862A INSECT BITE (NONVENOMOUS) OF PENIS, INIT 03/06/2017 SAMIA ADAMS MD Ot W57.XXXA BIT/STUNG BY NONVENOM INSECT OTH NONVE 03/06/2017 SAMIA ADAMS MD Ot Z85.118 PERSONAL HISTORY OF MALIGNANT NEOPLASM O 03/06/2017 SAMIA ADAMS MD Ot Z90.89 ACQUIRED ABSENCE OF OTHER ORGANS 08/29/2017 CARLOS ODOM DO Ot C34.2 MALIGNANT NEOPLASM OF [place], [facility] 08/29/2017 CARLOS ODOM DO Ot C34.2 MALIGNANT NEOPLASM OF [place], [facility] 08/31/2017 JED DO GARRETT K Ot F17.210 NICOTINE DEPENDENCE, CIGARETTES, UNCOMPL 08/31/2017 JED DO GARRETT K Ot I10 ESSENTIAL (PRIMARY) HYPERTENSION 08/31/2017 JED DO GARRETT K Ot R10.31 RIGHT LOWER QUADRANT PAIN 08/31/2017 JED DO GARRETT K Ot R31.21 ASYMPTOMATIC MICROSCOPIC HEMATURIA 08/31/2017 JED DO, GARRETT K Ot Z85.118 PERSONAL HISTORY OF MALIGNANT NEOPLASM O 08/31/2017 GARRETT ADKINS DO, Ot Z86.79 PERSONAL HISTORY OF OTHER DISEASES OF TH 08/31/2017 GARRETT ADKINS DO, Ot Z87.19 PERSONAL HISTORY OF OTHER DISEASES OF TH 08/31/2017 GARRETT ADKINS DO, Ot Z90.2 ACQUIRED ABSENCE OF LUNG [PART OF] 08/31/2017 GARRETT ADKINS DO, Ot Z90.89 ACQUIRED ABSENCE OF OTHER ORGANS 08/31/2017 GARRETT ADKINS DO Ot Z98.890 OTHER SPECIFIED POSTPROCEDURAL STATES Procedures There is no data. Results Test Result Range Complete blood count (CBC) with automated white blood cell (WBC) differential - 04/09/16 10:08 Blood leukocytes automated count (number/volume) 7.5 10*3/uL 4.3-11.0 Blood erythrocytes automated count (number/volume) 4.84 10*6/uL 4.35-5.85 Venous blood hemoglobin measurement (mass/volume) 14.9 g/dL 13.3-17.7 Blood hematocrit (volume fraction) 44 % 40-54 Automated erythrocyte mean corpuscular volume 91 [foz_us] 80-99 Automated erythrocyte mean corpuscular hemoglobin (mass per erythrocyte) 31 pg 25-34 Automated erythrocyte mean corpuscular hemoglobin concentration measurement ( mass/volume) 34 g/dL 32-36 Automated erythrocyte distribution width ratio 13.0 % 10.0-14.5 Automated blood platelet count (count/volume) 295 10*3/uL 130-400 Automated blood platelet mean volume measurement 8.7 [foz_us] 7.4-10.4 Automated blood neutrophils/100 leukocytes 56 % 42-75 Automated blood lymphocytes/100 leukocytes 34 % 12-44 Blood monocytes/100 leukocytes 7 % 0-12 Automated blood eosinophils/100 leukocytes 3 % 0-10 Automated blood basophils/100 leukocytes 1 % 0-10 Blood neutrophils automated count (number/volume) 4.1 10*3 1.8-7.8 Blood lymphocytes automated count (number/volume) 2.6 10*3 1.0-4.0 Blood monocytes automated count (number/volume) 0.5 10*3 0.0-1.0 Automated eosinophil count 0.2 10*3/uL 0.0-0.3 Automated blood basophil count (count/volume) 0.1 10*3/uL 0.0-0.1 Comprehensive metabolic panel - 04/09/16 10:08 Serum or plasma sodium measurement (moles/volume) 137 mmol/L 135-145 Serum or plasma potassium measurement (moles/volume) 4.2 mmol/L 3.6-5.0 Serum or plasma chloride measurement (moles/volume) 104 mmol/L 98-107 Carbon dioxide 24 mmol/L 21-32 Serum or plasma anion gap determination (moles/volume) 9 mmol/L 5-14 Serum or plasma urea nitrogen measurement (mass/volume) 11 mg/dL 7-18 Serum or plasma creatinine measurement (mass/volume) 0.83 mg/dL 0.60-1.30 Serum or plasma urea nitrogen/creatinine mass ratio 13 NRG Serum or plasma creatinine measurement with calculation of estimated glomerular filtration rate > NRG Serum or plasma glucose measurement (mass/volume) 83 mg/dL 70-105 Serum or plasma calcium measurement (mass/volume) 8.9 mg/dL 8.5-10.1 Serum or plasma total bilirubin measurement (mass/volume) 0.4 mg/dL 0.1-1.0 Serum or plasma alkaline phosphatase measurement (enzymatic activity/volume) 72 U/L 40-136 Serum or plasma aspartate aminotransferase measurement (enzymatic activity/ volume) 22 U/L 5-34 Serum or plasma alanine aminotransferase measurement (enzymatic activity/volume ) 16 U/L 0-55 Serum or plasma protein measurement (mass/volume) 7.4 g/dL 6.4-8.2 Serum or plasma albumin measurement (mass/volume) 4.4 g/dL 3.2-4.5 Fibrin D-dimer FEU measurement in platelet poor plasma (mass/volume) - 10:08 Fibrin D-dimer FEU measurement in platelet poor plasma (mass/volume) 0.85 ug/mL 0.00-0.49 Complete urinalysis with reflex to culture - 04/09/16 10:37 Urine color determination YELLOW NRG Urine clarity determination CLEAR NRG Urine pH measurement by test strip 6 5-9 Specific gravity of urine by test strip 1.005 1.016- 1.022 Urine protein assay by test strip, semi-quantitative NEGATIVE NEGATIVE Urine glucose detection by automated test strip NEGATIVE NEGATIVE Erythrocytes detection in urine sediment by light microscopy 3+ NEGATIVE Urine ketones detection by automated test strip NEGATIVE NEGATIVE Urine nitrite detection by test strip NEGATIVE NEGATIVE Urine total bilirubin detection by test strip NEGATIVE NEGATIVE Urine urobilinogen measurement by automated test strip (mass/volume) NORMAL NORMAL Urine leukocyte esterase detection by dipstick NEGATIVE NEGATIVE Automated urine sediment erythrocyte count by microscopy (number/high power field) NONE NRG Automated urine sediment leukocyte count by microscopy (number/high power field ) NONE NRG Bacteria detection in urine sediment by light microscopy NEGATIVE NRG Squamous epithelial cells detection in urine sediment by light microscopy RARE NRG Crystals detection in urine sediment by light microscopy NONE NRG Casts detection in urine sediment by light microscopy NONE NRG Mucus detection in urine sediment by light microscopy NEGATIVE NRG Complete urinalysis with reflex to culture NO NRG Complete blood count (CBC) with automated white blood cell (WBC) differential - 04/21/16 09:21 Blood leukocytes automated count (number/volume) 10.0 10*3/uL 4.3-11.0 Blood erythrocytes automated count (number/volume) 3.75 10*6/uL 4.35-5.85 Venous blood hemoglobin measurement (mass/volume) 11.5 g/dL 13.3-17.7 Blood hematocrit (volume fraction) 35 % 40-54 Automated erythrocyte mean corpuscular volume 93 [foz_us] 80-99 Automated erythrocyte mean corpuscular hemoglobin (mass per erythrocyte) 31 pg 25-34 Automated erythrocyte mean corpuscular hemoglobin concentration measurement ( mass/volume) 33 g/dL 32-36 Automated erythrocyte distribution width ratio 15.0 % 10.0-14.5 Automated blood platelet count (count/volume) 649 10*3/uL 130-400 Automated blood platelet mean volume measurement 7.8 [foz_us] 7.4-10.4 Automated blood neutrophils/100 leukocytes 71 % 42-75 Automated blood lymphocytes/100 leukocytes 21 % 12-44 Blood monocytes/100 leukocytes 6 % 0-12 Automated blood eosinophils/100 leukocytes 2 % 0-10 Automated blood basophils/100 leukocytes 1 % 0-10 Blood neutrophils automated count (number/volume) 7.1 10*3 1.8-7.8 Blood lymphocytes automated count (number/volume) 2.1 10*3 1.0-4.0 Blood monocytes automated count (number/volume) 0.6 10*3 0.0-1.0 Automated eosinophil count 0.2 10*3/uL 0.0-0.3 Automated blood basophil count (count/volume) 0.1 10*3/uL 0.0-0.1 Complete blood count (CBC) with automated white blood cell (WBC) differential - 04/24/16 15:50 Blood leukocytes automated count (number/volume) 9.2 10*3/uL 4.3-11.0 Blood erythrocytes automated count (number/volume) 3.94 10*6/uL 4.35-5.85 Venous blood hemoglobin measurement (mass/volume) 12.1 g/dL 13.3-17.7 Blood hematocrit (volume fraction) 37 % 40-54 Automated erythrocyte mean corpuscular volume 95 [foz_us] 80-99 Automated erythrocyte mean corpuscular hemoglobin (mass per erythrocyte) 31 pg 25-34 Automated erythrocyte mean corpuscular hemoglobin concentration measurement ( mass/volume) 32 g/dL 32-36 Automated erythrocyte distribution width ratio 15.6 % 10.0-14.5 Automated blood platelet count (count/volume) 610 10*3/uL 130-400 Automated blood platelet mean volume measurement 7.8 [foz_us] 7.4-10.4 Automated blood neutrophils/100 leukocytes 63 % 42-75 Automated blood lymphocytes/100 leukocytes 25 % 12-44 Blood monocytes/100 leukocytes 8 % 0-12 Automated blood eosinophils/100 leukocytes 3 % 0-10 Automated blood basophils/100 leukocytes 1 % 0-10 Blood neutrophils automated count (number/volume) 5.8 10*3 1.8-7.8 Blood lymphocytes automated count (number/volume) 2.3 10*3 1.0-4.0 Blood monocytes automated count (number/volume) 0.8 10*3 0.0-1.0 Automated eosinophil count 0.2 10*3/uL 0.0-0.3 Automated blood basophil count (count/volume) 0.1 10*3/uL 0.0-0.1 PT panel in platelet poor plasma by coagulation assay - 04/24/16 15:50 Prothrombin time (PT) in platelet poor plasma by coagulation assay 13.5 s 12.2-14.7 INR in platelet poor plasma or blood by coagulation assay 1.1 0.8-1.4 Comprehensive metabolic panel - 04/24/16 15:50 Serum or plasma sodium measurement (moles/volume) 139 mmol/L 135-145 Serum or plasma potassium measurement (moles/volume) 4.4 mmol/L 3.6-5.0 Serum or plasma chloride measurement (moles/volume) 103 mmol/L 98-107 Carbon dioxide 28 mmol/L 21-32 Serum or plasma anion gap determination (moles/volume) 8 mmol/L 5-14 Serum or plasma urea nitrogen measurement (mass/volume) 10 mg/dL 7-18 Serum or plasma creatinine measurement (mass/volume) 0.82 mg/dL 0.60-1.30 Serum or plasma urea nitrogen/creatinine mass ratio 12 NRG Serum or plasma creatinine measurement with calculation of estimated glomerular filtration rate > NRG Serum or plasma glucose measurement (mass/volume) 101 mg/dL 70-105 Serum or plasma calcium measurement (mass/volume) 8.9 mg/dL 8.5-10.1 Serum or plasma total bilirubin measurement (mass/volume) 0.3 mg/dL 0.1-1.0 Serum or plasma alkaline phosphatase measurement (enzymatic activity/volume) 78 U/L 40-136 Serum or plasma aspartate aminotransferase measurement (enzymatic activity/ volume) 28 U/L 5-34 Serum or plasma alanine aminotransferase measurement (enzymatic activity/volume ) 24 U/L 0-55 Serum or plasma protein measurement (mass/volume) 7.1 g/dL 6.4-8.2 Serum or plasma albumin measurement (mass/volume) 3.9 g/dL 3.2-4.5 Magnesium - 04/24/16 15:50 Magnesium 2.1 mg/dL 1.8-2.4 Serum or plasma troponin i.cardiac measurement (mass/volume) - 04/24/16 15:50 Serum or plasma troponin i.cardiac measurement (mass/volume) < ng/ mL <0.30 Myoglobin, serum - 04/24/16 15:50 Myoglobin, serum 45.5 ng/mL 10.0-92.0 Activated partial thromboplastin time (aPTT) in platelet poor plasma bycoagulation assay - 04/24/16 15:50 Activated partial thromboplastin time (aPTT) in platelet poor plasma bycoagulation assay 29 s 24-35 Serum or plasma creatine kinase measurement (enzymatic activity/volume) - 04/24 21:50 Serum or plasma creatine kinase measurement (enzymatic activity/volume) 98 U/L 30-200 Serum or plasma troponin i.cardiac measurement (mass/volume) - 04/24/16 21:50 Serum or plasma troponin i.cardiac measurement (mass/volume) < ng/ mL <0.30 Lipid 1996 panel - 04/25/16 03:41 Serum or plasma triglyceride measurement (mass/volume) 119 mg/dL <150 Serum or plasma cholesterol measurement (mass/volume) 151 mg/dL < 200 Serum or plasma cholesterol in HDL measurement (mass/volume) 45 mg/ dL 40-60 Cholesterol in LDL [mass/volume] in serum or plasma by direct assay 87 mg/dL 1-129 Serum or plasma cholesterol in VLDL measurement (mass/volume) 24 mg/ dL 5-40 Automated blood complete blood count (hemogram) panel - 04/26/16 04:25 Blood leukocytes automated count (number/volume) 8.2 10*3/uL 4.3-11.0 Blood erythrocytes automated count (number/volume) 4.20 10*6/uL 4.35-5.85 Venous blood hemoglobin measurement (mass/volume) 12.9 g/dL 13.3-17.7 Blood hematocrit (volume fraction) 40 % 40-54 Automated erythrocyte mean corpuscular volume 95 [foz_us] 80-99 Automated erythrocyte mean corpuscular hemoglobin (mass per erythrocyte) 31 pg 25-34 Automated erythrocyte mean corpuscular hemoglobin concentration measurement ( mass/volume) 33 g/dL 32-36 Automated erythrocyte distribution width ratio 15.6 % 10.0-14.5 Automated blood platelet count (count/volume) 569 10*3/uL 130-400 Automated blood platelet mean volume measurement 7.9 [foz_us] 7.4-10.4 Whole blood basic metabolic panel - 04/26/16 04:25 Serum or plasma sodium measurement (moles/volume) 139 mmol/L 135-145 Serum or plasma potassium measurement (moles/volume) 4.3 mmol/L 3.6-5.0 Serum or plasma chloride measurement (moles/volume) 101 mmol/L 98-107 Carbon dioxide 29 mmol/L 21-32 Serum or plasma anion gap determination (moles/volume) 9 mmol/L 5-14 Serum or plasma urea nitrogen measurement (mass/volume) 9 mg/dL 7-18 Serum or plasma creatinine measurement (mass/volume) 0.83 mg/dL 0.60-1.30 Serum or plasma urea nitrogen/creatinine mass ratio 11 NRG Serum or plasma creatinine measurement with calculation of estimated glomerular filtration rate > NRG Serum or plasma glucose measurement (mass/volume) 92 mg/dL 70-105 Serum or plasma calcium measurement (mass/volume) 8.9 mg/dL 8.5-10.1 Automated blood complete blood count (hemogram) panel - 07/20/16 09:15 Blood leukocytes automated count (number/volume) 8.1 10*3/uL 4.3-11.0 Blood erythrocytes automated count (number/volume) 5.62 10*6/uL 4.35-5.85 Venous blood hemoglobin measurement (mass/volume) 16.9 g/dL 13.3-17.7 Blood hematocrit (volume fraction) 50 % 40-54 Automated erythrocyte mean corpuscular volume 89 [foz_us] 80-99 Automated erythrocyte mean corpuscular hemoglobin (mass per erythrocyte) 30 pg 25-34 Automated erythrocyte mean corpuscular hemoglobin concentration measurement ( mass/volume) 34 g/dL 32-36 Automated erythrocyte distribution width ratio 13.2 % 10.0-14.5 Automated blood platelet count (count/volume) 246 10*3/uL 130-400 Automated blood platelet mean volume measurement 8.5 [foz_us] 7.4-10.4 Comprehensive metabolic panel - 07/20/16 09:15 Serum or plasma sodium measurement (moles/volume) 138 mmol/L 135-145 Serum or plasma potassium measurement (moles/volume) 4.3 mmol/L 3.6-5.0 Serum or plasma chloride measurement (moles/volume) 103 mmol/L 98-107 Carbon dioxide 25 mmol/L 21-32 Serum or plasma anion gap determination (moles/volume) 10 mmol/L 5-14 Serum or plasma urea nitrogen measurement (mass/volume) 11 mg/dL 7-18 Serum or plasma creatinine measurement (mass/volume) 0.87 mg/dL 0.60-1.30 Serum or plasma urea nitrogen/creatinine mass ratio 13 NRG Serum or plasma creatinine measurement with calculation of estimated glomerular filtration rate > NRG Serum or plasma glucose measurement (mass/volume) 92 mg/dL 70-105 Serum or plasma calcium measurement (mass/volume) 9.0 mg/dL 8.5-10.1 Serum or plasma total bilirubin measurement (mass/volume) 0.3 mg/dL 0.1-1.0 Serum or plasma alkaline phosphatase measurement (enzymatic activity/volume) 65 U/L 40-136 Serum or plasma aspartate aminotransferase measurement (enzymatic activity/ volume) 21 U/L 5-34 Serum or plasma alanine aminotransferase measurement (enzymatic activity/volume ) 13 U/L 0-55 Serum or plasma protein measurement (mass/volume) 7.6 g/dL 6.4-8.2 Serum or plasma albumin measurement (mass/volume) 4.4 g/dL 3.2-4.5 Blood type T Indirect antibody screen panel - 01/03/17 07:15 ABO+Rh group OP NRG Transfusion band number [id number] NRG Blood group antibody screen NEGATIVE NR Whole blood hemoglobin and hematocrit panel - 01/03/17 11:00 Venous blood hemoglobin measurement (mass/volume) 15.5 g/dL 13.3-17.7 Blood hematocrit (volume fraction) 47 % 40-54 Complete blood count (CBC) with automated white blood cell (WBC) differential - 01/04/17 06:15 Blood leukocytes automated count (number/volume) 7.0 10*3/uL 4.3-11.0 Blood erythrocytes automated count (number/volume) 5.52 10*6/uL 4.35-5.85 Venous blood hemoglobin measurement (mass/volume) 15.9 g/dL 13.3-17.7 Blood hematocrit (volume fraction) 49 % 40-54 Automated erythrocyte mean corpuscular volume 88 [foz_us] 80-99 Automated erythrocyte mean corpuscular hemoglobin (mass per erythrocyte) 29 pg 25-34 Automated erythrocyte mean corpuscular hemoglobin concentration measurement ( mass/volume) 33 g/dL 32-36 Automated erythrocyte distribution width ratio 13.8 % 10.0-14.5 Automated blood platelet count (count/volume) 264 10*3/uL 130-400 Automated blood platelet mean volume measurement 8.6 [foz_us] 7.4-10.4 Automated blood neutrophils/100 leukocytes 53 % 42-75 Automated blood lymphocytes/100 leukocytes 36 % 12-44 Blood monocytes/100 leukocytes 7 % 0-12 Automated blood eosinophils/100 leukocytes 3 % 0-10 Automated blood basophils/100 leukocytes 1 % 0-10 Blood neutrophils automated count (number/volume) 3.8 10*3 1.8-7.8 Blood lymphocytes automated count (number/volume) 2.5 10*3 1.0-4.0 Blood monocytes automated count (number/volume) 0.5 10*3 0.0-1.0 Automated eosinophil count 0.2 10*3/uL 0.0-0.3 Automated blood basophil count (count/volume) 0.0 10*3/uL 0.0-0.1 Comprehensive metabolic panel - 01/04/17 06:15 Serum or plasma sodium measurement (moles/volume) 137 mmol/L 135-145 Serum or plasma potassium measurement (moles/volume) 4.6 mmol/L 3.6-5.0 Serum or plasma chloride measurement (moles/volume) 104 mmol/L 98-107 Carbon dioxide 27 mmol/L 21-32 Serum or plasma anion gap determination (moles/volume) 6 mmol/L 5-14 Serum or plasma urea nitrogen measurement (mass/volume) 10 mg/dL 7-18 Serum or plasma creatinine measurement (mass/volume) 0.84 mg/dL 0.60-1.30 Serum or plasma urea nitrogen/creatinine mass ratio 12 NRG Serum or plasma creatinine measurement with calculation of estimated glomerular filtration rate > NRG Serum or plasma glucose measurement (mass/volume) 94 mg/dL 70-105 Serum or plasma calcium measurement (mass/volume) 9.0 mg/dL 8.5-10.1 Serum or plasma total bilirubin measurement (mass/volume) 0.5 mg/dL 0.1-1.0 Serum or plasma alkaline phosphatase measurement (enzymatic activity/volume) 66 U/L 40-136 Serum or plasma aspartate aminotransferase measurement (enzymatic activity/ volume) 20 U/L 5-34 Serum or plasma alanine aminotransferase measurement (enzymatic activity/volume ) 16 U/L 0-55 Serum or plasma protein measurement (mass/volume) 7.0 g/dL 6.4-8.2 Serum or plasma albumin measurement (mass/volume) 3.8 g/dL 3.2-4.5 Complete blood count (CBC) with automated white blood cell (WBC) differential - 01/28/17 05:23 Blood leukocytes automated count (number/volume) 8.5 10*3/uL 4.3-11.0 Blood erythrocytes automated count (number/volume) 5.09 10*6/uL 4.35-5.85 Venous blood hemoglobin measurement (mass/volume) 14.9 g/dL 13.3-17.7 Blood hematocrit (volume fraction) 45 % 40-54 Automated erythrocyte mean corpuscular volume 88 [foz_us] 80-99 Automated erythrocyte mean corpuscular hemoglobin (mass per erythrocyte) 29 pg 25-34 Automated erythrocyte mean corpuscular hemoglobin concentration measurement ( mass/volume) 33 g/dL 32-36 Automated erythrocyte distribution width ratio 13.9 % 10.0-14.5 Automated blood platelet count (count/volume) 288 10*3/uL 130-400 Automated blood platelet mean volume measurement 8.2 [foz_us] 7.4-10.4 Automated blood neutrophils/100 leukocytes 62 % 42-75 Automated blood lymphocytes/100 leukocytes 27 % 12-44 Blood monocytes/100 leukocytes 9 % 0-12 Automated blood eosinophils/100 leukocytes 2 % 0-10 Automated blood basophils/100 leukocytes 1 % 0-10 Blood neutrophils automated count (number/volume) 5.2 10*3 1.8-7.8 Blood lymphocytes automated count (number/volume) 2.3 10*3 1.0-4.0 Blood monocytes automated count (number/volume) 0.8 10*3 0.0-1.0 Automated eosinophil count 0.2 10*3/uL 0.0-0.3 Automated blood basophil count (count/volume) 0.1 10*3/uL 0.0-0.1 Fibrin D-dimer FEU measurement in platelet poor plasma (mass/volume) - 05:23 Fibrin D-dimer FEU measurement in platelet poor plasma (mass/volume) 1.47 ug/mL 0.00-0.49 Comprehensive metabolic panel - 01/28/17 05:23 Serum or plasma sodium measurement (moles/volume) 137 mmol/L 135-145 Serum or plasma potassium measurement (moles/volume) 4.2 mmol/L 3.6-5.0 Serum or plasma chloride measurement (moles/volume) 101 mmol/L 98-107 Carbon dioxide 26 mmol/L 21-32 Serum or plasma anion gap determination (moles/volume) 10 mmol/L 5-14 Serum or plasma urea nitrogen measurement (mass/volume) 10 mg/dL 7-18 Serum or plasma creatinine measurement (mass/volume) 0.90 mg/dL 0.60-1.30 Serum or plasma urea nitrogen/creatinine mass ratio 11 NRG Serum or plasma creatinine measurement with calculation of estimated glomerular filtration rate > NRG Serum or plasma glucose measurement (mass/volume) 100 mg/dL 70-105 Serum or plasma calcium measurement (mass/volume) 9.2 mg/dL 8.5-10.1 Serum or plasma total bilirubin measurement (mass/volume) 0.4 mg/dL 0.1-1.0 Serum or plasma alkaline phosphatase measurement (enzymatic activity/volume) 68 U/L 40-136 Serum or plasma aspartate aminotransferase measurement (enzymatic activity/ volume) 26 U/L 5-34 Serum or plasma alanine aminotransferase measurement (enzymatic activity/volume ) 15 U/L 0-55 Serum or plasma protein measurement (mass/volume) 7.3 g/dL 6.4-8.2 Serum or plasma albumin measurement (mass/volume) 4.1 g/dL 3.2-4.5 Magnesium - 01/28/17 05:23 Magnesium 1.9 mg/dL 1.8-2.4 Serum or plasma troponin i.cardiac measurement (mass/volume) - 01/28/17 05:23 Serum or plasma troponin i.cardiac measurement (mass/volume) < ng/ mL <0.30 Serum or plasma C reactive protein measurement (mass/volume) - 01/28/17 05:23 Serum or plasma C reactive protein measurement (mass/volume) 0.55 mg /dL 0.00-0.50 Serum or plasma lithium measurement (moles/volume) - 01/28/17 05:23 BNP level 16.4 pg/mL <100.0 Complete urinalysis with reflex to culture - 01/28/17 08:20 Urine color determination YELLOW NRG Urine clarity determination CLEAR NRG Urine pH measurement by test strip 7 5-9 Specific gravity of urine by test strip 1.005 1.016- 1.022 Urine protein assay by test strip, semi-quantitative NEGATIVE NEGATIVE Urine glucose detection by automated test strip NEGATIVE NEGATIVE Erythrocytes detection in urine sediment by light microscopy 4+ NEGATIVE Urine ketones detection by automated test strip NEGATIVE NEGATIVE Urine nitrite detection by test strip NEGATIVE NEGATIVE Urine total bilirubin detection by test strip NEGATIVE NEGATIVE Urine urobilinogen measurement by automated test strip (mass/volume) NORMAL NORMAL Urine leukocyte esterase detection by dipstick NEGATIVE NEGATIVE Automated urine sediment erythrocyte count by microscopy (number/high power field) [HPF] NRG Automated urine sediment leukocyte count by microscopy (number/high power field ) NONE NRG Bacteria detection in urine sediment by light microscopy NEGATIVE NRG Crystals detection in urine sediment by light microscopy NONE NRG Casts detection in urine sediment by light microscopy NONE NRG Mucus detection in urine sediment by light microscopy NEGATIVE NRG Complete urinalysis with reflex to culture NO NRG Complete blood count (CBC) with automated white blood cell (WBC) differential - 08/25/17 09:32 Blood leukocytes automated count (number/volume) 6.5 10*3/uL 4.3-11.0 Blood erythrocytes automated count (number/volume) 5.09 10*6/uL 4.35-5.85 Venous blood hemoglobin measurement (mass/volume) 15.7 g/dL 13.3-17.7 Blood hematocrit (volume fraction) 46 % 40-54 Automated erythrocyte mean corpuscular volume 91 [foz_us] 80-99 Automated erythrocyte mean corpuscular hemoglobin (mass per erythrocyte) 31 pg 25-34 Automated erythrocyte mean corpuscular hemoglobin concentration measurement ( mass/volume) 34 g/dL 32-36 Automated erythrocyte distribution width ratio 13.5 % 10.0-14.5 Automated blood platelet count (count/volume) 284 10*3/uL 130-400 Automated blood platelet mean volume measurement 8.3 [foz_us] 7.4-10.4 Automated blood neutrophils/100 leukocytes 58 % 42-75 Automated blood lymphocytes/100 leukocytes 33 % 12-44 Blood monocytes/100 leukocytes 7 % 0-12 Automated blood eosinophils/100 leukocytes 2 % 0-10 Automated blood basophils/100 leukocytes 1 % 0-10 Blood neutrophils automated count (number/volume) 3.8 10*3 1.8-7.8 Blood lymphocytes automated count (number/volume) 2.1 10*3 1.0-4.0 Blood monocytes automated count (number/volume) 0.4 10*3 0.0-1.0 Automated eosinophil count 0.1 10*3/uL 0.0-0.3 Automated blood basophil count (count/volume) 0.0 10*3/uL 0.0-0.1 Comprehensive metabolic panel - 08/25/17 09:32 Serum or plasma sodium measurement (moles/volume) 138 mmol/L 135-145 Serum or plasma potassium measurement (moles/volume) 4.2 mmol/L 3.6-5.0 Serum or plasma chloride measurement (moles/volume) 102 mmol/L 98-107 Carbon dioxide 28 mmol/L 21-32 Serum or plasma anion gap determination (moles/volume) 8 mmol/L 5-14 Serum or plasma urea nitrogen measurement (mass/volume) 13 mg/dL 7-18 Serum or plasma creatinine measurement (mass/volume) 0.81 mg/dL 0.60-1.30 Serum or plasma urea nitrogen/creatinine mass ratio 16 NRG Serum or plasma creatinine measurement with calculation of estimated glomerular filtration rate > NRG Serum or plasma glucose measurement (mass/volume) 97 mg/dL 70-105 Serum or plasma calcium measurement (mass/volume) 9.5 mg/dL 8.5-10.1 Serum or plasma total bilirubin measurement (mass/volume) 0.4 mg/dL 0.1-1.0 Serum or plasma alkaline phosphatase measurement (enzymatic activity/volume) 57 U/L 40-136 Serum or plasma aspartate aminotransferase measurement (enzymatic activity/ volume) 23 U/L 5-34 Serum or plasma alanine aminotransferase measurement (enzymatic activity/volume ) 18 U/L 0-55 Serum or plasma protein measurement (mass/volume) 7.4 g/dL 6.4-8.2 Serum or plasma albumin measurement (mass/volume) 4.4 g/dL 3.2-4.5 Complete urinalysis with reflex to culture - 08/29/17 07:50 Urine color determination YELLOW NRG Urine clarity determination CLEAR NRG Urine pH measurement by test strip 8 5-9 Specific gravity of urine by test strip 1.010 1.016- 1.022 Urine protein assay by test strip, semi-quantitative NEGATIVE NEGATIVE Urine glucose detection by automated test strip NEGATIVE NEGATIVE Erythrocytes detection in urine sediment by light microscopy 2+ NEGATIVE Urine ketones detection by automated test strip NEGATIVE NEGATIVE Urine nitrite detection by test strip NEGATIVE NEGATIVE Urine total bilirubin detection by test strip NEGATIVE NEGATIVE Urine urobilinogen measurement by automated test strip (mass/volume) NORMAL NORMAL Urine leukocyte esterase detection by dipstick NEGATIVE NEGATIVE Automated urine sediment erythrocyte count by microscopy (number/high power field) [HPF] NRG Automated urine sediment leukocyte count by microscopy (number/high power field ) NONE NRG Bacteria detection in urine sediment by light microscopy NEGATIVE NRG Crystals detection in urine sediment by light microscopy NONE NRG Casts detection in urine sediment by light microscopy NONE NRG Mucus detection in urine sediment by light microscopy NEGATIVE NRG Complete urinalysis with reflex to culture NO NRG Complete blood count (CBC) with automated white blood cell (WBC) differential - 08/29/17 08:00 Blood leukocytes automated count (number/volume) 8.4 10*3/uL 4.3-11.0 Blood erythrocytes automated count (number/volume) 5.07 10*6/uL 4.35-5.85 Venous blood hemoglobin measurement (mass/volume) 15.7 g/dL 13.3-17.7 Blood hematocrit (volume fraction) 46 % 40-54 Automated erythrocyte mean corpuscular volume 91 [foz_us] 80-99 Automated erythrocyte mean corpuscular hemoglobin (mass per erythrocyte) 31 pg 25-34 Automated erythrocyte mean corpuscular hemoglobin concentration measurement ( mass/volume) 34 g/dL 32-36 Automated erythrocyte distribution width ratio 13.6 % 10.0-14.5 Automated blood platelet count (count/volume) 288 10*3/uL 130-400 Automated blood platelet mean volume measurement 8.7 [foz_us] 7.4-10.4 Automated blood neutrophils/100 leukocytes 64 % 42-75 Automated blood lymphocytes/100 leukocytes 27 % 12-44 Blood monocytes/100 leukocytes 7 % 0-12 Automated blood eosinophils/100 leukocytes 2 % 0-10 Automated blood basophils/100 leukocytes 0 % 0-10 Blood neutrophils automated count (number/volume) 5.4 10*3 1.8-7.8 Blood lymphocytes automated count (number/volume) 2.2 10*3 1.0-4.0 Blood monocytes automated count (number/volume) 0.6 10*3 0.0-1.0 Automated eosinophil count 0.2 10*3/uL 0.0-0.3 Automated blood basophil count (count/volume) 0.0 10*3/uL 0.0-0.1 Comprehensive metabolic panel - 08/29/17 09:47 Serum or plasma sodium measurement (moles/volume) 139 mmol/L 135-145 Serum or plasma potassium measurement (moles/volume) 4.3 mmol/L 3.6-5.0 Serum or plasma chloride measurement (moles/volume) 102 mmol/L 98-107 Carbon dioxide 31 mmol/L 21-32 Serum or plasma anion gap determination (moles/volume) 6 mmol/L 5-14 Serum or plasma urea nitrogen measurement (mass/volume) 15 mg/dL 7-18 Serum or plasma creatinine measurement (mass/volume) 0.93 mg/dL 0.60-1.30 Serum or plasma urea nitrogen/creatinine mass ratio 16 NRG Serum or plasma creatinine measurement with calculation of estimated glomerular filtration rate > NRG Serum or plasma glucose measurement (mass/volume) 90 mg/dL 70-105 Serum or plasma calcium measurement (mass/volume) 9.5 mg/dL 8.5-10.1 Serum or plasma total bilirubin measurement (mass/volume) 0.5 mg/dL 0.1-1.0 Serum or plasma alkaline phosphatase measurement (enzymatic activity/volume) 63 U/L 40-136 Serum or plasma aspartate aminotransferase measurement (enzymatic activity/ volume) 26 U/L 5-34 Serum or plasma alanine aminotransferase measurement (enzymatic activity/volume ) 18 U/L 0-55 Serum or plasma protein measurement (mass/volume) 7.7 g/dL 6.4-8.2 Serum or plasma albumin measurement (mass/volume) 4.5 g/dL 3.2-4.5 Serum or plasma amylase measurement (enzymatic activity/volume) - 08/29/17 09: 47 Serum or plasma amylase measurement (enzymatic activity/volume) 89 U /L 25-125 Lipase - 08/29/17 09:47 Lipase 46 U/L 8-78 Complete urinalysis with reflex to culture - 09/08/17 08:37 Urine color determination YELLOW NRG Urine clarity determination CLEAR NRG Urine pH measurement by test strip 6.5 5-9 Specific gravity of urine by test strip 1.010 1.016- 1.022 Urine protein assay by test strip, semi-quantitative NEGATIVE NEGATIVE Urine glucose detection by automated test strip NEGATIVE NEGATIVE Erythrocytes detection in urine sediment by light microscopy 3+ NEGATIVE Urine ketones detection by automated test strip NEGATIVE NEGATIVE Urine nitrite detection by test strip NEGATIVE NEGATIVE Urine total bilirubin detection by test strip NEGATIVE NEGATIVE Urine urobilinogen measurement by automated test strip (mass/volume) NORMAL NORMAL Urine leukocyte esterase detection by dipstick NEGATIVE NEGATIVE Automated urine sediment erythrocyte count by microscopy (number/high power field) [HPF] NRG Automated urine sediment leukocyte count by microscopy (number/high power field ) NONE NRG Bacteria detection in urine sediment by light microscopy NEGATIVE NRG Squamous epithelial cells detection in urine sediment by light microscopy NONE NRG Crystals detection in urine sediment by light microscopy NONE NRG Casts detection in urine sediment by light microscopy NONE NRG Mucus detection in urine sediment by light microscopy NEGATIVE NRG Complete urinalysis with reflex to culture NO NRG Complete blood count (CBC) with automated white blood cell (WBC) differential - 09/08/17 08:44 Blood leukocytes automated count (number/volume) 8.0 10*3/uL 4.3-11.0 Blood erythrocytes automated count (number/volume) 5.02 10*6/uL 4.35-5.85 Venous blood hemoglobin measurement (mass/volume) 15.7 g/dL 13.3-17.7 Blood hematocrit (volume fraction) 46 % 40-54 Automated erythrocyte mean corpuscular volume 91 [foz_us] 80-99 Automated erythrocyte mean corpuscular hemoglobin (mass per erythrocyte) 31 pg 25-34 Automated erythrocyte mean corpuscular hemoglobin concentration measurement ( mass/volume) 34 g/dL 32-36 Automated erythrocyte distribution width ratio 13.5 % 10.0-14.5 Automated blood platelet count (count/volume) 264 10*3/uL 130-400 Automated blood platelet mean volume measurement 8.6 [foz_us] 7.4-10.4 Automated blood neutrophils/100 leukocytes 65 % 42-75 Automated blood lymphocytes/100 leukocytes 26 % 12-44 Blood monocytes/100 leukocytes 7 % 0-12 Automated blood eosinophils/100 leukocytes 2 % 0-10 Automated blood basophils/100 leukocytes 0 % 0-10 Blood neutrophils automated count (number/volume) 5.2 10*3 1.8-7.8 Blood lymphocytes automated count (number/volume) 2.1 10*3 1.0-4.0 Blood monocytes automated count (number/volume) 0.5 10*3 0.0-1.0 Automated eosinophil count 0.1 10*3/uL 0.0-0.3 Automated blood basophil count (count/volume) 0.0 10*3/uL 0.0-0.1 Comprehensive metabolic panel - 09/08/17 08:44 Serum or plasma sodium measurement (moles/volume) 138 mmol/L 135-145 Serum or plasma potassium measurement (moles/volume) 3.8 mmol/L 3.6-5.0 Serum or plasma chloride measurement (moles/volume) 103 mmol/L 98-107 Carbon dioxide 23 mmol/L 21-32 Serum or plasma anion gap determination (moles/volume) 12 mmol/L 5-14 Serum or plasma urea nitrogen measurement (mass/volume) 9 mg/dL 7-18 Serum or plasma creatinine measurement (mass/volume) 0.93 mg/dL 0.60-1.30 Serum or plasma urea nitrogen/creatinine mass ratio 10 NRG Serum or plasma creatinine measurement with calculation of estimated glomerular filtration rate > NRG Serum or plasma glucose measurement (mass/volume) 134 mg/dL 70-105 Serum or plasma calcium measurement (mass/volume) 9.4 mg/dL 8.5-10.1 Serum or plasma total bilirubin measurement (mass/volume) 0.3 mg/dL 0.1-1.0 Serum or plasma alkaline phosphatase measurement (enzymatic activity/volume) 62 U/L 40-136 Serum or plasma aspartate aminotransferase measurement (enzymatic activity/ volume) 21 U/L 5-34 Serum or plasma alanine aminotransferase measurement (enzymatic activity/volume ) 15 U/L 0-55 Serum or plasma protein measurement (mass/volume) 7.6 g/dL 6.4-8.2 Serum or plasma albumin measurement (mass/volume) 4.4 g/dL 3.2-4.5 Encounters ACCT No. Visit Date/Time Discharge Status Pt. Type Provider Facility Loc./Unit Complaint [id number] 08/29/2017 07:05:00 08/29/2017 10:13:00 DIS Outpatient GARRETT ADKINS DO [facility] ER R SIDE LEG PAIN/PREV SURGERY [id number] 08/25/2017 09:18:00 08/25/2017 23:59:59 CLS Outpatient CARLOS ODMO DO [facility] LAB C34.2 [id number] 03/02/2017 07:02:00 03/02/2017 07:21:00 DIS Emergency BRYAN LOVE, SAMIA Barr [facility] ER TICK ON [employer] [id number] 02/01/2017 11:00:00 02/01/2017 23:59:59 CLS Preadmit PABLO MARIE DO [facility] ENDO GI BLEED [id number] 01/28/2017 04:55:00 01/28/2017 10:25:00 DIS Emergency ROBYN LOVE, JEREMY S [facility] ER SOB,COUGH [id number] 01/27/2017 05:46:00 01/27/2017 14:06:00 DIS Outpatient PABLO MARIE DO [facility] PREOP GI BLEED [id number] 01/05/2017 10:45:00 01/05/2017 23:59:59 CLS Preadmit CAMILO EDWARDS ABSTRACT MANAGER [facility] RAD AAA REPAIR [id number] 01/03/2017 09:33:00 01/04/2017 12:25:00 DIS Inpatient JACQUELINE LOVE, EDGAR Rucker [facility] 4TH LOWER GI BLEED,LLQ ABD PAIN [id number] 07/20/2016 08:53:00 07/20/2016 23:59:59 CLS Outpatient KACI ASHBY MD [facility] RAD ABDOMINAL AORTIC ANEURYSM [id number] 04/24/2016 19:11:00 04/26/2016 12:50:00 DIS Inpatient SAURABH LOVE, NIDIA Masters [facility] ICU CHEST PAIN [id number] 04/21/2016 09:03:00 04/21/2016 23:59:59 CLS Outpatient CESAR NORRIS APRN [facility] LAB POST BLOOD TRANSFUSION [id number] 04/09/2016 09:20:00 04/09/2016 12:45:00 DIS Emergency DWAYNE WANG [employer] SPECIALIST [facility] ER ABD PAIN/RECTAL BLEEDING [id number] 08/12/2015 13:02:00 08/12/2015 14:54:00 DIS Emergency DWAYNE WANG [employer] SPECIALIST [facility] ER RIGHT HAND INJURY [id number] 01/25/2015 09:50:00 01/25/2015 12:39:00 DIS Emergency KIRT LOVE, SHALA Hernandez [facility] ER RECTAL BLEEDING [id number] 06/12/2014 16:45:00 06/12/2014 23:59:59 CLS Emergency BRYAN LOVE, SAMIA Barr [facility] ER CHEST WALL PAIN,COUGH, SOA [id number] 06/22/2013 03:40:00 06/22/2013 04:59:00 DIS Emergency SEUN ASKEW MD [facility] ER VOMITING [id number] 09/08/2017 08:59:00 Document Registration [id number] 01/25/2015 09:50:00 Document Registration [id number] 08/21/2011 01:37:00 Document Registration [id number] 04/25/2010 08:20:00 Document Registration [id number] 07/25/2017 14:40:00 07/25/2017 23:59:59 CLS Outpatient KACI ASHBY [facility] [place]
== END 2017-09-08 10:36 | disposition home or self-care (01) ==
LOC: EDUNIT# 08:29 → ER 08:31
DX: R10.32 Left lower quadrant pain (principal); I10 Essential (primary) hypertension; F17.210 Nicotine dependence, cigarettes, uncomplicated; Z90.89 Acquired absence of other organs; Z80.1 Family history of malignant neoplasm of trachea, bronchus and lung; Z87.19 Personal history of other diseases of the digestive system; Z90.2 Acquired absence of lung [part of]
CPT/HCPCS: 36415; 74176; 80053; 81000; 85025; 96361; 96374; 96375

== ENCOUNTER 2017-09-15 07:50 | Emergency (ER) | payer SELFPAY ==
[~2017-09-15] VITALS: Ht 185.4 cm; Wt 77.6 kg
[~2017-09-15 07:50] MED LIST changes: +ACHD5005 PO
[2017-09-15] MEDS ORDERED: TIZANIDINE PO (08:43)
--- NOTE | 2017-09-15 09:36 | ED GI ---
General Chief Complaint: Rect Problems Stated Complaint: HEMMORHOID BLEEDING Nursing Triage Note: ARRIVED VIA AMB TO ROOM 05. COMPLAINS OF HEMMORHOID BLEEDING STARTING YESTERDAY. Sepsis Screen: No Definite Risk Source of Information: Patient Exam Limitations: No Limitations History of Present Illness Date Seen by Provider: Sep 15, 2017 Time Seen by Provider: 07:52 Initial Comments This 62-year-old gentleman presents by private vehicle to the emergency room with complaints of bleeding and pain with hemorrhoids. He reports having to strain for a bowel movement and having thin caliber stools. Symptoms have been present for about 6 months but have worsened. He reports using blood at this point. He had a colonoscopy about 10 years ago but has had no endoscopy since then. He reports recently having a lung cancer resection and a AAA repair. His hemorrhoids have not been addressed because these other issues have taken priority. He has not been using any medications for the hemorrhoids. Allergies and Home Medications Allergies Coded Allergies: No Known Drug Allergies (Unverified , 03/03/09) Home Medications Hydrocodone Bit/Acetaminophen 1 Tab Tab, 1-2 EACH PO Q6H PRN for PAIN-MODERATE Prescribed by: FERNANDO ABBASI on 09/08/17 1017 Hydrocortisone/Pramoxine 10 Gm Foam, 10 GM RC QID PRN for HEMORRHOIDS Prescribed by: SAMIA GTZ on 09/15/17 0937 Tramadol HCl 50 Mg Tablet, 50 MG PO Q4H Prescribed by: GARRETT ADKINS on 08/29/17 0945 [Tizanidine] , 4 MG PO BID, (Reported) Patient Home Medication List Home Medication List Reviewed: Yes Review of Systems Constitutional: no symptoms reported EENTM: No Symptoms Reported Respiratory: No Symptoms Reported Cardiovascular: No Symptoms Reported Gastrointestinal: See HPI Genitourinary: No Symptoms Reported Skin: no symptoms reported Psychiatric/Neurological: No Symptoms Reported Endocrine: No Symptoms Reported Past Kwizbze-Afjgej-Ubluqp Hx Patient Social History Alcohol Use: Denies Use Recreational Drug Use: No Smoking Status: Current Everyday Smoker Type Used: Cigarettes 2nd Hand Smoke Exposure: Yes Recent Foreign Travel: No Contact w/Someone Who Travel: No Recent Infectious Disease Expo: No Recent Hopitalizations: No Immunizations Up To Date Tetanus Booster (TDap): More than 5yrs PED Vaccines UTD: No Date of Pneumonia Vaccine: Apr 06, 2014 Date of Influenza Vaccine: Jun 14, 2012 Seasonal Allergies Seasonal Allergies: Yes Past Medical History Surgeries: Yes Abdominal, Lobectomy, Orthopedic, Tonsillectomy, Vascular Surgery Respiratory: Yes (lung cancer removed,--RML ) Currently Using CPAP: No Currently Using BIPAP: No Cardiac: Yes (AAA REPAIRED) Aneurysm, Hypertension Neurological: No Reproductive Disorders: No Sexually Transmitted Disease: No Genitourinary: No Gastrointestinal: Yes Gastrointestinal Bleed Musculoskeletal: Yes (CHRONIC BACK PAIN, CHRONIC RIGHT KNEE PAIN ) Arthritis, Chronic Back Pain Endocrine: No HEENT: Yes (has glasses cant see small print MISSING TEETH) Hearing Impairment: Denies Cancer: Yes Lung Did You Recieve Any Treatments: Yes What Type of Treatment Did You: Surgical Intervention Psychosocial: No Integumentary: No Blood Disorders: No Adverse Reaction/Blood Tranf: No Family Medical History Osteoporosis Respiratory disorder No Pertinent Family Hx Physical Exam Vital Signs Vital Signs - First Documented 09/15/17 08:36 Temp 98.0 Pulse 74 Resp 16 B/P (MAP) 124/85 (98) Pulse Ox 91 O2 Delivery Room Air Capillary Refill : Less Than 3 Seconds General Appearance: WD/WN, no apparent distress HEENT: PERRL/EOMI, normal ENT inspection Neck: normal inspection Respiratory: lungs clear, normal breath sounds, no respiratory distress, no accessory muscle use Cardiovascular: regular rate, rhythm, no edema, no murmur Gastrointestinal: normal bowel sounds, non tender, soft Rectal: normal rectal tone, hemorrhoids, tenderness, other (multiple external hemorrhoids. One of the smaller hemorrhoids is purplish in appearance and may have some thrombosis. There is scant amount of blood around the anus. No internal hemorrhoids or masses were palpated on digital rectal exam. There was no active bleeding.) Extremities: normal inspection, no pedal edema Neurologic/Psychiatric: long term care phlebotomist II-XII nml as tested, no motor/sensory deficits, alert, normal mood/affect, oriented x 3 Skin: normal color, warm/dry Progress/Results/Core Measures Vital Signs/I&O 09/15/17 09/15/17 08:36 09:46 Temp 98.0 98.0 Pulse 74 74 Resp 16 16 B/P (MAP) 124/85 (98) 124/85 (98) Pulse Ox 91 91 O2 Delivery Room Air Blood Pressure Mean: 98 Departure Impression Primary Impression: External hemorrhoids Additional Impression: Change in stool caliber Disposition: 01 HOME, SELF-CARE Condition: Stable Departure-Patient Inst. Decision time for Depature: 09:34 Referrals: KACI ASHBY MD (PCP/Family) Primary Care Physician Patient Instructions: Hemorrhoids (DC) Add. Discharge Instructions: See a surgeon as soon as possible. You should have your hemorrhoids assessed by a surgeon and have a colonoscopy to evaluate your stool changes. Drink plenty of water. You may keep your stools soft with a stool softener such as Colace once or twice daily. This should help reduce your hemorrhoid burden and keep your bowels moving. Return to care if you have worsening symptoms. Follow-up with your primary care provider for a checkup as soon as possible. Use the hemorrhoid medication as prescribed. All discharge instructions reviewed with patient and/or family. Voiced understanding. Scripts Hydrocortisone/Pramoxine (Proctofoam-Hc 1%-1% Foam) 10 Gm Foam 10 GM RC QID PRN for HEMORRHOIDS, #30 GM Prov: SAMIA ADAMS MD 09/15/17 Copy Copies To 1: KACI ASHBY MD, JOSHUA T MD Sep 15, 2017 09:36
[2017-09-15] MEDS ORDERED: HCPR10FM RC (09:37)
[2017-09-15 09:46] VITALS: BP 124/85
--- OUTSIDE RECORDS SUMMARY | 2017-09-15 12:55 | XMS REPORT ---
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 Active 712692536 Problem Essential hypertension I10 Active 26659190 Problem Abdominal aortic aneurysm (AAA) without rupture I71.4 Active 70033385 ALLERGIES No Information ENCOUNTERS Encounter Location Date Diagnosis [place] [id number] [place] [address]173 Jul, Acute pain of right knee M25.561 [place] [address] [place] [address] 93826- 9340 Jan, Essential hypertension I10 [place] [address] [place] [address] 16318- 2921 Jan, Abdominal aortic aneurysm (AAA) without rupture I71.4 ; Essential hypertension I10 ; Mass of left axilla R22.32 ; Squamous cell lung cancer, right C34.91 and Bleeding external hemorrhoids K64.4 [facility] [address] [id number] [place] [id number] Jan, [place] [address] [place] [id number] [place] [address] 32592- 3739 Dec, [place] [address] [place] [id number] [place] [address] 18985- 4585 Dec, Essential hypertension I10 [place] [address] [place] [id number] [place] [address] 66994- 0417 Sep, Malignant neoplasm of right lung, unspecified part of lung C34.91 ; Incisional pain R20.8 and Tobacco use Z72.0 [place] [address] [place] [id number] [place] [address] 85313- 3805 Aug, Low back pain M54.5 [facility] [address] [place] [id number] [place] [address] 43726- 7506 Jul, [facility] [address] [place] [id number] [place] [address] 90279- 2867 Jul, Low back pain M54.5 [facility] [address] [place] [id number] [place] [address] 53536- 9611 Jul, Essential hypertension I10 ; Abdominal aortic aneurysm (AAA ) without rupture I71.4 and Pulmonary nodule R91.1 [place] [address] [place] [id number] [place] [address] 53429- 7995 Jun, Low back pain M54.5 [facility] [address] [place] [id number] [place] [address] 39340- 9344 Jun, History of AAA (abdominal aortic aneurysm) repair Z98.890 ; Essential hypertension I10 ; Tobacco use Z72.0 ; Low back pain M54.5 and Other chronic pain G89.29 [place] [address] [place] [address] 49017- 4118 May, Low back pain M54.5 ; Other chronic pain G89.29 ; Pulmonary nodule R91.1 ; Abdominal aortic aneurysm (AAA) without rupture I71.4 and Essential hypertension I10 [place] [address] [address] Apr, [place] [address] [place] [id number] [place] [address] 91844- 1522 Sep, [place] [address] [place] [address] 48496- 2808 Sep, [facility] [address] [place] [id number] [id number] Jul, [facility] [address] [facility] [id number], [place] [address] Jul, [facility] [address] [facility] [id number], [place] [address] Jun, [facility] [address] [facility] [id number], [place] [address] Jun, [facility] [address] [place] [id number] [address] Jun, [facility] [address] [facility] [id number], [place] [address] Jun, IMMUNIZATIONS No Known Immunizations SOCIAL HISTORY Never Assessed REASON FOR VISIT medication concerns PLAN OF CARE VITAL SIGNS MEDICATIONS No Known Medications RESULTS No Results PROCEDURES No Known procedures INSTRUCTIONS MEDICATIONS ADMINISTERED No Known Medications MEDICAL (GENERAL) HISTORY Type Description Date Medical History 04/09/2016 Aortic aneurysm Medical History lung nodule Surgical History aortic aneurysm repair 04/2016 Surgical History hernia repair x2 Surgical History lung resection, right 09/2016 Hospitalization History Life flighted from [facility] to [facility] for aortic aneurysm 04/2016 Hospitalization History Trauma - hospitalized x 1 month 1971 Hospitalization History Hematochezia, lung CA, HTN-[facility] 01/03/17
--- OUTSIDE RECORDS SUMMARY | 2017-09-15 12:56 | XMS REPORT | Continuity of Care Document ---
Author Author [facility] Organization [facility] Address Unknown Phone Unavailable Allergies Active Description Code Type Severity Reaction Onset Reported/Identified Relationship to Patient Clinical Status Yes No Known Drug Allergies [id number] Drug Allergy Mild N/A 03/03/2009 Medications There [...] MD Ot 787.01 NAUSEA WITH VOMITING 06/12/2014 SAMAI ADAMS MD Ot 276.1 HYPOSMOLALITY 06/12/2014 SAMIA [...] PHALANX OF RIGHT LIT 08/12/2015 DWAYNE WANG SPIRITUAL CARE COORDINATOR Ot W22.8XXA STRIKING AGAINST OR STRUCK BY OTHER OBJE 08/12/2015 DWAYNE WANG SPIRITUAL CARE COORDINATOR Ot Y92.[address] 08/12/2015 DWAYNE WANG SPIRITUAL CARE COORDINATOR Ot Y99.8 OTHER EXTERNAL CAUSE STATUS 04/09/2016 DWAYNE WANG SPIRITUAL CARE COORDINATOR Ot F17.210 NICOTINE DEPENDENCE, CIGARETTES, UNCOMPL 04/09/2016 DWAYNE WANG SPIRITUAL CARE COORDINATOR Ot I71.4 ABDOMINAL AORTIC ANEURYSM, WITHOUT RUPTU 04/09/2016 DWAYNE WANG SPIRITUAL CARE COORDINATOR Ot K62.5 HEMORRHAGE OF ANUS AND RECTUM 04/09/2016 DWAYNE WANG SPIRITUAL CARE COORDINATOR Ot R10.32 LEFT LOWER QUADRANT PAIN 04/26/2016 [...] FINDING OF HARSHA 04/26/2016 JR CESAR Mckeon SPIRITUAL CARE COORDINATOR Ot Z52.000 UNSPECIFIED DONOR, WHOLE BLOOD 04/26/2016 CESAR NORRIS SPIRITUAL CARE COORDINATOR Ot Z52.000 UNSPECIFIED DONOR, WHOLE BLOOD 04/27/2016 AZAR LOVE, SEUN A Ot 490 BRONCHITIS NOS 04/27/2016 AZAR LOVE, SEUN A Ot 787.01 NAUSEA WITH VOMITING 05/04/2016 CESAR NORRIS SPIRITUAL CARE COORDINATOR Ot Z52.000 UNSPECIFIED DONOR, WHOLE BLOOD 05/17/2016 CESAR NORRIS SPIRITUAL CARE COORDINATOR Ot Z52.000 UNSPECIFIED DONOR, WHOLE BLOOD 05/17/2016 CESAR NORRIS SPIRITUAL CARE COORDINATOR Ot Z52.000 UNSPECIFIED DONOR, WHOLE BLOOD 07/20/2016 CESAR NORRIS SPIRITUAL CARE COORDINATOR Ot Z52.000 UNSPECIFIED DONOR, WHOLE BLOOD 07/21/2016 [...] R91.1 SOLITARY PULMONARY NODULE 01/04/2017 CESAR NORRIS SPIRITUAL CARE COORDINATOR Ot Z52.000 UNSPECIFIED DONOR, WHOLE BLOOD 01/04/2017 [...] DO Ot K92.2 GASTROINTESTINAL HEMORRHAGE, UNSPECIFIED 01/27/2017 PABOL MARIE DO Ot Z01.818 ENCOUNTER FOR OTHER [...] PERSONAL HISTORY OF MALIGNANT NEOPLASM O 02/19/2017 JREEMY CARLSON MD Ot Z86.79 PERSONAL HISTORY OF [...] Ot C34.2 MALIGNANT NEOPLASM OF [place], [facility] 08/29/2017 CARLOS ODOM DO Ot C34.2 MALIGNANT NEOPLASM OF [place], [facility] 08/29/2017 JED DO GARRETT K Ot F17.210 NICOTINE DEPENDENCE, CIGARETTES, UNCOMPL 08/29/2017 JED DO GARRETT K Ot I10 ESSENTIAL (PRIMARY) HYPERTENSION 08/29/2017 JED DO GARRETT K Ot R10.31 RIGHT LOWER QUADRANT PAIN 08/29/2017 JED DO GARRETT K Ot R31.21 ASYMPTOMATIC MICROSCOPIC HEMATURIA 08/29/2017 JED DO GARRETT K Ot Z85.118 PERSONAL HISTORY OF MALIGNANT NEOPLASM O 08/29/2017 CHERRY ADKINS DOA K Ot Z86.79 PERSONAL HISTORY OF OTHER DISEASES OF 08/29/2017 GARRETT ADKINS DO K Ot Z87.19 PERSONAL HISTORY OF OTHER DISEASES OF 08/29/2017 GARRETT ADKINS DO K Ot Z90.2 ACQUIRED ABSENCE OF LUNG [PART OF] 08/29/2017 CHERRY ADKINS DOA K Ot Z90.89 ACQUIRED ABSENCE OF OTHER ORGANS 08/29/2017 CHERRY ADKINS DOA K Ot Z98.890 OTHER SPECIFIED POSTPROCEDURAL STATES 08/31/2017 JED JONES, GARRETT K Ot F17.210 NICOTINE DEPENDENCE, CIGARETTES, UNCOMPL 08/31/2017 JED JONES, GARRETT K Ot I10 ESSENTIAL (PRIMARY) HYPERTENSION 08/31/2017 JED JONES, GARRETT K Ot R10.31 RIGHT LOWER QUADRANT PAIN 08/31/2017 CHERRY ADKINS DOA K Ot R31.21 ASYMPTOMATIC MICROSCOPIC HEMATURIA 08/31/2017 CHERRY ADKINS DOA K Ot Z85.118 PERSONAL HISTORY OF MALIGNANT NEOPLASM O 08/31/2017 CHERRY ADKINS DOA K Ot Z86.79 PERSONAL HISTORY OF OTHER DISEASES OF 08/31/2017 GARRETT ADKINS DO Ot Z87.19 PERSONAL HISTORY OF OTHER DISEASES OF 08/31/2017 GARRETT ADKINS DO Ot Z90.2 ACQUIRED ABSENCE OF LUNG [PART OF] 08/31/2017 CHERRY ADKINS DOA K Ot Z90.89 ACQUIRED ABSENCE OF OTHER ORGANS 08/31/2017 CHERRY ADKINS DOA K Ot Z98.890 OTHER SPECIFIED POSTPROCEDURAL STATES 09/08/2017 FERNANDO ABBASI MD Ot F17.210 NICOTINE DEPENDENCE, CIGARETTES, UNCOMPL 09/08/2017 FERNANDO ABBASI MD Ot I10 ESSENTIAL (PRIMARY) HYPERTENSION 09/08/2017 FERNANDO ABBASI MD Ot R10.30 LOWER ABDOMINAL PAIN, UNSPECIFIED 09/08/2017 FERNANDO ABBASI MD Ot R10.32 LEFT LOWER QUADRANT PAIN 09/08/2017 FERNANDO ABBASI MD Ot Z80.1 FAMILY HISTORY OF MALIG NEOPLASM OF [place] 09/08/2017 FERNANDO ABBASI MD Ot Z87.19 PERSONAL HISTORY OF OTHER DISEASES OF 09/08/2017 FERNANDO ABBASI MD, Ot Z90.2 ACQUIRED ABSENCE OF LUNG [PART OF] 09/08/2017 FERNANDO ABBASI MD, Ot Z90.89 ACQUIRED ABSENCE OF OTHER ORGANS 09/08/2017 CARLOS ODOM DO Ot C34.2 MALIGNANT NEOPLASM OF [place], [facility] 09/09/2017 CARLOS ODOM DO, Ot C34.2 MALIGNANT NEOPLASM OF [place], [facility] 09/12/2017 FERNANDO ABBASI MD Ot F17.210 NICOTINE DEPENDENCE, CIGARETTES, UNCOMPL 09/12/2017 FERNANDO ABBASI MD Ot I10 ESSENTIAL (PRIMARY) HYPERTENSION 09/12/2017 FERNANDO ABBASI MD, Ot R10.30 LOWER ABDOMINAL PAIN, UNSPECIFIED 09/12/2017 FERNANDO ABBASI MD, Ot R10.32 LEFT LOWER QUADRANT PAIN 09/12/2017 FERNANDO ABBASI MD, Ot Z80.1 FAMILY HISTORY OF MALIG NEOPLASM OF [facility] 09/12/2017 FERNANDO ABBASI MD, Ot Z87.19 PERSONAL HISTORY OF OTHER DISEASES OF 09/12/2017 FERNANDO ABBASI MD, Ot Z90.2 ACQUIRED ABSENCE OF LUNG [PART OF] 09/12/2017 FERNANDO ABBASI MD, Ot Z90.89 ACQUIRED ABSENCE OF OTHER ORGANS 09/15/2017 CARLOS ODOM DO, Ot C34.2 MALIGNANT NEOPLASM OF [place], [facility] 09/15/2017 CARLOS ODOM DO Ot C34.2 MALIGNANT NEOPLASM OF [place], [facility] 09/15/2017 CARLOS ODOM DO, Ot C34.2 MALIGNANT NEOPLASM OF [place], [facility] Procedures There is no data. Results Test [...] panel - 01/03/17 07:15 ABO+Rh group OP [facility] Transfusion band number [id number] [facility] Blood group antibody screen NEGATIVE [facility] Whole blood hemoglobin and hematocrit panel - [...] Status Pt. Type Provider Facility Loc./Unit Complaint [id number] 09/15/2017 07:52:00 09/15/2017 09:45:00 DIS Emergency SAMIA ADAMS MD [facility] ER HEMMORHOID BLEEDING [id number] 09/08/2017 08:31:00 09/08/2017 10:36:00 DIS Emergency FERNANDO ABBASI MD [facility] ER LEFT HIP PAIN, DIZZINESS [id number] 08/29/2017 07:05:00 08/29/2017 10:13:00 DIS Emergency JEDGARRETT Figueredo DO [facility] ER R SIDE LEG PAIN/PREV SURGERY [id number] 08/25/2017 09:18:00 08/25/2017 23:59:59 CLS Outpatient CARLOS ODOM DO [facility] LAB C34.2 [id number] 03/02/2017 07:02:00 03/02/2017 07:21:00 DIS Emergency SAMIA ADAMS MD [facility] ER TICK ON PRIVATE PARTS [id number] 02/01/2017 11:00:00 02/01/2017 23:59:59 CLS Preadmit PABLO MARIE DO [facility] ENDO GI BLEED [id number] 01/28/2017 04:55:00 01/28/2017 10:25:00 DIS Emergency JEREMY CARLSON MD [facility] ER SOB,COUGH [id number] 01/27/2017 05:46:00 01/27/2017 14:06:00 DIS Outpatient PABLO MARIE DO [facility] PREOP GI BLEED [id number] 01/05/2017 10:45:00 01/05/2017 23:59:59 CLS Preadmit CAMILO EDWARDS [facility] RAD AAA REPAIR [id number] 01/03/2017 09:33:00 01/04/2017 12:25:00 DIS Inpatient EDGAR PHILLIPS MD [facility] 4TH LOWER GI BLEED,LLQ ABD PAIN [id number] 07/20/2016 08:53:00 07/20/2016 23:59:59 CLS Outpatient KACI ASHBY MD [facility] RAD ABDOMINAL AORTIC ANEURYSM [id number] 04/24/2016 19:11:00 04/26/2016 12:50:00 DIS Inpatient SAURABH LOVE, NIDIA Masters [facility] ICU CHEST PAIN [id number] 04/21/2016 09:03:00 04/21/2016 23:59:59 CLS Outpatient CESAR NORRIS SPIRITUAL CARE COORDINATOR [facility] LAB POST BLOOD TRANSFUSION [id number] 04/09/2016 09:20:00 04/09/2016 12:45:00 DIS Emergency DWAYNE WANG SPIRITUAL CARE COORDINATOR [facility] ER ABD PAIN/RECTAL BLEEDING [id number] 08/12/2015 13:02:00 08/12/2015 14:54:00 DIS Emergency DWAYNE WANG SPIRITUAL CARE COORDINATOR [facility] ER RIGHT HAND INJURY [id number] 01/25/2015 09:50:00 01/25/2015 12:39:00 DIS Emergency KIRT LOVE, SHALA Hernandez [facility] ER RECTAL BLEEDING [id number] 06/12/2014 16:45:00 06/12/2014 23:59:59 CLS Emergency BRYAN LOVE, SAMIA Barr [facility] ER CHEST WALL PAIN,COUGH, SOA [id number] 06/22/2013 03:40:00 06/22/2013 04:59:00 DIS Emergency SEUN ASKEW MD [facility] ER VOMITING [id number] 01/25/2015 09:50:00 Document Registration [id number] 08/21/2011 01:37:00 Document Registration [id number] 04/25/2010 08:20:00 Document Registration [id number] 09/14/2017 13:40:00 ACT Outpatient KACI ASHBY [facility]
== END 2017-09-15 09:45 | disposition home or self-care (01) ==
LOC: EDUNIT# 07:50 → ER 07:52
DX: K64.4 Residual hemorrhoidal skin tags (principal); I10 Essential (primary) hypertension; F17.210 Nicotine dependence, cigarettes, uncomplicated; Z87.19 Personal history of other diseases of the digestive system; Z90.2 Acquired absence of lung [part of]; Z85.118 Personal history of other malignant neoplasm of bronchus and lung
CPT/HCPCS: 99282

== ENCOUNTER 2017-12-14 09:23 | Emergency (ER) | payer OTHER ==
[~2017-12-14] VITALS: Ht 185.4 cm; Wt 78.0 kg
[~2017-12-14 09:23] MED LIST changes: +HCPR10FM RC; +TIZANIDINE PO
[2017-12-14 10:00] LABS: BASOPHILS # (AUTO) 0.1 10^3/uL (0.0-0.1); BASOPHILS % (AUTO) 1 % (0-10); EOSINOPHILS # (AUTO) 0.2 10^3/uL (0.0-0.3); EOSINOPHILS % (AUTO) 2 % (0-10); HEMATOCRIT 43 % (40-54); HEMOGLOBIN 14.5 G/DL (13.3-17.7); LYMPHOCYTES # (AUTO) 2.3 X 10^3 (1.0-4.0); LYMPHOCYTES % (AUTO) 25 % (12-44); MEAN CORPUSCULAR HEMOGLOBIN 31 PG (25-34); MEAN CORPUSCULAR HGB CONC 34 G/DL (32-36); MEAN CORPUSCULAR VOLUME 92 FL (80-99); MEAN PLATELET VOLUME 8.4 FL (7.4-10.4); MONOCYTES # (AUTO) 0.8 X 10^3 (0.0-1.0); MONOCYTES % (AUTO) 8 % (0-12); NEUTROPHILS # (AUTO) 6.2 X 10^3 (1.8-7.8); NEUTROPHILS % (AUTO) 65 % (42-75); PLATELET COUNT 276 10^3/uL (130-400); RED BLOOD COUNT 4.66 10^6/uL (4.35-5.85); RED CELL DISTRIBUTION WIDTH 13.1 % (10.0-14.5); WHITE BLOOD COUNT 9.5 10^3/uL (4.3-11.0)
[2017-12-14 10:10] LABS: BILIRUBIN,URINE NEGATIVE (NEGATIVE); CLARITY,URINE CLEAR; COLOR,URINE YELLOW; GLUCOSE, URINE (UA) NEGATIVE (NEGATIVE); KETONES,URINE NEGATIVE (NEGATIVE); LEUKOCYTE ESTERASE ,URINE NEGATIVE (NEGATIVE); NITRITE,URINE NEGATIVE (NEGATIVE); PH,URINE 6.5 (5-9); PROTEIN,URINE NEGATIVE (NEGATIVE); UROBILINOGEN,URINE NORMAL (NORMAL)
[2017-12-14 10:15] LABS: INR 1.1 (0.8-1.4); PROTHROMBIN TIME PATIENT 13.8 SEC (12.2-14.7)
[2017-12-14 10:23] LABS: ALANINE AMINOTRANSFERASE 14 U/L (0-55); ALBUMIN 3.9 GM/DL (3.2-4.5); ALKALINE PHOSPHATASE 52 U/L (40-136); BILIRUBIN,TOTAL 0.5 MG/DL (0.1-1.0); BUN/CREATININE RATIO 16; CALCIUM 9.4 MG/DL (8.5-10.1); CARBON DIOXIDE 27 MMOL/L (21-32); CHLORIDE 102 MMOL/L (98-107); CREATININE SERUM 0.92 MG/DL (0.60-1.30); GFR ESTIMATED > 60; GLUCOSE 84 MG/DL (70-105); POTASSIUM 4.3 MMOL/L (3.6-5.0); SODIUM 138 MMOL/L (135-145)
[2017-12-14 10:37] LABS: BACTERIA,URINE NEGATIVE /HPF; SQUAMOUS EPITHELIAL CELL,UR RARE /HPF; WBC,URINE RARE /HPF
[2017-12-14 10:43] LABS: TSH (THYROID ANALYZER) 0.85 UIU/ML (0.35-4.94)
--- NOTE | 2017-12-14 10:59 | Diagnostic Imaging Report ---
Indication: Shortness of air and lightheadedness. Patient has history of lung cancer. Time of exam: 10:37 AM Comparison is made with prior chest from 01/28/2017. The heart size is stable. Lungs are hyperinflated consistent with COPD. No infiltrates are seen. No effusion or pneumothorax is identified. Impression: Stable chest. No acute feature is detected. Dictated by: Dictated on workstation # [id number]
[2017-12-14] MEDS ORDERED: NS 100 ML (IVPB) BAG IV ONE (11:30)
[2017-12-14] MEDS ORDERED: IOHEXOL 350 MG/ML 150 ML (OMNIPAQUE 350) VIAL IV ONE (11:30)
[2017-12-14 12:01] VITALS: BP 113/67
--- NOTE | 2017-12-14 12:22 | Diagnostic Imaging Report ---
PROCEDURE: CT angiography of the chest with contrast. TECHNIQUE: Multiple contiguous axial images were obtained through the chest after uneventful bolus administration of intravenous contrast. Reconstructed CTA MIP acquisitions were also performed. INDICATION: Shortness of air. COMPARISON: Comparison is made with prior CT chest from 01/28/2017. FINDINGS: Evaluation of the pulmonary arterial system is without evidence of thromboembolism. No filling defects are identified within the central, lobar or segmental branches. The thoracic aorta is normal caliber. No dissection is seen. No pericardial or pleural fluid is identified. No hilar lymphadenopathy is seen. No significant mediastinal lymphadenopathy is identified. Left hilum is unremarkable. There is continued reduction in size of a low-density mass in the right infrahilar region. Only minimal residual low density at this location is seen adjacent to the right heart measuring approximately 18 mm x 10 mm compared with 30 mm x 25 mm on prior. There are centrilobular emphysematous changes throughout both lungs. There is some scarring or atelectasis in the posterior aspect of the right upper lobe. No new mass is identified. Upper abdomen demonstrates aneurysmal dilatation of the abdominal aorta which appears to contain an aortic stent graft. This was not entirely included on this study. IMPRESSION: 1. No evidence of pulmonary embolism or thoracic aortic dissection. 2. Decrease in size of right infrahilar mass-like density when compared with CT study from 01/28/2017. No new abnormality is identified. Dictated by: Dictated on workstation # [id number]
[2017-12-14] MEDS ORDERED: GUAI1TBM19 PO (12:43)
[2017-12-14] MEDS ORDERED: METH4TAB PO (12:43)
[2017-12-14] MEDS ORDERED: DOXY100C42 PO (12:43)
[2017-12-14] MEDS ORDERED: BENZ-13 PO (12:43)
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
[2017-12-14 12:57] VITALS: BP 145/91
== END 2017-12-14 13:02 | disposition home or self-care (01) ==
LOC: EDUNIT# 09:23 → ER 09:26
DX: J40 Bronchitis, not specified as acute or chronic (principal); R07.89 Other chest pain; I10 Essential (primary) hypertension; Z85.118 Personal history of other malignant neoplasm of bronchus and lung; Z87.891 Personal history of nicotine dependence; Z90.89 Acquired absence of other organs; Z90.2 Acquired absence of lung [part of]
CPT/HCPCS: 36415; 71045; 71275; 80053; 81000; 83735; 83880; 84443; 84484; 85025; 85610; 85730; 93005; 93041

== ENCOUNTER 2018-09-14 08:26 | Emergency (ER) | payer OTHER ==
[~2018-09-14] VITALS: Ht 185.4 cm; Wt 84.8 kg
[~2018-09-14 08:26] MED LIST changes: +BENZ100C18 PO; +DOXY100C42 PO; +GUAI1TBM19 PO; -LOSA25TA21; -LOSA25TA21 PO; +LOSA25TA41; +LOSA25TA41 PO; +METH4TAB PO
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
[2018-09-14 09:07] LABS: BASOPHILS % (AUTO) 0 % (0-10); EOSINOPHILS # (AUTO) 0.2 10^3/uL (0.0-0.3); EOSINOPHILS % (AUTO) 2 % (0-10); HEMATOCRIT 48 % (40-54); HEMOGLOBIN 16.1 G/DL (13.3-17.7); LYMPHOCYTES # (AUTO) 2.9 X 10^3 (1.0-4.0); LYMPHOCYTES % (AUTO) 33 % (12-44); MEAN CORPUSCULAR HEMOGLOBIN 31 PG (25-34); MEAN CORPUSCULAR HGB CONC 34 G/DL (32-36); MEAN CORPUSCULAR VOLUME 94 FL (80-99); MEAN PLATELET VOLUME 8.5 FL (7.4-10.4); MONOCYTES # (AUTO) 0.8 X 10^3 (0.0-1.0); MONOCYTES % (AUTO) 10 % (0-12); NEUTROPHILS # (AUTO) 4.7 X 10^3 (1.8-7.8); NEUTROPHILS % (AUTO) 55 % (42-75); PLATELET COUNT 274 10^3/uL (130-400); RED CELL DISTRIBUTION WIDTH 13.1 % (10.0-14.5); WHITE BLOOD COUNT 8.6 10^3/uL (4.3-11.0)
[2018-09-14 09:18] LABS: ALANINE AMINOTRANSFERASE 22 U/L (0-55); ALBUMIN 4.6 GM/DL (3.2-4.5); ALKALINE PHOSPHATASE 57 U/L (40-136); BILIRUBIN,TOTAL 0.4 MG/DL (0.1-1.0); BUN/CREATININE RATIO 15; CALCIUM 9.6 MG/DL (8.5-10.1); CARBON DIOXIDE 28 MMOL/L (21-32); CHLORIDE 101 MMOL/L (98-107); CREATININE SERUM 0.91 MG/DL (0.60-1.30); GFR ESTIMATED > 60; GLUCOSE 82 MG/DL (70-105); POTASSIUM 4.3 MMOL/L (3.6-5.0); SODIUM 137 MMOL/L (135-145); TOTAL PROTEIN 7.6 GM/DL (6.4-8.2)
--- NOTE | 2018-09-14 09:29 | Diagnostic Imaging Report ---
INDICATION: Shortness of breath Portable chest 9:15 AM Heart size and pulmonary vascularity are normal. Lungs are clear. There are no effusions or pneumothoraces. IMPRESSION: Negative chest. Dictated by: Dictated on workstation # [id number]
[2018-09-14] MEDS ORDERED: RT-ALBUTEROL/IPRATROPIUM 3 ML (DUONEB) VIAL INH ONE (09:45)
[2018-09-14 09:50] LABS: BILIRUBIN,URINE NEGATIVE (NEGATIVE); CLARITY,URINE CLEAR; COLOR,URINE YELLOW; GLUCOSE, URINE (UA) NEGATIVE (NEGATIVE); KETONES,URINE NEGATIVE (NEGATIVE); LEUKOCYTE ESTERASE ,URINE 1+ (NEGATIVE); NITRITE,URINE NEGATIVE (NEGATIVE); PH,URINE 7 (5-9); PROTEIN,URINE NEGATIVE (NEGATIVE); UROBILINOGEN,URINE NORMAL (NORMAL)
[2018-09-14 09:53] LABS: BACTERIA,URINE NEGATIVE /HPF
[2018-09-14] MEDS ORDERED: methylPREDNISolone 125 MG (Solu-MEDROL) VIAL IVP ONE (11:00)
[2018-09-14] MEDS ORDERED: PRD20T PO (11:02)
[2018-09-14 11:40] VITALS: BP 135/77
== END 2018-09-14 11:40 | disposition home or self-care (01) ==
LOC: EDUNIT# 08:26 → ER 08:27
DX: J44.0 Chronic obstructive pulmonary disease with (acute) lower respiratory infection (principal); J20.9 Acute bronchitis, unspecified; I10 Essential (primary) hypertension; F17.210 Nicotine dependence, cigarettes, uncomplicated; Z79.52 Long term (current) use of systemic steroids; Z87.19 Personal history of other diseases of the digestive system; Z90.89 Acquired absence of other organs; Z90.2 Acquired absence of lung [part of]; Z85.118 Personal history of other malignant neoplasm of bronchus and lung; Z98.890 Other specified postprocedural states
CPT/HCPCS: 36415; 71045; 80053; 81000; 85025

== ENCOUNTER 2018-11-09 14:16 | Emergency (ER) | payer OTHER ==
[~2018-11-09] VITALS: Ht 185.4 cm; Wt 86.2 kg
[~2018-11-09 14:16] MED LIST changes: +PRD20T PO
--- NOTE | 2018-11-09 14:42 | NUR ---
BROUGHT PATIENT TO ROOM AT THIS TIME. WHEN ASIM GPATIENT FROM WAITING ROOM PATIENT C/O DIZZINESS AND WAS BROUGHT BACK IN A WHEELCHAIR FOR HIS SAFETY. JEREMY IS HELPED INTO BED BY THIS RN.
[2018-11-09 15:03] LABS: BASOPHILS # (AUTO) 0.1 10^3/uL (0.0-0.1); BASOPHILS % (AUTO) 1 % (0-10); EOSINOPHILS # (AUTO) 0.2 10^3/uL (0.0-0.3); EOSINOPHILS % (AUTO) 2 % (0-10); HEMATOCRIT 43 % (40-54); HEMOGLOBIN 14.3 G/DL (13.3-17.7); LYMPHOCYTES # (AUTO) 2.3 X 10^3 (1.0-4.0); LYMPHOCYTES % (AUTO) 31 % (12-44); MEAN CORPUSCULAR HEMOGLOBIN 31 PG (25-34); MEAN CORPUSCULAR HGB CONC 33 G/DL (32-36); MEAN CORPUSCULAR VOLUME 94 FL (80-99); MEAN PLATELET VOLUME 8.2 FL (7.4-10.4); MONOCYTES # (AUTO) 0.8 X 10^3 (0.0-1.0); MONOCYTES % (AUTO) 11 % (0-12); NEUTROPHILS # (AUTO) 4.2 X 10^3 (1.8-7.8); NEUTROPHILS % (AUTO) 56 % (42-75); PLATELET COUNT 270 10^3/uL (130-400); RED CELL DISTRIBUTION WIDTH 13.3 % (10.0-14.5); WHITE BLOOD COUNT 7.6 10^3/uL (4.3-11.0)
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
--- NOTE | 2018-11-09 15:18 | Diagnostic Imaging Report ---
INDICATION: Lower respiratory infection FINDINGS: Heart and mediastinum are normal. Lungs are clear. There are no effusions or pneumothoraces. IMPRESSION: Negative chest. Dictated by: Dictated on workstation # [id number]
[2018-11-09 15:24] LABS: ALANINE AMINOTRANSFERASE 16 U/L (0-55); ALBUMIN 4.3 GM/DL (3.2-4.5); ALKALINE PHOSPHATASE 58 U/L (40-136); BILIRUBIN,TOTAL 0.3 MG/DL (0.1-1.0); BUN/CREATININE RATIO 16; CALCIUM 9.1 MG/DL (8.5-10.1); CARBON DIOXIDE 27 MMOL/L (21-32); CHLORIDE 104 MMOL/L (98-107); GFR ESTIMATED > 60; GLUCOSE 89 MG/DL (70-105); MAGNESIUM 1.9 MG/DL (1.8-2.4); POTASSIUM 4.2 MMOL/L (3.6-5.0); SODIUM 138 MMOL/L (135-145); TOTAL PROTEIN 7.2 GM/DL (6.4-8.2)
--- NOTE | 2018-11-09 15:30 | NUR ---
PATIENT ATTEMPTED TO URINATE INTO A URINAL, WAS ASSISTED AT BEDSIDE WITH A STANDBY ASSIST FOR PATIENT SAFETY. UNABLE TO URINATE AT THIS TIME. CALL LIGHT IN REACH, WILL CONTINUE TO MONITOR.
[2018-11-09 15:44] LABS: FREE T4 (FREE THYROXINE) 0.85 NG/DL (0.70-1.48)
[2018-11-09] MEDS ORDERED: LIDOCAINE UROJET 2% GEL 10 ML PKG TOP ONE (16:00)
--- NOTE | 2018-11-09 16:15 | NUR ---
BLANKET PROVIDED TO PATIENT, CALL LIGHT IN REACH, WILL CONTINUE TO MONITOR.
[2018-11-09 16:24] LABS: BILIRUBIN,URINE NEGATIVE (NEGATIVE); CLARITY,URINE CLEAR; COLOR,URINE YELLOW; GLUCOSE, URINE (UA) NEGATIVE (NEGATIVE); KETONES,URINE NEGATIVE (NEGATIVE); LEUKOCYTE ESTERASE ,URINE NEGATIVE (NEGATIVE); NITRITE,URINE NEGATIVE (NEGATIVE); PH,URINE 6.5 (5-9); PROTEIN,URINE NEGATIVE (NEGATIVE); UROBILINOGEN,URINE NORMAL (NORMAL)
[2018-11-09] MEDS ORDERED: TAMS0.4C98 PO (16:28)
[2018-11-09] MEDS ORDERED: CEFD300C3 PO (16:28)
[2018-11-09 16:33] LABS: BACTERIA,URINE NEGATIVE /HPF
--- NOTE | 2018-11-09 17:00 | NUR ---
PATIENT SENT HOME WITH CATHETER IN PLACE, INSTRUCTION GIVEN ON EMPTYING AND CATHETER CARE. INSTRUCTED PATIENT TO KEEP TUBING OFF THE FLOOR AND TO CLEAN THE PENIS AT LEAST TWO TIMES PER DAY. PATINT OPTED TO KEEP LARGER BAG RATHER THAN LEG BAG FOR EMPTYING EASE OVERNIGHT. PATIENT DISCHARGE INSTRUCTIONS REVIEWED PATIENT PREFORMED TEACH BACK ON CATHETER CARE. 1706-PATIENT IS EXCORTED TO PRIVATE VEHICLE VIA WHEELCHAIR BY THIS RN.
[2018-11-09 17:06] VITALS: BP 137/77
== END 2018-11-09 17:06 | disposition home or self-care (01) ==
LOC: EDUNIT# 14:16 → ER 14:17
DX: R33.9 Retention of urine, unspecified (principal); R60.0 Localized edema; I10 Essential (primary) hypertension; F17.210 Nicotine dependence, cigarettes, uncomplicated; Z87.19 Personal history of other diseases of the digestive system; Z90.89 Acquired absence of other organs; Z87.820 Personal history of traumatic brain injury; Z98.890 Other specified postprocedural states; Z90.2 Acquired absence of lung [part of]; Z85.118 Personal history of other malignant neoplasm of bronchus and lung; Z92.21 Personal history of antineoplastic chemotherapy
CPT/HCPCS: 36415; 51702; 71045; 80053; 81000; 83735; 83880; 84439; 84443; 84484; 85025; 93005

== ENCOUNTER 2018-11-13 08:48 | Emergency (ER) | payer OTHER ==
[~2018-11-13] VITALS: Ht 185.4 cm; Wt 86.2 kg
[~2018-11-13 08:48] MED LIST changes: +CEFD300C3 PO; +TAMS0.4C98 PO
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
[2018-11-13 11:11] LABS: BASOPHILS % (AUTO) 1 % (0-10); BILIRUBIN,URINE NEGATIVE (NEGATIVE); CLARITY,URINE VERY CLOUDY; COLOR,URINE RED; EOSINOPHILS # (AUTO) 0.1 10^3/uL (0.0-0.3); EOSINOPHILS % (AUTO) 2 % (0-10); GLUCOSE, URINE (UA) NEGATIVE (NEGATIVE); HEMATOCRIT 46 % (40-54); HEMOGLOBIN 14.9 G/DL (13.3-17.7); KETONES,URINE NEGATIVE (NEGATIVE); LEUKOCYTE ESTERASE ,URINE 2+ (NEGATIVE); LYMPHOCYTES # (AUTO) 1.6 X 10^3 (1.0-4.0); LYMPHOCYTES % (AUTO) 21 % (12-44); MEAN CORPUSCULAR HEMOGLOBIN 30 PG (25-34); MEAN CORPUSCULAR HGB CONC 32 G/DL (32-36); MEAN CORPUSCULAR VOLUME 94 FL (80-99); MEAN PLATELET VOLUME 8.2 FL (7.4-10.4); MONOCYTES # (AUTO) 0.6 X 10^3 (0.0-1.0); MONOCYTES % (AUTO) 8 % (0-12); NEUTROPHILS # (AUTO) 5.2 X 10^3 (1.8-7.8); NEUTROPHILS % (AUTO) 69 % (42-75); NITRITE,URINE NEGATIVE (NEGATIVE); PH,URINE 7 (5-9); PLATELET COUNT 286 10^3/uL (130-400); PROTEIN,URINE 3+ (NEGATIVE); RED CELL DISTRIBUTION WIDTH 13.3 % (10.0-14.5); UROBILINOGEN,URINE NORMAL (NORMAL); WHITE BLOOD COUNT 7.5 10^3/uL (4.3-11.0)
[2018-11-13 11:29] LABS: BUN/CREATININE RATIO 9; CALCIUM 9.7 MG/DL (8.5-10.1); CARBON DIOXIDE 27 MMOL/L (21-32); CHLORIDE 102 MMOL/L (98-107); CREATININE SERUM 0.91 MG/DL (0.60-1.30); GFR ESTIMATED > 60; GLUCOSE 95 MG/DL (70-105); POTASSIUM 4.3 MMOL/L (3.6-5.0); SODIUM 137 MMOL/L (135-145)
[2018-11-13 11:34] LABS: BACTERIA,URINE TRACE /HPF; RBC,URINE TNTC /HPF; WBC,URINE RARE /HPF
[2018-11-13 11:35] LABS: RENAL EPITHELIAL CELLS,URINE RARE /HPF
[2018-11-13 11:52] VITALS: BP 150/72
[2018-11-14] MEDS ORDERED: CYCL10TA9 PO (22:26)
== END 2018-11-13 11:52 | disposition home or self-care (01) ==
LOC: EDUNIT# 08:48 → ER 08:49
DX: R31.9 Hematuria, unspecified (principal); I10 Essential (primary) hypertension; Z87.19 Personal history of other diseases of the digestive system; Z87.820 Personal history of traumatic brain injury; Z85.118 Personal history of other malignant neoplasm of bronchus and lung; Z96.0 Presence of urogenital implants; Z77.22 Contact with and (suspected) exposure to environmental tobacco smoke (acute) (chronic); Z90.89 Acquired absence of other organs; Z98.890 Other specified postprocedural states; Z90.2 Acquired absence of lung [part of]
CPT/HCPCS: 36415; 80048; 81000; 85025; 87088; 99282

== ENCOUNTER 2018-11-14 19:44 | Emergency (ER) | payer OTHER ==
[~2018-11-14] VITALS: Ht 185.4 cm; Wt 86.2 kg
--- OUTSIDE RECORDS SUMMARY | 2018-11-14 19:48 | XMS REPORT ---
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 Active 439328825 Problem Abdominal aortic aneurysm (AAA) without rupture I71.4 Active 05430421 Problem Essential hypertension I10 Active 90434745 Problem Other chronic pain G89.29 Active 07854149 ALLERGIES No Information ENCOUNTERS Encounter Location Date Diagnosis [facility] [id number] [place] [phone] October, Primary osteoarthritis of right knee M17.11 [facility] [id number] [place] [phone] October, Essential hypertension I10 [facility] [id number] [place] [phone] Sep, Primary osteoarthritis of right knee M17.11 and Muscle spasm M62.838 [place] [id number] [place] [phone] Sep, Muscle spasm of back M62.830 ; Pain in right knee M25.561 and Other chronic pain G89.29 [place] [id number] [place] [phone] Sep, [place] [id number] [place] [phone] Jul, Acute pain of right knee M25.561 [place] [id number] [place] [phone] Jan, Essential hypertension I10 [place] [id number] [place] [phone] Jan, Abdominal aortic aneurysm (AAA) without rupture I71.4 ; Essential hypertension I10 ; Mass of left axilla R22.32 ; Squamous cell lung cancer, right C34.91 and Bleeding external hemorrhoids K64.4 [facility] [id number] [place] [id number] Jan, [place] [id number] [place] [phone] Dec, [place] [id number] [place] [phone] Dec, Essential hypertension I10 [place] [id number] [place] [phone] Sep, Malignant neoplasm of right lung, unspecified part of lung C34.91 ; Incisional pain R20.8 and Tobacco use Z72.0 [place] [id number] [place] [phone] Aug, Low back pain M54.5 [place] [id number] [place] [phone] 14 Jul, 2016 [facility] [place] [id number] [place] [phone] 13 Jul, 2016 Low back pain M54.5 [place] [id number] [place] [phone] 06 Jul, 2016 Essential hypertension I10 ; Abdominal aortic aneurysm (AAA) without rupture I71.4 and Pulmonary nodule R91.1 [place] [id number] [place] [phone] Jun, Low back pain M54.5 [place] [id number] [place] [phone] Jun, History of AAA (abdominal aortic aneurysm) repair Z98.890 ; Essential hypertension I10 ; Tobacco use Z72.0 ; Low back pain M54.5 and Other chronic pain G89.29 [facility] [id number] [place] [phone] May, Low back pain M54.5 ; Other chronic pain G89.29 ; Pulmonary nodule R91.1 ; Abdominal aortic aneurysm (AAA) without rupture I71.4 and Essential hypertension I10 [facility] [id number] [place] [phone] Apr, [facility] [id number] [place] [phone] Sep, [facility] [id number] [place] [phone] Sep, [facility] [id number] [place] [phone] Jul, [facility] [id number] [place] [phone] Jul, [facility] [id number] [place] [phone] Jun, [facility] [id number] [place] [phone] Jun, [facility] [id number] [place] [phone] Jun, [facility] [id number] [place] [phone] Jun, IMMUNIZATIONS No Known Immunizations SOCIAL HISTORY Never Assessed REASON FOR VISIT EMR-[facility] PLAN OF CARE VITAL SIGNS MEDICATIONS Unknown Medications RESULTS No Results PROCEDURES No Known procedures INSTRUCTIONS MEDICATIONS ADMINISTERED No Known Medications MEDICAL (GENERAL) HISTORY Type Description Date Medical History 04/09/2016 Aortic aneurysm Medical History lung nodule Surgical History aortic aneurysm repair 04/2016 Surgical History hernia repair x2 Surgical History lung resection, right 09/2016 Hospitalization History Life flighted from [facility] to [facility] for aortic aneurysm 04/2016 Hospitalization History Trauma - hospitalized x 1 month 1972 Hospitalization History Hematochezia, lung CA, HTN-[facility] 01/03/17 Hospitalization History dizzy spells, trouble with vision, and pain 06/10/17
--- OUTSIDE RECORDS SUMMARY | 2018-11-14 19:48 | XMS REPORT ---
Author Author Migration, Doctor Organization [facility] Address Unknown Phone Unavailable Care Team Providers Care Rigging Slinger Name Role Phone Migration, Doctor Unavailable Unavailable PROBLEMS Type Condition ICD9-CM Code GZV02-SE Code Onset Dates Condition Status SNOMED Code Problem Chronic bronchitis, unspecified chronic bronchitis type J42 Active 33690082 Problem Primary osteoarthritis of right knee M17.11 Active 588245992700720 Problem Squamous cell lung cancer, right C34.91 Active 456231909 Problem Abdominal aortic aneurysm (AAA) without rupture I71.4 Active 37621149 Problem Essential hypertension I10 Active 19387065 Problem Other chronic pain G89.29 Active 08287800 ALLERGIES No Information ENCOUNTERS Encounter Location Date Diagnosis [place] [id number] [place] [address] October, Primary osteoarthritis of right knee M17.11 [place] [id number] [place] [address] October, Essential hypertension I10 [place] [id number] [place] [address] Sep, Primary osteoarthritis of right knee M17.11 and Muscle spasm M62.838 [place] [id number] [place] [address] Sep, Muscle spasm of back M62.830 ; Pain in right knee M25.561 and Other chronic pain G89.29 [place] [id number] [place] [address] Sep, [place] [id number] [place] [address] Jul, Acute pain of right knee M25.561 [place] [id number] [place] [address] Jan, Essential hypertension I10 [place] [address] [place] [address] Jan, Abdominal aortic aneurysm (AAA) without rupture I71.4 ; Essential hypertension I10 ; Mass of left axilla R22.32 ; Squamous cell lung cancer, right C34.91 and Bleeding external hemorrhoids K64.4 [facility] [id number] [place] [id number] Jan, [place] [id number] [place] [address] Dec, [place] [id number] [place] [address] Dec, Essential hypertension I10 [place] [id number] [place] [address] Sep, Malignant neoplasm of right lung, unspecified part of lung C34.91 ; Incisional pain R20.8 and Tobacco use Z72.0 [place] [id number] [place] [address] Aug, Low back pain M54.5 [place] [id number] [place] [address] 14 Jul, 2016 [place] [id number] [place] [address] 13 Jul, 2016 Low back pain M54.5 [place] [id number] [place] [address] 06 Jul, 2016 Essential hypertension I10 ; Abdominal aortic aneurysm (AAA) without rupture I71.4 and Pulmonary nodule R91.1 [place] [id number] [place] [address] Jun, Low back pain M54.5 [place] [address] [place] [address] Jun, History of AAA (abdominal aortic aneurysm) repair Z98.890 ; Essential hypertension I10 ; Tobacco use Z72.0 ; Low back pain M54.5 and Other chronic pain G89.29 [place] [id number] [place] [address] May, Low back pain M54.5 ; Other chronic pain G89.29 ; Pulmonary nodule R91.1 ; Abdominal aortic aneurysm (AAA) without rupture I71.4 and Essential hypertension I10 [facility] [id number] [place] [address] Apr, [facility] [id number] [place] [address] Sep, [facility] [id number] [place] [address] Sep, [facility] [id number] [place] [address] Jul, [facility] [address] [address] Jul, [facility] [id number] [place] [address] Jun, [facility] [id number] [place] [address] Jun, [facility] [id number] [place] [address] Jun, [facility] [id number] [place] [address] Jun, IMMUNIZATIONS No Known Immunizations SOCIAL HISTORY Never Assessed REASON FOR VISIT EMR-[facility] PLAN OF CARE VITAL SIGNS MEDICATIONS Medication Instructions Dosage Frequency Start Date End Date Duration Status Azithromycin 250 mg 2 Tablet by Oral route on day 1 then take 1 daily for 4 days Jul, Active Symbicort 160-4.5 mcg/actuation inhale 2 puffs by Inhalation route in the morning and evening 2 times per day for shortness of breath Jul, Active RESULTS No Results PROCEDURES No Known procedures INSTRUCTIONS MEDICATIONS ADMINISTERED No Known Medications MEDICAL (GENERAL) HISTORY Type Description Date Medical History 04/09/2016 Aortic aneurysm Medical History lung nodule Surgical History aortic aneurysm repair 04/2016 Surgical History hernia repair x2 Surgical History lung resection, right 09/2016 Hospitalization History Life flighted from [facility] to [facility] for aortic aneurysm 04/2016 Hospitalization History Trauma - hospitalized x 1 month 1971 Hospitalization History Hematochezia, lung CA, HTN-[facility] 01/03/17 Hospitalization History dizzy spells, trouble with vision, and pain 06/10/17
--- OUTSIDE RECORDS SUMMARY | 2018-11-14 19:48 | XMS REPORT ---
Author Author JP LARSEN [facility] Address [address] [place] [address] Care Team Providers Care Investigative Reporter Name Role Phone JP LARSEN Unavailable PROBLEMS Type Condition ICD9-CM Code MIA20-ND Code Onset Dates Condition Status SNOMED Code Problem Primary osteoarthritis of right knee M17.11 Active 769770616062404 Problem Chronic bronchitis, unspecified chronic bronchitis type J42 Active 85109844 Problem Abdominal aortic aneurysm (AAA) without rupture I71.4 Active 70510663 Problem Squamous cell lung cancer, right C34.91 Active 019986484 Problem Other chronic pain G89.29 Active 85034495 Problem Essential hypertension I10 Active 09126841 ALLERGIES No Information ENCOUNTERS Encounter Location Date Diagnosis [place] [address] [address] October, Primary osteoarthritis of right knee M17.11 [place] [address] [address] October, Essential hypertension I10 [place] [address] [address] Sep, Primary osteoarthritis of right knee M17.11 and Muscle spasm M62.838 [place] [id number] [place] [address] Sep, Muscle spasm of back M62.830 ; Pain in right knee M25.561 and Other chronic pain G89.29 [place] [address] [address] Sep, [place] [id number] [place] [address] Jul, Acute pain of right knee M25.561 [place] [address] [address] Jan, Essential hypertension I10 [place] [id number] [place] [address] Jan, Abdominal aortic aneurysm (AAA) without rupture I71.4 ; Essential hypertension I10 ; Mass of left axilla R22.32 ; Squamous cell lung cancer, right C34.91 and Bleeding external hemorrhoids K64.4 [facility] [id number] [place] [id number] Jan, [place] [id number] [place] [address] Dec, [place] [id number] [place] [address] Dec, Essential hypertension I10 [place] [id number] [place] [address] Sep, Malignant neoplasm of right lung, unspecified part of lung C34.91 ; Incisional pain R20.8 and Tobacco use Z72.0 [place] [id number] [place] [address] Aug, Low back pain M54.5 [place] [address] [place] [address] 14 Jul, 2016 [place] [id number] [place] [address] 13 Jul, 2016 Low back pain M54.5 [facility] [id number] [place] [address] 06 Jul, 2016 Essential hypertension I10 ; Abdominal aortic aneurysm (AAA) without rupture I71.4 and Pulmonary nodule R91.1 [facility] [address] [place] [address] Jun, Low back pain M54.5 [place] [id number] [place] [address] Jun, History of AAA (abdominal aortic aneurysm) repair Z98.890 ; Essential hypertension I10 ; Tobacco use Z72.0 ; Low back pain M54.5 and Other chronic pain G89.29 [facility] [id number] [place] [address] May, Low back pain M54.5 ; Other chronic pain G89.29 ; Pulmonary nodule R91.1 ; Abdominal aortic aneurysm (AAA) without rupture I71.4 and Essential hypertension I10 [facility] [id number] [place] [address] Apr, [facility] [id number] [place] [address] Sep, [facility] [id number] [place] [address] Sep, [facility] [id number] [place] [address] Jul, [facility] [id number] [place] [address] Jul, [facility] [id number] [place] [address] Jun, [facility] [id number] [place] [address] Jun, [facility] [id number] [place] [address] Jun, [facility] [id number] [place] [address] Jun, IMMUNIZATIONS No Known Immunizations SOCIAL HISTORY Never Assessed REASON FOR VISIT Severe Osteoartritis in Right knee, has not been cleared by cardiology yet for j oint replacement, interested in joint injection, Consult Jp Larsen;Giles RT(R) PLAN OF CARE Activity Details Follow Up prn Reason: VITAL SIGNS Height 73 in 2017-10-27 Blood pressure systolic 118 mmHg 2017-10-27 Blood pressure diastolic 62 mmHg 2017-10-27 MEDICATIONS Unknown Medications RESULTS No Results PROCEDURES Procedure Date Ordered Result Body Site DRAIN/INJECT, JOINT/BURSA October 27, 2017 DEPO MEDROL 80 MG/ML October 27, 2017 INSTRUCTIONS MEDICATIONS ADMINISTERED No Known Medications MEDICAL (GENERAL) HISTORY Type Description Date Medical History 04/09/2016 Aortic aneurysm Medical History lung nodule Surgical History aortic aneurysm repair 04/2016 Surgical History hernia repair x2 Surgical History lung resection, right 09/2016 Hospitalization History Life flighted from [facility] to [facility] for aortic aneurysm 04/2016 Hospitalization History Trauma - hospitalized x 1 month 1971 Hospitalization History Hematochezia, lung CA, HTN-[facility] 01/03/17 Hospitalization History dizzy spells, trouble with vision, and pain 06/10/17
--- OUTSIDE RECORDS SUMMARY | 2018-11-14 19:49 | XMS REPORT ---
Author Author KACI ASHBY [facility] Address [address] [place] [address] Care Team Providers Care Client Technologies Analyst Name Role Phone KACI ASHBY Unavailable PROBLEMS Type Condition ICD9-CM Code RXQ37-QV Code Onset Dates Condition Status SNOMED Code Problem Primary osteoarthritis of right knee M17.11 Active 093983018224934 Problem Chronic bronchitis, unspecified chronic bronchitis type J42 Active 81891390 Problem Abdominal aortic aneurysm (AAA) without rupture I71.4 Active 41832031 Problem Squamous cell lung cancer, right C34.91 Active 259766217 Problem Other chronic pain G89.29 Active 97427650 Problem Essential hypertension I10 Active 69012245 ALLERGIES No Known Allergies ENCOUNTERS Encounter Location Date Diagnosis [place] [address] [address] October, Primary osteoarthritis of right knee M17.11 [place] [address] [address] October, Essential hypertension I10 [place] [id number] [place] [address] Sep, Primary osteoarthritis of right knee M17.11 and Muscle spasm M62.838 [place] [address] [id number] [place] [address] Sep, Muscle spasm of back M62.830 ; Pain in right knee M25.561 and Other chronic pain G89.29 [place] [address] [address] Sep, [place] [id number] [place] [address] Jul, Acute pain of right knee M25.561 [place] [address] [place] [address] Jan, Essential hypertension I10 [place] [id number] [place] [address] Jan, Abdominal aortic aneurysm (AAA) without rupture I71.4 ; Essential hypertension I10 ; Mass of left axilla R22.32 ; Squamous cell lung cancer, right C34.91 and Bleeding external hemorrhoids K64.4 [facility] [id number] [place] [phone] Jan, [place] [id number] [place] [address] Dec, [place] [id number] [place] [address] Dec, Essential hypertension I10 [place] [id number] [place] [address] Sep, Malignant neoplasm of right lung, unspecified part of lung C34.91 ; Incisional pain R20.8 and Tobacco use Z72.0 [place] [id number] [place] [address] Aug, Low back pain M54.5 [place] [address] [place] [address] 14 Jul, 2016 [facility] [id number] [place] [address] Jul, Low back pain M54.5 [facility] [address] [place] [address] 06 Jul, 2016 Essential hypertension I10 ; Abdominal aortic aneurysm (AAA) without rupture I71.4 and Pulmonary nodule R91.1 [facility] [address] [place] [address] Jun, Low back pain M54.5 [place] [id number] [place] [address] Jun, History of AAA (abdominal aortic aneurysm) repair Z98.890 ; Essential hypertension I10 ; Tobacco use Z72.0 ; Low back pain M54.5 and Other chronic pain G89.29 [facility] [id number] [place] [address] May, Low back pain M54.5 ; Other chronic pain G89.29 ; Pulmonary nodule R91.1 ; Abdominal aortic aneurysm (AAA) without rupture I71.4 and Essential hypertension I10 [facility] [id number] [place] [address] Apr, [facility] [id number] [place] [address] Sep, [facility] [id number] [place] [phone] Sep, [facility] [id number] [place] [phone] Jul, [facility] [id number] [place] [phone] Jul, [facility] [id number] [place] [phone] Jun, [facility] [id number] [place] [phone] Jun, [facility] [id number] [place] [address] Jun, [facility] [id number] [place] [phone] Jun, IMMUNIZATIONS No Known Immunizations SOCIAL HISTORY Never Assessed REASON FOR VISIT Hospital [id number]--[id number] PLAN OF CARE Activity Details Follow Up 3 Months with Nadya PENA Reason: VITAL SIGNS Height 73 in 2017-09-19 Weight 170.6 lbs 2017-09-19 Temperature 98.0 degrees Fahrenheit 2017-09-19 Heart Rate 76 bpm 2017-09-19 Respiratory Rate 20 2017-09-19 BMI 22.51 kg/m2 2017-09-19 Blood pressure systolic 118 mmHg 2017-09-19 Blood pressure diastolic 70 mmHg 2017-09-19 MEDICATIONS Medication Instructions Dosage Frequency Start Date End Date Duration Status Tylenol Extra Strength 500 MG Orally every 6 hrs 2 tablets as needed 6h Not-Taking PredniSONE 20 mg Orally Once a day 1 tablet 24h Sep, Sep, 14 days Active Symbicort 160-4.5 mcg/actuation inhale 2 puffs by Inhalation route in the morning and evening 2 times per day for shortness of breath Jul, Not-Taking Losartan Potassium 25 MG Orally Once a day 1 tablet 24h Jul, 30 day(s) Not-Taking Zanaflex 4 MG Orally 2 times a day, PRN 1 tablet as needed Sep, Active RESULTS No Results PROCEDURES No Known procedures INSTRUCTIONS MEDICATIONS ADMINISTERED No Known Medications MEDICAL (GENERAL) HISTORY Type Description Date Medical History 04/09/2016 Aortic aneurysm Medical History lung nodule Surgical History aortic aneurysm repair 04/2016 Surgical History hernia repair x2 Surgical History lung resection, right 09/2016 Hospitalization History Life flighted from [facility] to [facility] for aortic aneurysm 04/2016 Hospitalization History Trauma - hospitalized x 1 month 1971 Hospitalization History Hematochezia, lung CA, HTN-[facility] 01/03/17 Hospitalization History dizzy spells, trouble with vision, and pain 06/10/17
--- OUTSIDE RECORDS SUMMARY | 2018-11-14 19:49 | XMS REPORT ---
Author Author KACI ASHBY [facility] Address [address] [place] [address] Care Team Providers Care Grill Associate Name Role Phone KACI ASHBY Unavailable PROBLEMS Type Condition ICD9-CM Code [id number] Code Onset Dates Condition Status SNOMED Code Problem Primary osteoarthritis of right knee M17.11 Active 520962724152998 Problem Chronic bronchitis, unspecified chronic bronchitis type J42 Active 66398624 Problem Abdominal aortic aneurysm (AAA) without rupture I71.4 Active 19678115 Problem Squamous cell lung cancer, right C34.91 Active 055903404 Problem Other chronic pain G89.29 Active 05950297 Problem Essential hypertension I10 Active 58985963 ALLERGIES No Information ENCOUNTERS Encounter Location Date Diagnosis [place] [id number] [id number] [place] [address] October, [facility] [address] [address] Sep, Primary osteoarthritis of right knee M17.11 and Muscle spasm M62.838 [facility] [id number] [place] [address] Sep, Muscle spasm of back M62.830 ; Pain in right knee M25.561 and Other chronic pain G89.29 [facility] [id number] [place] [address] Sep, [facility] [id number] [place] [address] Jul, Acute pain of right knee M25.561 [facility] [id number] [place] [address] Jan, Essential hypertension I10 [facility] [address] [place] [address] Jan, Abdominal aortic aneurysm (AAA) without rupture I71.4 ; Essential hypertension I10 ; Mass of left axilla R22.32 ; Squamous cell lung cancer, right C34.91 and Bleeding external hemorrhoids K64.4 [facility] [id number] [place] [id number] Jan, [place] [address] [address] Dec, [place] [id number] [place] [address] Dec, Essential hypertension I10 [place] [id number] [place] [address] Sep, Malignant neoplasm of right lung, unspecified part of lung C34.91 ; Incisional pain R20.8 and Tobacco use Z72.0 [place] [id number] [place] [address] Aug, Low back pain M54.5 [place] [id number] [place] [address] 14 Jul, 2016 [place] [id number] [place] [address] 13 Jul, 2016 Low back pain M54.5 [place] [id number] [place] [address] 06 Jul, 2016 Essential hypertension I10 ; Abdominal aortic aneurysm (AAA) without rupture I71.4 and Pulmonary nodule R91.1 [place] [id number] [place] [address] Jun, Low back pain M54.5 [place] [id number] [place] [address] 09 Jun, 2016 History of AAA (abdominal aortic aneurysm) repair Z98.890 ; Essential hypertension I10 ; Tobacco use Z72.0 ; Low back pain M54.5 and Other chronic pain G89.29 [facility] [id number] [place] [address] May, Low back pain M54.5 ; Other chronic pain G89.29 ; Pulmonary nodule R91.1 ; Abdominal aortic aneurysm (AAA) without rupture I71.4 and Essential hypertension I10 [facility] [id number] [place] [address] Apr, [facility] [id number] [place] [address] Sep, [facility] [id number] [place] [address] Sep, [facility] [id number] [place] [address] Jul, [facility] [id number] [place] [address] Jul, [facility] [id number] [place] [address] Jun, [facility] [id number] [place] [address] Jun, [facility] [id number] [place] [address] Jun, [facility] [id number] [place] [address] Jun, IMMUNIZATIONS No Known Immunizations SOCIAL HISTORY Never Assessed REASON FOR VISIT bp med PLAN OF CARE VITAL SIGNS MEDICATIONS Medication Instructions Dosage Frequency Start Date End Date Duration Status Losartan Potassium 25 MG Orally Once a day 1 tablet 24h Jul, 30 day(s) Active RESULTS No Results PROCEDURES No Known procedures INSTRUCTIONS MEDICATIONS ADMINISTERED No Known Medications MEDICAL (GENERAL) HISTORY Type Description Date Medical History 04/09/2016 Aortic aneurysm Medical History lung nodule Surgical History aortic aneurysm repair 04/2016 Surgical History hernia repair x2 Surgical History lung resection, right 09/2016 Hospitalization History Life flighted from [facility] to [facility] Higgins for aortic aneurysm 04/2016 Hospitalization History Trauma - hospitalized x 1 month 1971 Hospitalization History Hematochezia, lung CA, HTN-[facility] 01/03/17 Hospitalization History dizzy spells, trouble with vision, and pain 06/10/17
--- OUTSIDE RECORDS SUMMARY | 2018-11-14 19:49 | XMS REPORT ---
Author Author KACI ASHBY [facility] Address [address] [place] [address] Care Team Providers Care Nutter Up Name Role Phone KACI ASHBY Unavailable PROBLEMS Type Condition ICD9-CM Code ZFB22-AQ Code Onset Dates Condition Status SNOMED Code Problem Primary osteoarthritis of right knee M17.11 Active 411873285156337 Problem Chronic bronchitis, unspecified chronic bronchitis type J42 Active 83793482 Problem Abdominal aortic aneurysm (AAA) without rupture I71.4 Active 91620103 Problem Squamous cell lung cancer, right C34.91 Active 996097283 Problem Other chronic pain G89.29 Active 78970559 Problem Essential hypertension I10 Active 65122655 ALLERGIES No Information ENCOUNTERS Encounter Location Date Diagnosis [place] [address] [address] October, Primary osteoarthritis of right knee M17.11 [place] [address] [address] October, Essential hypertension I10 [place] [address] [address] Sep, Primary osteoarthritis of right knee M17.11 and Muscle spasm M62.838 [place] [address] [place] [id number] [address] Sep, Muscle spasm of back M62.830 ; Pain in right knee M25.561 and Other chronic pain G89.29 [place] [address] [address] Sep, [place] [address] [place] [id number] [address] Jul, Acute pain of right knee M25.561 [place] [address], [place] [address] Jan, Essential hypertension I10 [place] [address] [place] [id number] [place] [address] Jan, Abdominal aortic aneurysm (AAA) without rupture I71.4 ; Essential hypertension I10 ; Mass of left axilla R22.32 ; Squamous cell lung cancer, right C34.91 and Bleeding external hemorrhoids K64.4 [facility] [address] [place] [id number] [place] [id number] Jan, [place] [address] [place] [id number] [address] Dec, [place] [address] [place] [id number] [address] Dec, Essential hypertension I10 [place] [address] [place] [id number] [address] Sep, Malignant neoplasm of right lung, unspecified part of lung C34.91 ; Incisional pain R20.8 and Tobacco use Z72.0 [place] [address] [place] [id number] [address] Aug, Low back pain M54.5 [place] [address] [address] 14 Jul, 2016 [place] [address] [place] [id number] [address] 13 Jul, 2016 Low back pain M54.5 [facility] [address] [place] [id number] [address] 06 Jul, 2016 Essential hypertension I10 ; Abdominal aortic aneurysm (AAA) without rupture I71.4 and Pulmonary nodule R91.1 [facility] [address] [place] [address] Jun, Low back pain M54.5 [place] [address] [place] [id number] [address] Jun, History of AAA (abdominal aortic aneurysm) repair Z98.890 ; Essential hypertension I10 ; Tobacco use Z72.0 ; Low back pain M54.5 and Other chronic pain G89.29 [facility] [address] [place] [id number] [address] May, Low back pain M54.5 ; Other chronic pain G89.29 ; Pulmonary nodule R91.1 ; Abdominal aortic aneurysm (AAA) without rupture I71.4 and Essential hypertension I10 [facility] [address] [place] [id number] [address] Apr, [facility] [address] [place] [id number] [address] Sep, [facility] [address] [place] [id number] [address] Sep, [facility] [address] [place] [id number] [address] Jul, [facility] [address] [place] [id number] [address] Jul, [facility] [address] [place] [id number] [address] Jun, [facility] [address] [place] [id number] [address] Jun, [facility] [address] [place] [id number] [address] Jun, [facility] [address] [place] [id number] [address] Jun, IMMUNIZATIONS No Known Immunizations SOCIAL HISTORY Never Assessed REASON FOR VISIT Refill PLAN OF CARE VITAL SIGNS MEDICATIONS Medication [...] right 09/2016 Hospitalization History Life flighted from [facility] to [facility] for aortic aneurysm 04/2016 Hospitalization History Trauma - hospitalized x 1 month 1971 Hospitalization History Hematochezia, lung [place], HTN-[facility] 01/03/17 Hospitalization History dizzy spells, trouble with vision, and pain 06/10/17
--- OUTSIDE RECORDS SUMMARY | 2018-11-14 19:49 | XMS REPORT ---
Author Author KACI ASHBY [facility] Address [address] [place] [address] Care Team Providers Care Early Childhood Teacher Assistant Name Role Phone KACI ASHBY Unavailable PROBLEMS Type Condition ICD9-CM Code FVP50-RR Code Onset Dates Condition Status SNOMED Code Problem Primary osteoarthritis of right knee M17.11 Active 605279259391169 Problem Chronic bronchitis, unspecified chronic bronchitis type J42 Active 14220089 Problem Abdominal aortic aneurysm (AAA) without rupture I71.4 Active 91227965 Problem Squamous cell lung cancer, right C34.91 Active 988234928 Problem Other chronic pain G89.29 Active 38924969 Problem Essential hypertension I10 Active 14649830 ALLERGIES No Known Allergies ENCOUNTERS Encounter Location Date Diagnosis [place] [address] [address] October, Primary osteoarthritis of right knee M17.11 [place] [address] [address] October, Essential hypertension I10 [place] [address] [place] [id number] [place] [address] Sep, Primary osteoarthritis of right knee M17.11 and Muscle spasm M62.838 [place] [address] [place] [id number] [place] [address] Sep, Muscle spasm of back M62.830 ; Pain in right knee M25.561 and Other chronic pain G89.29 [place] [address] [address] Sep, [place] [address] [place] [id number] [place] [address] Jul, Acute pain of right knee M25.561 [place] [address] [place] [address] Jan, Essential hypertension I10 [place] [address] [place] [id number] [place] [address] Jan, Abdominal aortic aneurysm (AAA) without rupture I71.4 ; Essential hypertension I10 ; Mass of left axilla R22.32 ; Squamous cell lung cancer, right C34.91 and Bleeding external hemorrhoids K64.4 [facility] [address] [place] [id number] [place] [phone] Jan, [place] [address] [place] [id number] [place] [address] Dec, [place] [address] [place] [id number] [place] [address] Dec, Essential hypertension I10 [place] [address] [place] [id number] [place] [address] Sep, Malignant neoplasm of right lung, unspecified part of lung C34.91 ; Incisional pain R20.8 and Tobacco use Z72.0 [place] [address] [place] [id number] [place] [address] Aug, Low back pain M54.5 [place] [id number] [place] [address] 14 Jul, 2016 [facility] [place] [address] [place] [id number] [place] [address] Jul, Low back pain M54.5 [facility] [place] [address] [place] [address] 06 Jul, 2016 Essential hypertension I10 ; Abdominal aortic aneurysm (AAA) without rupture I71.4 and Pulmonary nodule R91.1 [facility] [place] [address] [place] [address] Jun, Low back pain M54.5 [place] [address] [place] [id number] [place] [address] Jun, History of AAA (abdominal aortic aneurysm) repair Z98.890 ; Essential hypertension I10 ; Tobacco use Z72.0 ; Low back pain M54.5 and Other chronic pain G89.29 [facility] [place] [address] [place] [id number] [place] [address] May, Low back pain M54.5 ; Other chronic pain G89.29 ; Pulmonary nodule R91.1 ; Abdominal aortic aneurysm (AAA) without rupture I71.4 and Essential hypertension I10 [facility] [place] [address] [place] [id number] [place] [address] Apr, [place] [address] [place] [id number] [place] [address] Sep, [facility] [place] [address] [place] [id number] [place] [address] Sep, [facility] [place] [address] [place] [id number] [place] [address] Jul, [facility] [place] [address] [place] [id number] [place] [address] Jul, [facility] [place] [address] [place] [id number] [place] [phone] Jun, [facility] [place] [address] [place] [id number] [place] [address] Jun, [facility] [place] [address] [place] [id number] [place] [address] Jun, [place] [address] [place] [id number] [place] [address] Jun, IMMUNIZATIONS No Known Immunizations SOCIAL HISTORY Never Assessed REASON FOR VISIT [facility] follow up--[place], Needing referral for possible joint replacement. See xray., Lower back is in pain, when walking to room for appt. pt had a musle spasm and almost fell PLAN OF CARE Activity Details Follow Up 3 Months with Nadya PENA Reason: VITAL SIGNS Height 73 in 2017-09-14 Weight 171.6 lbs 2017-09-14 Temperature 98.2 degrees Fahrenheit 2017-09-14 Heart Rate 80 bpm 2017-09-14 Respiratory Rate 20 2017-09-14 BMI 22.64 kg/m2 2017-09-14 Blood pressure systolic 118 mmHg 2017-09-14 Blood pressure diastolic 72 mmHg 2017-09-14 MEDICATIONS Medication Instructions Dosage Frequency Start Date End Date Duration Status Zanaflex 4 MG Orally 2 times a day, PRN 1 tablet as needed Sep, Active Losartan Potassium 25 MG Orally Once a day 1 tablet 24h Jul, 30 day(s) Not-Taking Tylenol Extra Strength 500 MG Orally every 6 hrs 2 tablets as needed 6h Active Symbicort 160-4.5 mcg/actuation inhale 2 puffs by Inhalation route in the morning and evening 2 times per day for shortness of breath Jul, Not-Taking RESULTS No Results PROCEDURES No Known procedures INSTRUCTIONS MEDICATIONS ADMINISTERED No Known Medications MEDICAL (GENERAL) HISTORY Type Description Date Medical History 04/09/2016 Aortic aneurysm Medical History lung nodule Surgical History aortic aneurysm repair 04/2016 Surgical History hernia repair x2 Surgical History lung resection, right 09/2016 Hospitalization History Life flighted from [facility] to [facility] for aortic aneurysm 04/2016 Hospitalization History Trauma - hospitalized x 1 month 1971 Hospitalization History Hematochezia, lung [place], HTN-[facility] 01/03/17 Hospitalization History dizzy spells, trouble with vision, and pain 06/10/17
--- OUTSIDE RECORDS SUMMARY | 2018-11-14 19:49 | XMS REPORT ---
Author Author JACQUELINE EDGAR [facility] Address [address] [place] [address] Care Team Providers Care Diesel Bus Mechanic Name Role Phone EDGAR PHILLIPS Unavailable PROBLEMS Type Condition ICD9-CM Code HIO41-SS Code Onset Dates Condition Status SNOMED Code Problem Chronic bronchitis, unspecified chronic bronchitis type J42 Active 39538202 Problem Other chronic pain G89.29 Active 68536460 Problem Squamous cell lung cancer, right C34.91 Active 110107852 Problem Essential hypertension I10 Active 76466123 Problem Abdominal aortic aneurysm (AAA) without rupture I71.4 Active 99256259 ALLERGIES No Information ENCOUNTERS Encounter Location Date Diagnosis [place] [address] [address] Sep, [place] [address] [address] Sep, [place] [address] [address] Jul, Acute pain of right knee M25.561 [place] [address] [place] [id number] [place] [address] Jan, Essential hypertension I10 [place] [address] [address] Jan, Abdominal aortic aneurysm (AAA) without rupture I71.4 ; Essential hypertension I10 ; Mass of left axilla R22.32 ; Squamous cell lung cancer, right C34.91 and Bleeding external hemorrhoids K64.4 [facility] [address] [place] [id number] [place] [id number] Jan, [place] [address] [address] Dec, [place] [address] [place] [id number] [place] [address] Dec, Essential hypertension I10 [place] [address] [place] [id number] [place] [address] Sep, Malignant neoplasm of right lung, unspecified part of lung C34.91 ; Incisional pain R20.8 and Tobacco use Z72.0 [place] [address] [place] [id number] [place] [address] Aug, Low back pain M54.5 [place] [address] [place] [id number] [place] [address] 14 Jul, 2016 [place] [address] [place] [id number] [place] [address] Jul, Low back pain M54.5 [place] [address] [place] [id number] [place] [address] 06 Jul, 2016 Essential hypertension I10 ; Abdominal aortic aneurysm (AAA) without rupture I71.4 and Pulmonary nodule R91.1 [place] [address] [place] [id number] [place] [address] Jun, Low back pain M54.5 [place] [address] [place] [id number] [place] [address] Jun, History of AAA (abdominal aortic aneurysm) repair Z98.890 ; Essential hypertension I10 ; Tobacco use Z72.0 ; Low back pain M54.5 and Other chronic pain G89.29 [place] [address] [place] [address] May, Low back pain M54.5 ; Other chronic pain G89.29 ; Pulmonary nodule R91.1 ; Abdominal aortic aneurysm (AAA) without rupture I71.4 and Essential hypertension I10 [place] [address] [place] [id number] [place] [address] Apr, [place] [address] [place] [id number] [address] 14 Sep, 2014 [facility] [address] [place] [id number] [address] Sep, [facility] [address] [address] Jul, [facility] [id number] [address] Jul, [facility] [id number] [address] Jun, [facility] [id number], [place] [address] Jun, [facility] [id number], [place] [address] Jun, [facility] [id number] [address] Jun, IMMUNIZATIONS No Known Immunizations SOCIAL HISTORY Never Assessed REASON FOR VISIT Hospital admit/DC PLAN OF CARE VITAL SIGNS MEDICATIONS Medication Instructions Dosage Frequency Start Date End Date Duration Status Losartan Potassium 25 MG Orally Once a day 1 tablet 24h Jul, 30 day(s) Active Tylenol Extra Strength 500 MG Orally every 6 hrs 2 tablets as needed 6h Active RESULTS No Results PROCEDURES No Known procedures INSTRUCTIONS MEDICATIONS ADMINISTERED No Known Medications MEDICAL (GENERAL) HISTORY Type Description Date Medical History 04/09/2016 Aortic aneurysm Medical History lung nodule Surgical History aortic aneurysm repair 04/2016 Surgical History hernia repair x2 Surgical History lung resection, right 09/2016 Hospitalization History Life flighted from [facility] to [facility] for aortic aneurysm 04/2016 Hospitalization History Trauma - hospitalized x 1 month 1971 Hospitalization History Hematochezia, lung CA, HTN-[facility] 01/03/17
--- OUTSIDE RECORDS SUMMARY | 2018-11-14 19:49 | XMS REPORT ---
Author Author KACI ASHBY [facility] Address [address] [place] [address] Care Team Providers Care Hand Riveter Name Role Phone KACI ASHBY Unavailable PROBLEMS Type Condition ICD9-CM Code ASJ90-UA Code Onset Dates Condition Status SNOMED Code Problem Primary osteoarthritis of right knee M17.11 Active 365857210162712 Problem Chronic bronchitis, unspecified chronic bronchitis type J42 Active 06898337 Problem Abdominal aortic aneurysm (AAA) without rupture I71.4 Active 24113147 Problem Squamous cell lung cancer, right C34.91 Active 304849275 Problem Other chronic pain G89.29 Active 75141373 Problem Essential hypertension I10 Active 01466610 ALLERGIES No Information ENCOUNTERS Encounter Location Date Diagnosis [place] [address] [address] October, Primary osteoarthritis of right knee M17.11 [place] [address] [address] October, Essential hypertension I10 [place] [address] [address] Sep, Primary osteoarthritis of right knee M17.11 and Muscle spasm M62.838 [place] [address] [place] [id number] [place] [address] Sep, Muscle spasm of back M62.830 ; Pain in right knee M25.561 and Other chronic pain G89.29 [place] [address] [address] Sep, [place] [address] [place] [id number] [place] [address] Jul, Acute pain of right knee M25.561 [place] [address], [place] [address] Jan, Essential hypertension I10 [place] [address] [place] [id number] [place] [address] Jan, Abdominal aortic aneurysm (AAA) without rupture I71.4 ; Essential hypertension I10 ; Mass of left axilla R22.32 ; Squamous cell lung cancer, right C34.91 and Bleeding external hemorrhoids K64.4 [facility] [address] [place] [id number] [place] [id number] Jan, [place] [address] [place] [id number] [place] [address] Dec, [place] [address] [place] [id number] [place] [address] Dec, Essential hypertension I10 [place] [address] [place] [id number] [place] [address] Sep, Malignant neoplasm of right lung, unspecified part of lung C34.91 ; Incisional pain R20.8 and Tobacco use Z72.0 [place] [address] [place] [id number] [place] [address] Aug, Low back pain M54.5 [place] [address] [place] [address] 14 Jul, 2016 [place] [address] [place] [id number] [place] [address] 13 Jul, 2016 Low back pain M54.5 [facility] [address] [place] [id number] [place] [address] 06 Jul, 2016 Essential hypertension I10 ; Abdominal aortic aneurysm (AAA) without rupture I71.4 and Pulmonary nodule R91.1 [facility] [address] [place] [address] Jun, Low back pain M54.5 [place] [address] [place] [id number] [place] [address] Jun, History of AAA (abdominal aortic aneurysm) repair Z98.890 ; Essential hypertension I10 ; Tobacco use Z72.0 ; Low back pain M54.5 and Other chronic pain G89.29 [facility] [address], [place] [address] May, Low back pain M54.5 ; Other chronic pain G89.29 ; Pulmonary nodule R91.1 ; Abdominal aortic aneurysm (AAA) without rupture I71.4 and Essential hypertension I10 [facility] [address] [place] [address] Apr, [facility] [address] [place] [id number] [place] [address] Sep, [facility] [address] [place] [id number] [place] [address] Sep, [facility] [address] [place] [id number] [place] [address] Jul, [facility] [address] [place] [id number] [place] [address] Jul, [facility] [address] [place] [id number] [place] [address] Jun, [facility] [address] [place] [id number] [place] [address] Jun, [facility] [address] [place] [id number] [place] [address] Jun, [facility] [address] [place] [id number] [place] [address] Jun, IMMUNIZATIONS No Known Immunizations SOCIAL HISTORY Never Assessed REASON FOR VISIT Requests return call PLAN OF CARE VITAL SIGNS MEDICATIONS Unknown Medications RESULTS No Results PROCEDURES No Known procedures INSTRUCTIONS MEDICATIONS ADMINISTERED No Known Medications MEDICAL (GENERAL) HISTORY Type Description Date Medical History 04/09/2016 Aortic aneurysm Medical History lung nodule Surgical History aortic aneurysm repair 04/2016 Surgical History hernia repair x2 Surgical History lung resection, right 09/2016 Hospitalization History Life flighted from [facility] to [facility] for aortic aneurysm 04/2016 Hospitalization History Trauma - hospitalized x 1 month 1971 Hospitalization History Hematochezia, lung [place], [facility]N-[facility] 01/03/17 Hospitalization History dizzy spells, trouble with vision, and pain 06/10/17
--- OUTSIDE RECORDS SUMMARY | 2018-11-14 19:49 | XMS REPORT ---
Author Author KACI ASHBY [facility] Address [address] [place] [address] Care Team Providers Care Otr Flatbed Driver Name Role Phone KACI ASHBY Unavailable PROBLEMS Type Condition ICD9-CM Code SYP40-WA Code Onset Dates Condition Status SNOMED Code Problem Primary osteoarthritis of right knee M17.11 Active 377762263675848 Problem Chronic bronchitis, unspecified chronic bronchitis type J42 Active 36888580 Problem Abdominal aortic aneurysm (AAA) without rupture I71.4 Active 84142092 Problem Squamous cell lung cancer, right C34.91 Active 730278587 Problem Other chronic pain G89.29 Active 84654769 Problem Essential hypertension I10 Active 47575304 ALLERGIES No Known Allergies ENCOUNTERS Encounter Location Date Diagnosis [place] [address] [address] October, Primary osteoarthritis of right knee M17.11 [place] [address] [address] October, Essential hypertension I10 [place] [address] [place] [id number] [place] [phone] Sep, Primary osteoarthritis of right knee M17.11 and Muscle spasm M62.838 [place] [address] [place] [id number] [place] [phone] Sep, Muscle spasm of back M62.830 ; Pain in right knee M25.561 and Other chronic pain G89.29 [place] [address] [address] Sep, [place] [address] [place] [id number] [place] [address] Jul, Acute pain of right knee M25.561 [place] [id number] [place] [phone] Jan, Essential hypertension I10 [place] [address] [place] [id number] [place] [phone] Jan, Abdominal aortic aneurysm (AAA) without rupture I71.4 ; Essential hypertension I10 ; Mass of left axilla R22.32 ; Squamous cell lung cancer, right C34.91 and Bleeding external hemorrhoids K64.4 [facility] [address] [place] [id number] [place] [phone] Jan, [place] [address] [place] [id number] [place] [phone] Dec, [place] [address] [place] [id number] [place] [phone] Dec, Essential hypertension I10 [place] [address] [place] [id number] [place] [phone] Sep, Malignant neoplasm of right lung, unspecified part of lung C34.91 ; Incisional pain R20.8 and Tobacco use Z72.0 [place] [address] [place] [id number] [place] [phone] Aug, Low back pain M54.5 [place] [id number] [place] [phone] 14 Jul, 2016 [facility] [address] [place] [id number] [place] [phone] Jul, Low back pain M54.5 [facility] [id number] [place] [phone] 06 Jul, 2016 Essential hypertension I10 ; Abdominal aortic aneurysm (AAA) without rupture I71.4 and Pulmonary nodule R91.1 [facility] [id number] [place] [phone] Jun, Low back pain M54.5 [place] [address] [place] [id number] [place] [phone] Jun, History of AAA (abdominal aortic aneurysm) repair Z98.890 ; Essential hypertension I10 ; Tobacco use Z72.0 ; Low back pain M54.5 and Other chronic pain G89.29 [facility] [address] [place] [id number] [place] [phone] May, Low back pain M54.5 ; Other chronic pain G89.29 ; Pulmonary nodule R91.1 ; Abdominal aortic aneurysm (AAA) without rupture I71.4 and Essential hypertension I10 [facility] [address] [place] [id number] [place] [phone] Apr, [facility] [address] [place] [id number] [place] [phone] Sep, [facility] [address] [place] [id number] [place] [phone] Sep, [facility] [address] [place] [id number] [place] [phone] Jul, [facility] [address] [place] [id number] [place] [phone] Jul, [facility] [address] [place] [id number] [place] [phone] Jun, [facility] [address] [place] [id number] [place] [phone] Jun, [facility] [address] [place] [id number] [place] [phone] Jun, [facility] [address] [place] [id number] [place] [phone] Jun, IMMUNIZATIONS No Known Immunizations SOCIAL HISTORY Never Assessed REASON FOR VISIT Pain (acute) knee, Increasing right knee pain-[facility] PLAN OF CARE Activity Details Follow Up 4 Weeks with [facility] for f/u Right knee pain Reason: VITAL SIGNS Height 73 in 2017-07-25 Weight 168 lbs 2017-07-25 Temperature 97.9 degrees Fahrenheit 2017-07-25 Heart Rate 88 bpm 2017-07-25 Respiratory Rate 20 2017-07-25 BMI 22.16 kg/m2 2017-07-25 Blood pressure systolic 128 mmHg 2017-07-25 Blood pressure diastolic 80 mmHg 2017-07-25 MEDICATIONS Medication Instructions Dosage Frequency Start Date End Date Duration Status PredniSONE 20 mg Orally Once a day 1 tablet 24h Jul, Aug, 10 days Active Tylenol Extra Strength 500 MG Orally every 6 hrs 2 tablets as needed 6h Active Losartan Potassium 25 MG Orally Once a day 1 tablet 24h Jul, 30 day(s) Active Symbicort 160-4.5 mcg/actuation inhale 2 puffs by Inhalation route in the morning and evening 2 times per day for shortness of breath Jul, Not-Taking RESULTS Name Result Date Reference Range Xray : Knee, Right 3 views (IN HOUSE) 2017-07-25 PROCEDURES Procedure Date Ordered Result Body Site X-RAY EXAM OF KNEE, 3 Jul 25, 2017 INSTRUCTIONS MEDICATIONS ADMINISTERED No Known Medications MEDICAL (GENERAL) HISTORY Type Description Date Medical History 04/09/2016 Aortic aneurysm Medical History lung nodule Surgical History aortic aneurysm repair 04/2016 Surgical History hernia repair x2 Surgical History lung resection, right 09/2016 Hospitalization History [facility] from [facility] to [place] [facility] for aortic aneurysm 04/2016 Hospitalization History Trauma - hospitalized x 1 month 1971 Hospitalization History Hematochezia, lung CA, HTN-[facility] 01/03/17 Hospitalization History dizzy spells, trouble with vision, and pain 06/10/17
--- OUTSIDE RECORDS SUMMARY | 2018-11-14 19:51 | XMS REPORT | Continuity of Care Document ---
Author Organization Unknown Address Unknown Allergies Active Description Code Type Severity Reaction Onset Reported/Identified Relationship to Patient Clinical Status Yes No Known Drug Allergies [id number] Drug Allergy Mild N/A 11/13/2018 Medications There is no data. Problems Date [...] MD Ot 787.01 NAUSEA WITH VOMITING 06/12/2014 BRYAN LOVE, SAMIA Barr Ot 276.1 HYPOSMOLALITY 06/12/2014 BRYAN LOVE, SAMIA Barr Ot 486 PNEUMONIA, ORGANISM NOS 06/12/2014 BRYAN [...] PROXIMAL PHALANX OF RIGHT LIT 08/12/2015 DWAYNE WAGN APRN Ot W22.8XXA STRIKING AGAINST OR STRUCK BY OTHER OBJE 08/12/2015 DWAYNE WANG APRN Ot Y92.[address] 08/12/2015 WANGDWAYNE PROFESSOR OF VOICE Ot Y99.8 OTHER EXTERNAL CAUSE STATUS 04/09/2016 DWAYNE WANG PROFESSOR OF VOICE Ot F17.210 NICOTINE DEPENDENCE, CIGARETTES, UNCOMPL 04/09/2016 WANGDWAYNE PROFESSOR OF VOICE Ot I71.4 ABDOMINAL AORTIC ANEURYSM, WITHOUT RUPTU 04/09/2016 DWAYNE WANG PROFESSOR OF VOICE Ot K62.5 HEMORRHAGE OF ANUS AND RECTUM 04/09/2016 DWAYNE WANG PROFESSOR OF VOICE Ot R10.32 LEFT LOWER QUADRANT PAIN 04/26/2016 SAURABH LOVE, NIDIA Masters Ot F17.210 NICOTINE DEPENDENCE, CIGARETTES, UNCOMPL 04/26/2016 SAURABH LOVE, NIDIA Masters Ot 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 04/26/2016 NIDIA WILEY MD Ot R06.02 SHORTNESS OF BREATH 04/26/2016 NIDIA WILEY MD Ot R07.89 OTHER CHEST PAIN 04/26/2016 NIDIA WILEY MD Ot R91.8 OTHER NONSPECIFIC ABNORMAL FINDING OF [place] 04/26/2016 JR CESAR Mckeon PROFESSOR OF VOICE Ot Z52.000 UNSPECIFIED DONOR, WHOLE BLOOD 04/26/2016 NORRIS CESAR Mckeon PROFESSOR OF VOICE Ot Z52.000 UNSPECIFIED DONOR, WHOLE BLOOD 04/27/2016 AZAR LOVE, SEUN A Ot 490 BRONCHITIS NOS 04/27/2016 AZAR LOVE, SEUN Masters Ot 787.01 NAUSEA WITH VOMITING 05/04/2016 JR CESAR Mckeon PROFESSOR OF VOICE Ot Z52.000 UNSPECIFIED DONOR, WHOLE BLOOD 05/17/2016 CESAR NORRIS PROFESSOR OF VOICE Ot Z52.000 UNSPECIFIED DONOR, WHOLE BLOOD 05/17/2016 NORRIS CESAR Mckeon PROFESSOR OF VOICE Ot Z52.000 UNSPECIFIED DONOR, WHOLE BLOOD 07/20/2016 CESAR NORRIS R PROFESSOR OF VOICE Ot Z52.000 UNSPECIFIED DONOR, WHOLE BLOOD 07/21/2016 KACI ASHBY MD Ot I10 ESSENTIAL (PRIMARY) HYPERTENSION 07/21/2016 KACI ASHBY MD Ot I71.4 ABDOMINAL AORTIC ANEURYSM, WITHOUT RUPTU 07/21/2016 KACI ASHBY MD Ot R91.1 SOLITARY PULMONARY NODULE 08/12/2016 GAULT MD, KACI R Ot I10 ESSENTIAL (PRIMARY) HYPERTENSION 08/12/2016 KACI ASHBY MD Ot I71.4 ABDOMINAL AORTIC ANEURYSM, WITHOUT RUPTU 08/12/2016 KACI ASHBY MD Ot R91.1 SOLITARY PULMONARY NODULE 01/04/2017 CESAR NORRIS PROFESSOR OF VOICE Ot Z52.000 UNSPECIFIED DONOR, WHOLE BLOOD 01/04/2017 KACI ASHBY MD Ot I10 ESSENTIAL (PRIMARY) HYPERTENSION 01/04/2017 KACI ASHBY MD Ot I71.4 ABDOMINAL AORTIC ANEURYSM, WITHOUT RUPTU 01/04/2017 KACI ASHBY MD Ot R91.1 SOLITARY PULMONARY NODULE 01/04/2017 EDGAR PHILLIPS MD Ot F17.210 NICOTINE DEPENDENCE, CIGARETTES, UNCOMPL 01/04/2017 EDGAR PHILLIPS MD Ot I10 ESSENTIAL (PRIMARY) HYPERTENSION 01/04/2017 EDGAR [...] Z01.818 ENCOUNTER FOR OTHER PREPROCEDURAL EXAMIN 01/28/2017 ROBYN LOVE, JEREMY Tavarez Ot F17.210 NICOTINE DEPENDENCE, CIGARETTES, UNCOMPL 01/28/2017 ROBYN LOVE, JEREMY Tavarez Ot J18.9 PNEUMONIA, UNSPECIFIED ORGANISM 01/28/2017 JEREMY [...] Z90.89 ACQUIRED ABSENCE OF OTHER ORGANS 03/02/2017 BRYAN LOVE, SAMIA Barr Ot F17.210 NICOTINE DEPENDENCE, CIGARETTES, UNCOMPL 03/02/2017 [...] UNSPECIFIED DONOR, WHOLE BLOOD 03/02/2017 KACI ASHBY MD Ot I10 ESSENTIAL (PRIMARY) HYPERTENSION 03/02/2017 SYMONE LOVE, KACI Mckeon Ot I71.4 ABDOMINAL AORTIC ANEURYSM, WITHOUT RUPTU [...] ABSENCE OF OTHER ORGANS 03/06/2017 SAMIA ADAMS MD, Ot F17.210 NICOTINE DEPENDENCE, CIGARETTES, UNCOMPL 03/06/2017 [...] Ot C34.2 MALIGNANT NEOPLASM OF MIDDLE LOBE, [facility] 08/29/2017 CARLOS ODOM DO Ot C34.2 MALIGNANT NEOPLASM OF MIDDLE LOBE, [facility] 08/29/2017 JED DO GARRETT K Ot F17.210 NICOTINE DEPENDENCE, CIGARETTES, UNCOMPL 08/29/2017 JED DO GARRETT K Ot I10 ESSENTIAL (PRIMARY) HYPERTENSION 08/29/2017 JED DO GARRETT K Ot R10.31 RIGHT LOWER QUADRANT PAIN 08/29/2017 JED DO GARRETT K Ot R31.21 ASYMPTOMATIC MICROSCOPIC HEMATURIA 08/29/2017 JED DO GARRETT K Ot Z85.118 PERSONAL HISTORY OF MALIGNANT NEOPLASM O 08/29/2017 JED , GARRETT K Ot Z86.79 PERSONAL HISTORY OF OTHER DISEASES OF 08/29/2017 JED DO GARRETT K Ot Z87.19 PERSONAL HISTORY OF OTHER DISEASES OF 08/29/2017 JED , GARRETT K Ot Z90.2 ACQUIRED ABSENCE OF LUNG [PART OF] 08/29/2017 JED , GARRETT K Ot Z90.89 ACQUIRED ABSENCE OF OTHER ORGANS 08/29/2017 JED , GARRETT K Ot Z98.890 OTHER SPECIFIED POSTPROCEDURAL STATES 08/31/2017 JED DO, GARRETT K Ot F17.210 NICOTINE DEPENDENCE, CIGARETTES, UNCOMPL 08/31/2017 JED DO, GARRETT K Ot I10 ESSENTIAL (PRIMARY) HYPERTENSION 08/31/2017 JED DO, GARRETT K Ot R10.31 RIGHT LOWER QUADRANT PAIN 08/31/2017 JED , GARRETT K Ot R31.21 ASYMPTOMATIC MICROSCOPIC HEMATURIA 08/31/2017 JED , GARRETT K Ot Z85.118 PERSONAL HISTORY OF MALIGNANT NEOPLASM O 08/31/2017 JED , GARRETT K Ot Z86.79 PERSONAL HISTORY OF OTHER DISEASES OF 08/31/2017 JED , GARRETT K Ot Z87.19 PERSONAL HISTORY OF OTHER DISEASES OF 08/31/2017 JED , GARRETT K Ot Z90.2 ACQUIRED ABSENCE OF LUNG [PART OF] 08/31/2017 JED , GARRETT K Ot Z90.89 ACQUIRED ABSENCE OF OTHER ORGANS 08/31/2017 JED , GARRETT K Ot Z98.890 OTHER SPECIFIED POSTPROCEDURAL STATES 09/08/2017 FERNANDO ABBASI MD Ot F17.210 NICOTINE DEPENDENCE, CIGARETTES, UNCOMPL 09/08/2017 FERNANDO ABBASI MD Ot I10 ESSENTIAL (PRIMARY) HYPERTENSION 09/08/2017 FERNANDO ABBASI MD Ot R10.30 LOWER ABDOMINAL PAIN, UNSPECIFIED 09/08/2017 FERNANDO ABBASI MD Ot R10.32 LEFT LOWER QUADRANT PAIN 09/08/2017 FERNANDO ABBASI MD Ot Z80.1 FAMILY HISTORY OF MALIG NEOPLASM OF [facility] 09/08/2017 FERNANDO ABBASI MD Ot Z87.19 PERSONAL HISTORY OF OTHER DISEASES OF 09/08/2017 FERNANDO ABBASI MD, Ot Z90.2 ACQUIRED ABSENCE OF LUNG [PART OF] 09/08/2017 FERNANDO ABBASI MD Ot Z90.89 ACQUIRED ABSENCE OF OTHER ORGANS 09/08/2017 CARLOS ODOM DO Ot C34.2 MALIGNANT NEOPLASM OF MIDDLE LOBE, [facility] 09/09/2017 CARLOS ODOM DO, Ot C34.2 MALIGNANT NEOPLASM OF MIDDLE LOBE, [facility] 09/12/2017 FERNANDO ABBASI MD, Ot F17.210 NICOTINE DEPENDENCE, CIGARETTES, UNCOMPL 09/12/2017 FERNANDO ABBASI MD Ot I10 ESSENTIAL (PRIMARY) HYPERTENSION 09/12/2017 FERNANDO ABBASI MD Ot R10.30 LOWER ABDOMINAL PAIN, UNSPECIFIED 09/12/2017 FERNANDO ABBASI MD Ot R10.32 LEFT LOWER QUADRANT PAIN 09/12/2017 FERNANDO ABBASI MD Ot Z80.1 FAMILY HISTORY OF MALIG NEOPLASM OF [facility] 09/12/2017 FERNANDO ABBASI MD, Ot Z87.19 PERSONAL HISTORY OF OTHER DISEASES OF 09/12/2017 FERNANDO ABBASI MD, Ot Z90.2 ACQUIRED ABSENCE OF LUNG [PART OF] 09/12/2017 FERNANDO ABBASI MD, Ot Z90.89 ACQUIRED ABSENCE OF OTHER ORGANS 09/15/2017 CARLOS ODOM DO, Ot C34.2 MALIGNANT NEOPLASM OF MIDD[place], [facility] 09/15/2017 SAMIA ADAMS MD Ot F17.210 NICOTINE DEPENDENCE, CIGARETTES, UNCOMPL 09/15/2017 SAMIA ADAMS MD Ot I10 ESSENTIAL (PRIMARY) HYPERTENSION 09/15/2017 SAMIA ADAMS MD Ot K64.4 RESIDUAL HEMORRHOIDAL SKIN TAGS 09/15/2017 SAMIA ADAMS MD Ot Z85.118 PERSONAL HISTORY OF MALIGNANT NEOPLASM O 09/15/2017 SAMIA ADAMS MD Ot Z87.19 PERSONAL HISTORY OF OTHER DISEASES OF 09/15/2017 SAMIA ADAMS MD Ot Z90.2 ACQUIRED ABSENCE OF LUNG [PART OF] 09/15/2017 CARLOS ODOM DO Ot C34.2 MALIGNANT NEOPLASM OF MIDD[place], [facility] 09/15/2017 ODOM DO, CARLOS D Ot C34.2 MALIGNANT NEOPLASM OF MIDD[place], [facility] 09/16/2017 ODOM DO, CARLOS Montilla Ot C34.2 MALIGNANT NEOPLASM OF MIDDLE [place], [facility] 09/16/2017 LEI JONES, CARLOS Montilla Ot C34.2 MALIGNANT NEOPLASM OF MIDD[place], [facility] 09/19/2017 BRYAN LOVE, SAMIA Barr Ot F17.210 NICOTINE DEPENDENCE, CIGARETTES, UNCOMPL 09/19/2017 BRYAN LOVE, SAMIA Barr Ot I10 ESSENTIAL (PRIMARY) HYPERTENSION 09/19/2017 BRYAN LOVE, SAMIA Barr Ot K64.4 RESIDUAL HEMORRHOIDAL SKIN TAGS 09/19/2017 SAMIA ADAMS MD Ot Z85.118 PERSONAL HISTORY OF MALIGNANT NEOPLASM O 09/19/2017 BRYAN LOVE, SAMIA Barr Ot Z87.19 PERSONAL HISTORY OF OTHER DISEASES OF TH 09/19/2017 BRYAN LOVE, SAMIA Barr Ot Z90.2 ACQUIRED ABSENCE OF LUNG [PART OF] 11/23/2017 CARLOS ODOM DO Ot C34.2 MALIGNANT NEOPLASM OF MIDDLE [place], [facility] 11/25/2017 LEI JONES, CARLOS Montilla Ot C34.2 MALIGNANT NEOPLASM OF MIDDLE LOBE, [facility] 12/14/2017 CARLOS ODOM DO Ot C34.2 MALIGNANT NEOPLASM OF MIDDLE LOBE, [facility] 12/14/2017 CARLOS ODOM DO Ot C34.2 MALIGNANT NEOPLASM OF MIDDLE LOBE, [facility] 12/14/2017 GARRETT ADKINS DO Ot I10 ESSENTIAL (PRIMARY) HYPERTENSION 12/14/2017 GARRETT ADKINS DO Ot J40 BRONCHITIS, NOT SPECIFIED ACUTE OR CH 12/14/2017 GARRETT ADKINS DO Ot R07.89 OTHER CHEST PAIN 12/14/2017 GARRETT ADKINS DO Ot R42 DIZZINESS AND GIDDINESS 12/14/2017 GARRETT ADKINS DO Ot Z85.118 PERSONAL HISTORY OF MALIGNANT NEOPLASM O 12/14/2017 GARRETT ADKINS DO Ot Z87.891 PERSONAL HISTORY OF NICOTINE DEPENDENCE 12/14/2017 GARRETT ADKINS DO Ot Z90.2 ACQUIRED ABSENCE OF LUNG [PART OF] 12/14/2017 GARRETT ADKINS DO Ot Z90.89 ACQUIRED ABSENCE OF OTHER ORGANS 12/16/2017 GARRETT ADKINS DO Ot I10 ESSENTIAL (PRIMARY) HYPERTENSION 12/16/2017 JED JONES GARRETT K Ot J40 BRONCHITIS, NOT SPECIFIED ACUTE OR CH 12/16/2017 JED JONES GARRETT K Ot R07.89 OTHER CHEST PAIN 12/16/2017 JED JONES GARRETT K Ot R42 DIZZINESS AND GIDDINESS 12/16/2017 JED JONES GARRETT K Ot Z85.118 PERSONAL HISTORY OF MALIGNANT NEOPLASM O 12/16/2017 JED JONES GARRETT K Ot Z87.891 PERSONAL HISTORY OF NICOTINE DEPENDENCE 12/16/2017 JED JONESGARRETT K Ot Z90.2 ACQUIRED ABSENCE OF LUNG [PART OF] 12/16/2017 JED JONES GARRETT K Ot Z90.89 ACQUIRED ABSENCE OF OTHER ORGANS 03/03/2018 CESAR NORRIS APRN Ot Z52.000 UNSPECIFIED DONOR, WHOLE BLOOD 03/03/2018 KACI ASHBY MD Ot I10 ESSENTIAL (PRIMARY) HYPERTENSION 03/03/2018 KACI ASHBY MD Ot I71.4 ABDOMINAL AORTIC ANEURYSM, WITHOUT RUPTU 03/03/2018 KACI ASHBY MD Ot R91.1 SOLITARY PULMONARY NODULE 09/18/2018 SHALA MORALEZ MD, Ot F17.210 NICOTINE DEPENDENCE, CIGARETTES, UNCOMPL 09/18/2018 SHALA MORALEZ MD, Ot I10 ESSENTIAL (PRIMARY) HYPERTENSION 09/18/2018 SHALA MORALEZ MD, Ot J20.9 ACUTE BRONCHITIS, UNSPECIFIED 09/18/2018 SHALA MORALEZ MD, Ot J44.0 CHRONIC OBSTRUCTIVE PULMON DISEASE W ACU 09/18/2018 SHALA MORALEZ MD Ot R06.02 SHORTNESS OF BREATH 09/18/2018 SHALA MORALEZ MD Ot Z79.52 PAINT GRINDER (CURRENT) USE OF SYSTEMIC STER 09/18/2018 SHALA MORALEZ MD, Ot Z85.118 PERSONAL HISTORY OF MALIGNANT NEOPLASM O 09/18/2018 SHALA MORALEZ MD, Ot Z87.19 PERSONAL HISTORY OF OTHER DISEASES OF TH 09/18/2018 SHALA MORALEZ MD Ot Z90.2 ACQUIRED ABSENCE OF LUNG [PART OF] 09/18/2018 SHALA MORALEZ MD, Ot Z90.89 ACQUIRED ABSENCE OF OTHER ORGANS 09/18/2018 SHALA MORALEZ MD Ot Z98.890 OTHER SPECIFIED POSTPROCEDURAL STATES 11/09/2018 CARINE ODOM DOJOCELYNE Montilla Ot C34.2 MALIGNANT NEOPLASM OF MID[place], [facility] 11/13/2018 LEI CARLOS JONES Eladia Ot C34.2 MALIGNANT NEOPLASM OF MIDD[place] LOBE, [facility] 11/14/2018 DWAYNE WANG APRN Ot F17.210 NICOTINE DEPENDENCE, CIGARETTES, UNCOMPL 11/14/2018 DWAYNE WANG APRN Ot I10 ESSENTIAL (PRIMARY) HYPERTENSION 11/14/2018 DWAYNE WANG APRN Ot M79.89 OTHER SPECIFIED SOFT TISSUE DISORDERS 11/14/2018 DWAYNE WANG APRN Ot R33.9 RETENTION OF URINE, UNSPECIFIED 11/14/2018 DWAYNE WANG APRN Ot R60.0 LOCALIZED EDEMA 11/14/2018 DWAYNE WANG APRN Ot Z85.118 PERSONAL HISTORY OF MALIGNANT NEOPLASM O 11/14/2018 DWAYNE WANG APRN Ot Z87.19 PERSONAL HISTORY OF OTHER DISEASES OF TH 11/14/2018 DWAYNE WANG APRN Ot Z87.820 PERSONAL HISTORY OF TRAUMATIC BRAIN INJU 11/14/2018 DWAYNE WANG APRN Ot Z90.2 ACQUIRED ABSENCE OF LUNG [PART OF] 11/14/2018 DWAYNE WANG APRN Ot Z90.89 ACQUIRED ABSENCE OF OTHER ORGANS 11/14/2018 DWAYNE WANG APRN Ot Z92.21 PERSONAL HISTORY OF ANTINEOPLASTIC CHEMO 11/14/2018 DWAYNE WANG APRN Ot Z98.890 OTHER SPECIFIED POSTPROCEDURAL STATES Procedures [...] Automated erythrocyte mean corpuscular hemoglobin concentration measurement (mass/volume) 34 g/dL 32-36 Automated erythrocyte distribution width ratio 13.0 % 10.0- 14.5 Automated blood platelet count (count/volume) 295 10*3/uL [...] Blood monocytes automated count (number/volume) 0.5 10*3 0.0- 1.0 Automated eosinophil count 0.2 10*3/uL 0.0-0.3 Automated [...] Serum or plasma aspartate aminotransferase measurement (enzymatic activity/volume) 22 U/L 5-34 Serum or plasma alanine aminotransferase measurement (enzymatic activity/volume) 16 U/L 0-55 Serum or plasma protein measurement (mass/volume) 7.4 g/dL 6.4-8.2 Serum or plasma albumin measurement (mass/volume) 4.4 g/dL 3.2-4.5 Fibrin D-dimer FEU measurement in platelet poor plasma (mass/volume) - 04/09/16 10:08 Fibrin D-dimer FEU measurement in platelet poor plasma (mass/volume) 0.85 ug/mL 0.00-0.49 Complete urinalysis with reflex to culture - 04/09/16 10:37 Urine color determination YELLOW NRG Urine clarity determination CLEAR NRG Urine pH measurement by test strip 6 5-9 Specific gravity of urine by test strip 1.005 1.016-1.022 Urine protein assay by test strip, semi-quantitative [...] sediment leukocyte count by microscopy (number/high power field) NONE NRG Bacteria detection in urine sediment [...] Automated erythrocyte mean corpuscular hemoglobin concentration measurement (mass/volume) 33 g/dL 32-36 Automated erythrocyte distribution width ratio 15.0 % 10.0- 14.5 Automated blood platelet count (count/volume) 649 10*3/uL [...] Blood monocytes automated count (number/volume) 0.6 10*3 0.0- 1.0 Automated eosinophil count 0.2 10*3/uL 0.0-0.3 Automated [...] Automated erythrocyte mean corpuscular hemoglobin concentration measurement (mass/volume) 32 g/dL 32-36 Automated erythrocyte distribution width ratio 15.6 % 10.0- 14.5 Automated blood platelet count (count/volume) 610 10*3/uL [...] Blood monocytes automated count (number/volume) 0.8 10*3 0.0- 1.0 Automated eosinophil count 0.2 10*3/uL 0.0-0.3 Automated [...] Serum or plasma aspartate aminotransferase measurement (enzymatic activity/volume) 28 U/L 5-34 Serum or plasma alanine aminotransferase measurement (enzymatic activity/volume) 24 U/L 0-55 Serum or plasma protein measurement (mass/volume) 7.1 g/dL 6.4-8.2 Serum or plasma albumin measurement (mass/volume) 3.9 g/dL 3.2-4.5 Magnesium - 04/24/16 15:50 Magnesium 2.1 mg/dL 1.8-2.4 Serum or plasma troponin i.cardiac measurement (mass/volume) - 04/24/16 15:50 Serum or plasma troponin i.cardiac measurement (mass/volume) < ng/mL <0.30 Myoglobin, serum - 04/24/16 15:50 Myoglobin, serum 45.5 ng/mL 10.0-92.0 Activated partial thromboplastin time (aPTT) in platelet poor plasma bycoagulation assay - 04/24/16 15:50 Activated partial thromboplastin time (aPTT) in platelet poor plasma bycoagulation assay 29 s 24-35 Serum or plasma creatine kinase measurement (enzymatic activity/volume) - 04/24/16 21:50 Serum or plasma creatine kinase measurement (enzymatic activity/volume) 98 U/L 30-200 Serum or plasma troponin i.cardiac measurement (mass/volume) - 04/24/16 21:50 Serum or plasma troponin i.cardiac measurement (mass/volume) < ng/mL <0.30 Lipid 1996 panel - 04/25/16 03:41 Serum or plasma triglyceride measurement (mass/volume) 119 mg/dL <150 Serum or plasma cholesterol measurement (mass/volume) 151 mg/dL < 200 Serum or plasma cholesterol in HDL measurement (mass/volume) 45 mg/dL 40-60 Cholesterol in LDL [mass/volume] in serum or plasma by direct assay 87 mg/dL 1-129 Serum or plasma cholesterol in VLDL measurement (mass/volume) 24 mg/dL 5-40 Automated blood complete blood count (hemogram) [...] Automated erythrocyte mean corpuscular hemoglobin concentration measurement (mass/volume) 33 g/dL 32-36 Automated erythrocyte distribution width ratio 15.6 % 10.0- 14.5 Automated blood platelet count (count/volume) 569 10*3/uL [...] Automated erythrocyte mean corpuscular hemoglobin concentration measurement (mass/volume) 34 g/dL 32-36 Automated erythrocyte distribution width ratio 13.2 % 10.0- 14.5 Automated blood platelet count (count/volume) 246 10*3/uL [...] calculation of estimated glomerular filtration rate > [facility] Serum or plasma glucose measurement (mass/volume) 92 mg/dL 70-105 Serum or plasma calcium measurement (mass/volume) 9.0 mg/dL 8.5-10.1 Serum or plasma total bilirubin measurement (mass/volume) 0.3 mg/dL 0.1-1.0 Serum or plasma alkaline phosphatase measurement (enzymatic activity/volume) 65 U/L 40-136 Serum or plasma aspartate aminotransferase measurement (enzymatic activity/volume) 21 U/L 5-34 Serum or plasma alanine aminotransferase measurement (enzymatic activity/volume) 13 U/L 0-55 Serum or plasma protein measurement (mass/volume) 7.6 g/dL 6.4-8.2 Serum or plasma albumin measurement (mass/volume) 4.4 g/dL 3.2-4.5 Blood type T Indirect antibody screen panel - 01/03/17 07:15 ABO+Rh group OP [facility] Transfusion band number [id number] [facility] Blood group antibody screen NEGATIVE [facility] Whole blood hemoglobin and hematocrit [...] Automated erythrocyte mean corpuscular hemoglobin concentration measurement (mass/volume) 33 g/dL 32-36 Automated erythrocyte distribution width ratio 13.8 % 10.0- 14.5 Automated blood platelet count (count/volume) 264 10*3/uL [...] Blood monocytes automated count (number/volume) 0.5 10*3 0.0- 1.0 Automated eosinophil count 0.2 10*3/uL 0.0-0.3 Automated [...] Serum or plasma aspartate aminotransferase measurement (enzymatic activity/volume) 20 U/L 5-34 Serum or plasma alanine aminotransferase measurement (enzymatic activity/volume) 16 U/L 0-55 Serum or plasma protein [...] Automated erythrocyte mean corpuscular hemoglobin concentration measurement (mass/volume) 33 g/dL 32-36 Automated erythrocyte distribution width ratio 13.9 % 10.0- 14.5 Automated blood platelet count (count/volume) 288 10*3/uL [...] Blood monocytes automated count (number/volume) 0.8 10*3 0.0- 1.0 Automated eosinophil count 0.2 10*3/uL 0.0-0.3 Automated blood basophil count (count/volume) 0.1 10*3/uL 0.0-0.1 Fibrin D-dimer FEU measurement in platelet poor plasma (mass/volume) - 01/28/17 05:23 Fibrin D-dimer FEU measurement in platelet [...] Serum or plasma aspartate aminotransferase measurement (enzymatic activity/volume) 26 U/L 5-34 Serum or plasma alanine aminotransferase measurement (enzymatic activity/volume) 15 U/L 0-55 Serum or plasma protein measurement (mass/volume) 7.3 g/dL 6.4-8.2 Serum or plasma albumin measurement (mass/volume) 4.1 g/dL 3.2-4.5 Magnesium - 01/28/17 05:23 Magnesium 1.9 mg/dL 1.8-2.4 Serum or plasma troponin i.cardiac measurement (mass/volume) - 01/28/17 05:23 Serum or plasma troponin i.cardiac measurement (mass/volume) < ng/mL <0.30 Serum or plasma C reactive protein measurement (mass/volume) - 01/28/17 05:23 Serum or plasma C reactive protein measurement (mass/volume) 0.55 mg/dL 0.00-0.50 Serum or plasma lithium measurement (moles/volume) - 01/28/17 05:23 BNP level 16.4 pg/mL <100.0 Complete urinalysis with reflex to culture - 01/28/17 08:20 Urine color determination YELLOW NRG Urine clarity determination CLEAR NRG Urine pH measurement by test strip 7 5-9 Specific gravity of urine by test strip 1.005 1.016-1.022 Urine protein assay by test strip, semi-quantitative [...] sediment leukocyte count by microscopy (number/high power field) NONE NRG Bacteria detection in urine sediment [...] Automated erythrocyte mean corpuscular hemoglobin concentration measurement (mass/volume) 34 g/dL 32-36 Automated erythrocyte distribution width ratio 13.5 % 10.0- 14.5 Automated blood platelet count (count/volume) 284 10*3/uL [...] Blood monocytes automated count (number/volume) 0.4 10*3 0.0- 1.0 Automated eosinophil count 0.1 10*3/uL 0.0-0.3 Automated [...] Serum or plasma aspartate aminotransferase measurement (enzymatic activity/volume) 23 U/L 5-34 Serum or plasma alanine aminotransferase measurement (enzymatic activity/volume) 18 U/L 0-55 Serum or plasma protein measurement (mass/volume) 7.4 g/dL 6.4-8.2 Serum or plasma albumin measurement (mass/volume) 4.4 g/dL 3.2-4.5 Complete urinalysis with reflex to culture - 08/29/17 07:50 Urine color determination YELLOW NRG Urine clarity determination CLEAR NRG Urine pH measurement by test strip 8 5-9 Specific gravity of urine by test strip 1.010 1.016-1.022 Urine protein assay by test strip, semi-quantitative [...] sediment leukocyte count by microscopy (number/high power field) NONE NRG Bacteria detection in urine sediment [...] Automated erythrocyte mean corpuscular hemoglobin concentration measurement (mass/volume) 34 g/dL 32-36 Automated erythrocyte distribution width ratio 13.6 % 10.0- 14.5 Automated blood platelet count (count/volume) 288 10*3/uL [...] Blood monocytes automated count (number/volume) 0.6 10*3 0.0- 1.0 Automated eosinophil count 0.2 10*3/uL 0.0-0.3 Automated [...] Serum or plasma aspartate aminotransferase measurement (enzymatic activity/volume) 26 U/L 5-34 Serum or plasma alanine aminotransferase measurement (enzymatic activity/volume) 18 U/L 0-55 Serum or plasma protein measurement (mass/volume) 7.7 g/dL 6.4-8.2 Serum or plasma albumin measurement (mass/volume) 4.5 g/dL 3.2-4.5 Serum or plasma amylase measurement (enzymatic activity/volume) - 08/29/17 09:47 Serum or plasma amylase measurement (enzymatic activity/volume) 89 U/L 25-125 Lipase - 08/29/17 09:47 Lipase 46 U/L 8-78 Complete urinalysis with reflex to culture - 09/08/17 08:37 Urine color determination YELLOW NRG Urine clarity determination CLEAR NRG Urine pH measurement by test strip 6.5 5-9 Specific gravity of urine by test strip 1.010 1.016-1.022 Urine protein assay by test strip, semi-quantitative [...] sediment leukocyte count by microscopy (number/high power field) NONE NRG Bacteria detection in urine sediment [...] Automated erythrocyte mean corpuscular hemoglobin concentration measurement (mass/volume) 34 g/dL 32-36 Automated erythrocyte distribution width ratio 13.5 % 10.0- 14.5 Automated blood platelet count (count/volume) 264 10*3/uL [...] Blood monocytes automated count (number/volume) 0.5 10*3 0.0- 1.0 Automated eosinophil count 0.1 10*3/uL 0.0-0.3 Automated [...] Serum or plasma aspartate aminotransferase measurement (enzymatic activity/volume) 21 U/L 5-34 Serum or plasma alanine aminotransferase measurement (enzymatic activity/volume) 15 U/L 0-55 Serum or plasma protein measurement (mass/volume) 7.6 g/dL 6.4-8.2 Serum or plasma albumin measurement (mass/volume) 4.4 g/dL 3.2-4.5 Complete blood count (CBC) with automated white blood cell (WBC) differential - 12/14/17 09:52 Blood leukocytes automated count (number/volume) 9.5 10*3/uL 4.3-11.0 Blood erythrocytes automated count (number/volume) 4.66 10*6/uL 4.35-5.85 Venous blood hemoglobin measurement (mass/volume) 14.5 g/dL 13.3-17.7 Blood hematocrit (volume fraction) 43 % 40-54 Automated erythrocyte mean corpuscular volume 92 [foz_us] 80-99 Automated erythrocyte mean corpuscular hemoglobin (mass per erythrocyte) 31 pg 25-34 Automated erythrocyte mean corpuscular hemoglobin concentration measurement (mass/volume) 34 g/dL 32-36 Automated erythrocyte distribution width ratio 13.1 % 10.0- 14.5 Automated blood platelet count (count/volume) 276 10*3/uL 130-400 Automated blood platelet mean volume measurement 8.4 [foz_us] 7.4-10.4 Automated blood neutrophils/100 leukocytes 65 % 42-75 Automated blood lymphocytes/100 leukocytes 25 % 12-44 Blood monocytes/100 leukocytes 8 % 0-12 Automated blood eosinophils/100 leukocytes 2 % 0-10 Automated blood basophils/100 leukocytes 1 % 0-10 Blood neutrophils automated count (number/volume) 6.2 10*3 1.8-7.8 Blood lymphocytes automated count (number/volume) 2.3 10*3 1.0-4.0 Blood monocytes automated count (number/volume) 0.8 10*3 0.0- 1.0 Automated eosinophil count 0.2 10*3/uL 0.0-0.3 Automated blood basophil count (count/volume) 0.1 10*3/uL 0.0-0.1 PT panel in platelet poor plasma by coagulation assay - 12/14/17 09:52 Prothrombin time (PT) in platelet poor plasma by coagulation assay 13.8 s 12.2-14.7 INR in platelet poor plasma or blood by coagulation assay 1.1 0.8-1.4 Activated partial thromboplastin time (aPTT) in platelet poor plasma bycoagulation assay - 12/14/17 09:52 Activated partial thromboplastin time (aPTT) in platelet poor plasma bycoagulation assay 31 s 24-35 Comprehensive metabolic panel - 12/14/17 09:52 Serum or plasma sodium measurement (moles/volume) 138 mmol/L 135-145 Serum or plasma potassium measurement (moles/volume) 4.3 mmol/L 3.6-5.0 Serum or plasma chloride measurement (moles/volume) 102 mmol/L 98-107 Carbon dioxide 27 mmol/L 21-32 Serum or plasma anion gap determination (moles/volume) 9 mmol/L 5-14 Serum or plasma urea nitrogen measurement (mass/volume) 15 mg/dL 7-18 Serum or plasma creatinine measurement (mass/volume) 0.92 mg/dL 0.60-1.30 Serum or plasma urea nitrogen/creatinine mass ratio 16 NRG Serum or plasma creatinine measurement with calculation of estimated glomerular filtration rate > NRG Serum or plasma glucose measurement (mass/volume) 84 mg/dL 70-105 Serum or plasma calcium measurement (mass/volume) 9.4 mg/dL 8.5-10.1 Serum or plasma total bilirubin measurement (mass/volume) 0.5 mg/dL 0.1-1.0 Serum or plasma alkaline phosphatase measurement (enzymatic activity/volume) 52 U/L 40-136 Serum or plasma aspartate aminotransferase measurement (enzymatic activity/volume) 22 U/L 5-34 Serum or plasma alanine aminotransferase measurement (enzymatic activity/volume) 14 U/L 0-55 Serum or plasma protein measurement (mass/volume) 7.0 g/dL 6.4-8.2 Serum or plasma albumin measurement (mass/volume) 3.9 g/dL 3.2-4.5 Magnesium - 12/14/17 09:52 Magnesium 2.0 mg/dL 1.8-2.4 Serum or plasma lithium measurement (moles/volume) - 12/14/17 09:52 BNP level 11.5 pg/mL <100.0 Serum or plasma troponin i.cardiac measurement (mass/volume) - 12/14/17 09:52 Serum or plasma troponin i.cardiac measurement (mass/volume) < ng/mL <0.30 Serum or plasma thyrotropin measurement by detection limit <=0.05 miu/l (units/volume) - 12/14/17 09:52 Serum or plasma thyrotropin measurement by detection limit <=0.05 miu/l (units/volume) 0.85 u[iU]/mL 0.35-4.94 Complete urinalysis with reflex to culture - 12/14/17 10:00 Urine color determination YELLOW NRG Urine clarity determination CLEAR NRG Urine pH measurement by test strip 6.5 5-9 Specific gravity of urine by test strip 1.010 1.016-1.022 Urine protein assay by test strip, semi-quantitative [...] sediment leukocyte count by microscopy (number/high power field) RARE NRG Bacteria detection in urine sediment by light microscopy NEGATIVE NRG Squamous epithelial cells detection in urine sediment by light microscopy RARE NRG Crystals detection in urine sediment by light microscopy NONE NRG Casts detection in urine sediment by light microscopy NONE NRG Mucus detection in urine sediment by light microscopy NEGATIVE NRG Complete urinalysis with reflex to culture NO NRG Renal epithelial cells detection in urine sediment by light microscopy NONE NRG Complete blood count (CBC) with automated white blood cell (WBC) differential - 09/14/18 08:35 Blood leukocytes automated count (number/volume) 8.6 10*3/uL 4.3-11.0 Blood erythrocytes automated count (number/volume) 5.12 10*6/uL 4.35-5.85 Venous blood hemoglobin measurement (mass/volume) 16.1 g/dL 13.3-17.7 Blood hematocrit (volume fraction) 48 % 40-54 Automated erythrocyte mean corpuscular volume 94 [foz_us] 80-99 Automated erythrocyte mean corpuscular hemoglobin (mass per erythrocyte) 31 pg 25-34 Automated erythrocyte mean corpuscular hemoglobin concentration measurement (mass/volume) 34 g/dL 32-36 Automated erythrocyte distribution width ratio 13.1 % 10.0- 14.5 Automated blood platelet count (count/volume) 274 10*3/uL 130-400 Automated blood platelet mean volume measurement 8.5 [foz_us] 7.4-10.4 Automated blood neutrophils/100 leukocytes 55 % 42-75 Automated blood lymphocytes/100 leukocytes 33 % 12-44 Blood monocytes/100 leukocytes 10 % 0-12 Automated blood eosinophils/100 leukocytes 2 % 0-10 Automated blood basophils/100 leukocytes 0 % 0-10 Blood neutrophils automated count (number/volume) 4.7 10*3 1.8-7.8 Blood lymphocytes automated count (number/volume) 2.9 10*3 1.0-4.0 Blood monocytes automated count (number/volume) 0.8 10*3 0.0- 1.0 Automated eosinophil count 0.2 10*3/uL 0.0-0.3 Automated blood basophil count (count/volume) 0.0 10*3/uL 0.0-0.1 Comprehensive metabolic panel - 09/14/18 08:35 Serum or plasma sodium measurement (moles/volume) 137 mmol/L 135-145 Serum or plasma potassium measurement (moles/volume) 4.3 mmol/L 3.6-5.0 Serum or plasma chloride measurement (moles/volume) 101 mmol/L 98-107 Carbon dioxide 28 mmol/L 21-32 Serum or plasma anion gap determination (moles/volume) 8 mmol/L 5-14 Serum or plasma urea nitrogen measurement (mass/volume) 14 mg/dL 7-18 Serum or plasma creatinine measurement (mass/volume) 0.91 mg/dL 0.60-1.30 Serum or plasma urea nitrogen/creatinine mass ratio 15 NRG Serum or plasma creatinine measurement with calculation of estimated glomerular filtration rate > NRG Serum or plasma glucose measurement (mass/volume) 82 mg/dL 70-105 Serum or plasma calcium measurement (mass/volume) 9.6 mg/dL 8.5-10.1 Serum or plasma total bilirubin measurement (mass/volume) 0.4 mg/dL 0.1-1.0 Serum or plasma alkaline phosphatase measurement (enzymatic activity/volume) 57 U/L 40-136 Serum or plasma aspartate aminotransferase measurement (enzymatic activity/volume) 28 U/L 5-34 Serum or plasma alanine aminotransferase measurement (enzymatic activity/volume) 22 U/L 0-55 Serum or plasma protein measurement (mass/volume) 7.6 g/dL 6.4-8.2 Serum or plasma albumin measurement (mass/volume) 4.6 g/dL 3.2-4.5 Complete urinalysis with reflex to culture - 09/14/18 09:40 Urine color determination YELLOW NRG Urine clarity determination CLEAR NRG Urine pH measurement by test strip 7 5-9 Specific gravity of urine by test strip 1.005 1.016-1.022 Urine protein assay by test strip, semi-quantitative NEGATIVE NEGATIVE Urine glucose detection by automated test strip NEGATIVE NEGATIVE Erythrocytes detection in urine sediment by light microscopy 5+ NEGATIVE Urine ketones detection by automated test strip NEGATIVE NEGATIVE Urine nitrite detection by test strip NEGATIVE NEGATIVE Urine total bilirubin detection by test strip NEGATIVE NEGATIVE Urine urobilinogen measurement by automated test strip (mass/volume) NORMAL NORMAL Urine leukocyte esterase detection by dipstick 1+ NEGATIVE Automated urine sediment erythrocyte count by microscopy (number/high power field) [HPF] NRG Automated urine sediment leukocyte count by microscopy (number/high power field) NONE NRG Bacteria detection in urine sediment [...] automated white blood cell (WBC) differential - 11/09/18 14:55 Blood leukocytes automated count (number/volume) 7.6 10*3/uL 4.3-11.0 Blood erythrocytes automated count (number/volume) 4.61 10*6/uL 4.35-5.85 Venous blood hemoglobin measurement (mass/volume) 14.3 g/dL 13.3-17.7 Blood hematocrit (volume fraction) 43 % 40-54 Automated erythrocyte mean corpuscular volume 94 [foz_us] 80-99 Automated erythrocyte mean corpuscular hemoglobin (mass per erythrocyte) 31 pg 25-34 Automated erythrocyte mean corpuscular hemoglobin concentration measurement (mass/volume) 33 g/dL 32-36 Automated erythrocyte distribution width ratio 13.3 % 10.0- 14.5 Automated blood platelet count (count/volume) 270 10*3/uL 130-400 Automated blood platelet mean volume measurement 8.2 [foz_us] 7.4-10.4 Automated blood neutrophils/100 leukocytes 56 % 42-75 Automated blood lymphocytes/100 leukocytes 31 % 12-44 Blood monocytes/100 leukocytes 11 % 0-12 Automated blood eosinophils/100 leukocytes 2 % 0-10 Automated blood basophils/100 leukocytes 1 % 0-10 Blood neutrophils automated count (number/volume) 4.2 10*3 1.8-7.8 Blood lymphocytes automated count (number/volume) 2.3 10*3 1.0-4.0 Blood monocytes automated count (number/volume) 0.8 10*3 0.0- 1.0 Automated eosinophil count 0.2 10*3/uL 0.0-0.3 Automated blood basophil count (count/volume) 0.1 10*3/uL 0.0-0.1 Comprehensive metabolic panel - 11/09/18 14:55 Serum or plasma sodium measurement (moles/volume) 138 mmol/L 135-145 Serum or plasma potassium measurement (moles/volume) 4.2 mmol/L 3.6-5.0 Serum or plasma chloride measurement (moles/volume) 104 mmol/L 98-107 Carbon dioxide 27 mmol/L 21-32 Serum or plasma anion gap determination (moles/volume) 7 mmol/L 5-14 Serum or plasma urea nitrogen measurement (mass/volume) 14 mg/dL 7-18 Serum or plasma creatinine measurement (mass/volume) 0.90 mg/dL 0.60-1.30 Serum or plasma urea nitrogen/creatinine mass ratio 16 NRG Serum or plasma creatinine measurement with calculation of estimated glomerular filtration rate > NRG Serum or plasma glucose measurement (mass/volume) 89 mg/dL 70-105 Serum or plasma calcium measurement (mass/volume) 9.1 mg/dL 8.5-10.1 Serum or plasma total bilirubin measurement (mass/volume) 0.3 mg/dL 0.1-1.0 Serum or plasma alkaline phosphatase measurement (enzymatic activity/volume) 58 U/L 40-136 Serum or plasma aspartate aminotransferase measurement (enzymatic activity/volume) 18 U/L 5-34 Serum or plasma alanine aminotransferase measurement (enzymatic activity/volume) 16 U/L 0-55 Serum or plasma protein measurement (mass/volume) 7.2 g/dL 6.4-8.2 Serum or plasma albumin measurement (mass/volume) 4.3 g/dL 3.2-4.5 CALCIUM CORRECTED 8.9 mg/dL 8.5-10.1 Magnesium - 11/09/18 14:55 Magnesium 1.9 mg/dL 1.8-2.4 Serum or plasma troponin i.cardiac measurement (mass/volume) - 11/09/18 14:55 Serum or plasma troponin i.cardiac measurement (mass/volume) < ng/mL <0.028 Serum or plasma lithium measurement (moles/volume) - 11/09/18 14:55 BNP level < pg/mL <100.0 THYROID STIMULATING HORMONE - 11/09/18 14:55 THYROID STIMULATING HORMONE 0.80 u[iU]/mL 0.35-4.94 Serum or plasma thyroxine (T4) free measurement (mass/volume) - 11/09/18 14:55 Serum or plasma thyroxine (T4) free measurement (mass/volume) 0.85 ng/dL 0.70-1.48 Complete urinalysis with reflex to culture - 11/09/18 16:11 Urine color determination YELLOW NRG Urine clarity determination CLEAR NRG Urine pH measurement by test strip 6.5 5-9 Specific gravity of urine by test strip 1.010 1.016-1.022 Urine protein assay by test strip, semi-quantitative [...] sediment leukocyte count by microscopy (number/high power field) NONE NRG Bacteria detection in urine sediment by light microscopy NEGATIVE NRG Crystals detection in urine sediment by light microscopy NONE NRG Casts detection in urine sediment by light microscopy NONE NRG Mucus detection in urine sediment by light microscopy NEGATIVE NRG Complete urinalysis with reflex to culture NO NRG Complete blood count (CBC) with automated white blood cell (WBC) differential - 11/13/18 10:58 Blood leukocytes automated count (number/volume) 7.5 10*3/uL 4.3-11.0 Blood erythrocytes automated count (number/volume) 4.92 10*6/uL 4.35-5.85 Venous blood hemoglobin measurement (mass/volume) 14.9 g/dL 13.3-17.7 Blood hematocrit (volume fraction) 46 % 40-54 Automated erythrocyte mean corpuscular volume 94 [foz_us] 80-99 Automated erythrocyte mean corpuscular hemoglobin (mass per erythrocyte) 30 pg 25-34 Automated erythrocyte mean corpuscular hemoglobin concentration measurement (mass/volume) 32 g/dL 32-36 Automated erythrocyte distribution width ratio 13.3 % 10.0- 14.5 Automated blood platelet count (count/volume) 286 10*3/uL 130-400 Automated blood platelet mean volume measurement 8.2 [foz_us] 7.4-10.4 Automated blood neutrophils/100 leukocytes 69 % 42-75 Automated blood lymphocytes/100 leukocytes 21 % 12-44 Blood monocytes/100 leukocytes 8 % 0-12 Automated blood eosinophils/100 leukocytes 2 % 0-10 Automated blood basophils/100 leukocytes 1 % 0-10 Blood neutrophils automated count (number/volume) 5.2 10*3 1.8-7.8 Blood lymphocytes automated count (number/volume) 1.6 10*3 1.0-4.0 Blood monocytes automated count (number/volume) 0.6 10*3 0.0- 1.0 Automated eosinophil count 0.1 10*3/uL 0.0-0.3 Automated blood basophil count (count/volume) 0.0 10*3/uL 0.0-0.1 Whole blood basic metabolic panel - 11/13/18 10:58 Serum or plasma sodium measurement (moles/volume) 137 mmol/L 135-145 Serum or plasma potassium measurement (moles/volume) 4.3 mmol/L 3.6-5.0 Serum or plasma chloride measurement (moles/volume) 102 mmol/L 98-107 Carbon dioxide 27 mmol/L 21-32 Serum or plasma anion gap determination (moles/volume) 8 mmol/L 5-14 Serum or plasma urea nitrogen measurement (mass/volume) 8 mg/dL 7-18 Serum or plasma creatinine measurement (mass/volume) 0.91 mg/dL 0.60-1.30 Serum or plasma urea nitrogen/creatinine mass ratio 9 NRG Serum or plasma creatinine measurement with calculation of estimated glomerular filtration rate > NRG Serum or plasma glucose measurement (mass/volume) 95 mg/dL 70-105 Serum or plasma calcium measurement (mass/volume) 9.7 mg/dL 8.5-10.1 Complete urinalysis with reflex to culture - 11/13/18 10:58 Urine color determination RED NRG Urine clarity determination VERY CLOUDY NRG Urine pH measurement by test strip 7 5-9 Specific gravity of urine by test strip 1.010 1.016-1.022 Urine protein assay by test strip, semi-quantitative 3+ NEGATIVE Urine glucose detection by automated test strip NEGATIVE NEGATIVE Erythrocytes detection in urine sediment by light microscopy 5+ NEGATIVE Urine ketones detection by automated test strip NEGATIVE NEGATIVE Urine nitrite detection by test strip NEGATIVE NEGATIVE Urine total bilirubin detection by test strip NEGATIVE NEGATIVE Urine urobilinogen measurement by automated test strip (mass/volume) NORMAL NORMAL Urine leukocyte esterase detection by dipstick 2+ NEGATIVE Automated urine sediment erythrocyte count by microscopy (number/high power field) TNTC NRG Automated urine sediment leukocyte count by microscopy (number/high power field) RARE NRG Bacteria detection in urine sediment by light microscopy TRACE NRG Squamous epithelial cells detection in urine sediment by light microscopy NONE NRG Crystals detection in urine sediment by light microscopy NONE NRG Casts detection in urine sediment by light microscopy NONE NRG Mucus detection in urine sediment by light microscopy NEGATIVE NRG Complete urinalysis with reflex to culture YES NRG Renal epithelial cells detection in urine sediment by light microscopy RARE NRG Encounters ACCT No. Visit Date/Time Discharge Status Pt. Type Provider Facility Loc./Unit Complaint [id number] 11/09/2018 14:17:00 11/09/2018 17:06:00 DIS Outpatient DWAYNE WANG APRN [facility] ER LEG/FEET SWELLING;PAIN [id number] 09/14/2018 08:27:00 09/14/2018 11:40:00 DIS Outpatient SHALA MORALEZ MD [facility] ER SOA;WEAKNESS [id number] 12/14/2017 09:26:00 12/14/2017 13:02:00 DIS Emergency GARRETT ADKINS DO [facility] ER LIGHT HEADED,SOB [id number] 11/24/2017 00:09:00 11/24/2017 23:59:59 CLS Preadmit CARLOS ODOM DO [facility] LAB C34.2 [id number] 08/25/2017 09:18:00 11/23/2017 00:01:00 DIS Outpatient CARLOS ODOM DO [facility] LAB C34.2 [id number] 09/15/2017 07:52:00 09/15/2017 09:45:00 DIS Emergency BRYAN LOVE, SAMIA Barr [facility] ER HEMMORHOID BLEEDING [id number] 09/08/2017 08:31:00 09/08/2017 10:36:00 DIS Emergency AYLEEN LOVE, FERNANDO Montilla [facility] ER LEFT HIP PAIN,DIZZINESS [id number] 08/29/2017 07:05:00 08/29/2017 10:13:00 DIS Emergency GARRETT ADKINS DO [facility] ER R SIDE LEG PAIN/PREV SURGERY [id number] 03/02/2017 07:02:00 03/02/2017 07:21:00 DIS Emergency BRYAN LOVE, SAMIA Barr [facility] ER TICK ON PRIVATE PARTS [id number] 02/01/2017 11:00:00 02/01/2017 23:59:59 CLS Preadmit PABLO MARIE DO [facility] ENDO GI BLEED [id number] 01/28/2017 04:55:00 01/28/2017 10:25:00 DIS Emergency ROBYN LOVE, JEREMY Tavarez [facility] ER SOB,COUGH [id number] 01/27/2017 05:46:00 01/27/2017 14:06:00 DIS Outpatient PABLO MARIE DO [facility] PREOP GI BLEED [id number] 01/05/2017 10:45:00 01/05/2017 23:59:59 CLS Preadmit CAMILO EDWARDS [facility] RAD AAA REPAIR [id number] 01/03/2017 09:33:00 01/04/2017 12:25:00 DIS Inpatient JACQUELINE LOVE, EDGAR Rucker [facility] 4TH LOWER GI BLEED,LLQ ABD PAIN [id number] 07/20/2016 08:53:00 07/20/2016 23:59:59 CLS Outpatient KACI ASHBY MD [facility] RAD ABDOMINAL AORTIC ANEURYSM [id number] 04/24/2016 19:11:00 04/26/2016 12:50:00 DIS Inpatient NIDIA WILEY MD [facility] ICU CHEST PAIN [id number] 04/21/2016 09:03:00 04/21/2016 23:59:59 CLS Outpatient KIKI NORRISCEY Linda [employer] [facility] LAB POST BLOOD TRANSFUSION [id number] 04/09/2016 09:20:00 04/09/2016 12:45:00 DIS Emergency DWAYNE WANG [employer] [facility] ER ABD PAIN/RECTAL BLEEDING [id number] 08/12/2015 13:02:00 08/12/2015 14:54:00 DIS Emergency DWAYNE WANG [employer] [facility] ER RIGHT HAND INJURY [id number] 01/25/2015 09:50:00 01/25/2015 12:39:00 DIS Emergency KIRT LOVE, SHALA Hernandez [facility] ER RECTAL BLEEDING [id number] 06/12/2014 16:45:00 06/12/2014 23:59:59 CLS Emergency BRYAN LOVE, SAMIA Barr [facility] ER CHEST WALL PAIN,COUGH,SOA [id number] 06/22/2013 03:40:00 06/22/2013 04:59:00 DIS Emergency AZAR LOVE, SEUN Masters [facility] ER VOMITING [id number] 11/13/2018 08:49:00 ACT Emergency DWAYNE WANG [employer] [facility] ER CATHETER ISSUES [id number] 01/25/2015 09:50:00 Document Registration [id number] 08/21/2011 01:37:00 Document Registration [id number] 04/25/2010 08:20:00 Document Registration [id number] 10/27/2017 14:30:00 10/27/2017 23:59:59 CLS [facility]
[2018-11-14] MEDS ORDERED: CYCLOBENZAPRINE 10 MG (FLEXERIL) TAB PO STA (21:26)
--- NOTE | 2018-11-14 21:51 | Diagnostic Imaging Report ---
INDICATION: Cough and congestion. Right-sided rib pain.. TECHNIQUE: Two view chest at 9:36 PM CORRELATION STUDY: 11/09/2018 FINDINGS: The heart size, mediastinal configuration and pulmonary vasculature are within normal limits. Lung barillas are mildly hyperinflated but overall clear. No consolidating infiltrate. Surgical changes with suture line right infrahilar lung field. Old healed right posterior sixth rib fracture. IMPRESSION: 1. No radiographic evidence for acute abnormality of the chest. Dictated by: Dictated on workstation # [id number]
--- NOTE | 2018-11-14 21:52 | Diagnostic Imaging Report ---
INDICATION: Cough and congestion, right rib pain.. TECHNIQUE: 3 views of the right ribs at 9:37 PM. CORRELATION STUDY: None FINDINGS: Old healed right posterior sixth rib fracture. No acute displaced rib fracture. Right lung clear without evidence for infiltrate, effusion or pneumothorax. Surgical changes with suture line in the right infrahilar region. There is partial visualization of the aortic stent graft. IMPRESSION: 1. Negative for acute displaced right rib fracture. Dictated by: Dictated on workstation # [id number]
[2018-11-14] MEDS ORDERED: CYCL10TA9 PO (22:26)
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
[2018-11-14 22:44] VITALS: BP 122/73
== END 2018-11-14 22:46 | disposition home or self-care (01) ==
LOC: EDUNIT# 19:44 → ER 19:45
DX: S23.41XA Sprain of ribs, initial encounter (principal); I10 Essential (primary) hypertension; Z87.19 Personal history of other diseases of the digestive system; Z87.820 Personal history of traumatic brain injury; Z77.22 Contact with and (suspected) exposure to environmental tobacco smoke (acute) (chronic); Z98.890 Other specified postprocedural states; Z90.89 Acquired absence of other organs; Z90.2 Acquired absence of lung [part of]; Z85.118 Personal history of other malignant neoplasm of bronchus and lung; X58.XXXA Exposure to other specified factors, initial encounter
CPT/HCPCS: 71046; 71100

== ENCOUNTER 2019-02-27 09:31 | Emergency (ER) | payer OTHER ==
[~2019-02-27] VITALS: Ht 182 cm; Wt 83.6 kg
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
[2019-02-27] MEDS ORDERED: MECLIZINE 25 MG (ANTIVERT) TAB PO ONE (10:45)
[2019-02-27 11:15] LABS: BASOPHILS % (AUTO) 1 % (0-10); EOSINOPHILS # (AUTO) 0.2 10^3/uL (0.0-0.3); EOSINOPHILS % (AUTO) 3 % (0-10); HEMATOCRIT 48 % (40-54); LYMPHOCYTES # (AUTO) 2.4 X 10^3 (1.0-4.0); LYMPHOCYTES % (AUTO) 34 % (12-44); MEAN CORPUSCULAR HEMOGLOBIN 31 PG (25-34); MEAN CORPUSCULAR HGB CONC 33 G/DL (32-36); MEAN CORPUSCULAR VOLUME 92 FL (80-99); MEAN PLATELET VOLUME 8.5 FL (7.4-10.4); MONOCYTES # (AUTO) 0.6 X 10^3 (0.0-1.0); MONOCYTES % (AUTO) 9 % (0-12); NEUTROPHILS # (AUTO) 3.8 X 10^3 (1.8-7.8); NEUTROPHILS % (AUTO) 54 % (42-75); PLATELET COUNT 262 10^3/uL (130-400); RED CELL DISTRIBUTION WIDTH 13.7 % (10.0-14.5)
[2019-02-27 11:30] LABS: PROTHROMBIN TIME PATIENT 13.5 SEC (12.2-14.7)
[2019-02-27 11:36] LABS: ALANINE AMINOTRANSFERASE 16 U/L (0-55); ALBUMIN 4.4 GM/DL (3.2-4.5); ALKALINE PHOSPHATASE 62 U/L (40-136); BILIRUBIN,TOTAL 0.2 MG/DL (0.1-1.0); BUN/CREATININE RATIO 10; CALCIUM 9.2 MG/DL (8.5-10.1); CARBON DIOXIDE 28 MMOL/L (21-32); CHLORIDE 105 MMOL/L (98-107); CREATININE SERUM 0.98 MG/DL (0.60-1.30); GFR ESTIMATED > 60; GLUCOSE 85 MG/DL (70-105); POTASSIUM 4.4 MMOL/L (3.6-5.0); SODIUM 139 MMOL/L (135-145); TOTAL PROTEIN 7.6 GM/DL (6.4-8.2)
[2019-02-27] MEDS ORDERED: IOHEXOL 350 MG/ML 100 ML (OMNIPAQUE 350) VIAL IV ONE (11:45)
[2019-02-27] MEDS ORDERED: HOLD METFORMIN - RECEIVED CONTRAST 20 ML VIAL IV SCH (11:45)
[2019-02-27] MEDS ORDERED: NS 100 ML (IVPB) BAG IV ONE (11:45)
--- NOTE | 2019-02-27 12:44 | Diagnostic Imaging Report ---
PROCEDURE: CT angiography of the head and CT angiography of the neck with and without contrast. TECHNIQUE: Contiguous noncontrast images were obtained from the skull base through the vertex. After intravenous contrast administration, helical CT angiography of the neck was performed. Source data was reformatted into 3D MIP projections. Delayed post contrast acquisition was also obtained. Auto Exposure Controls were utilized during the CT exam to meet ALARA standards for radiation dose reduction. INDICATION: Headache and dizziness. FINDINGS: Precontrast portion of the study demonstrates the ventricles and sulci to be within normal limits. No sulcal effacement or midline shift is identified. No acute intra-axial or extra-axial hemorrhage is detected. Cisterns are patent. Visualized paranasal sinuses are clear. Delayed images are without evidence of abnormal enhancing lesion. CT angiographic portion of the exam demonstrates a three-vessel branching pattern to the aortic arch. Common carotid arteries are patent. There is minimal calcified plaque at the carotid bifurcations bilaterally. There is some calcified plaque at the carotid siphons bilaterally. Internal carotid arteries are otherwise unremarkable. Anterior, middle and posterior cerebral arteries appear to be widely patent. No filling defect to suggest thromboembolism is seen. No definite intracranial stenosis or evidence of aneurysm is identified. IMPRESSION: Essentially unremarkable CT angiogram of the head and neck. Dictated by: Dictated on workstation # [id number]
--- NOTE | 2019-02-27 12:46 | NUR ---
TO ROOM REPORTS THAH HE THINKS HE IS FEEING BETTER.
[2019-02-27] MEDS ORDERED: MECL-106 PO (12:47)
[2019-02-27 13:02] VITALS: BP 137/86
== END 2019-02-27 13:01 | disposition home or self-care (01) ==
LOC: ER 09:31 → EDUNIT# 09:31 → ER 13:01
DX: R42 Dizziness and giddiness (principal); I10 Essential (primary) hypertension; F17.210 Nicotine dependence, cigarettes, uncomplicated; Z87.820 Personal history of traumatic brain injury; Z90.89 Acquired absence of other organs; Z85.118 Personal history of other malignant neoplasm of bronchus and lung
CPT/HCPCS: 36415; 70496; 70498; 80053; 85025; 85610; 85730

== ENCOUNTER → 2019-05-02 | Outpatient (CLI) | payer MEDICARE, OTHER ==
[~2019-05-02] MED LIST changes: +GADOBUTROL 10 MMOL/10 ML (GADAVIST) VIAL IV ONE; +MECL-106 PO
[2019-05-02 14:51] LABS: BUN/CREATININE RATIO 11; CREATININE SERUM 0.91 MG/DL (0.60-1.30); GFR ESTIMATED > 60
--- NOTE | 2019-05-02 15:57 | Diagnostic Imaging Report ---
PROCEDURE: MR imaging of the brain with and without contrast. TECHNIQUE: Multiplanar, multisequence MR imaging of the brain was performed with and without contrast. INDICATION: Headache. COMPARISON: CTA head and neck 02/27/2019. FINDINGS: Moderate generalized cerebral and cerebellar parenchymal volume loss. Moderate nonspecific T2 hyperintensities in the supratentorial white matter. No abnormal intracranial enhancement. No restricted water diffusion or hemosiderin deposition. Normal morphology including the major midline structures, sella, posterior fossa and cerebellopontine angle. No hydrocephalus or extra-axial fluid collections. Normal arterial intracranial flow voids. The orbits are unremarkable on this nondedicated exam. The paranasal sinuses and mastoids are clear. Normal bone marrow signal. IMPRESSION: Age-appropriate MRI of the brain. No acute findings. Dictated by: Dictated on workstation # [id number]
== END ==
LOC: RAD 14:20
PROVIDERS: ATTEND Family Medicine
DX: R51 Headache (principal); R42 Dizziness and giddiness
CPT/HCPCS: 36415; 70553; 82565; 84520

== ENCOUNTER → 2019-06-20 | Outpatient (CLI) | payer OTHER, MEDICARE ==
[~2019-06-20] MED LIST changes: -GADOBUTROL 10 MMOL/10 ML (GADAVIST) VIAL IV ONE; -IBUP-2055 PO; +IBUP-2473 PO; -TAMS0.4C98 PO; +TMSL.4C PO
--- NOTE | 2019-06-20 08:09 | Diagnostic Imaging Report ---
PROCEDURE: CT abdomen and pelvis without contrast. TECHNIQUE: Multiple contiguous axial images were obtained through the abdomen and pelvis without the use of intravenous contrast. Auto Exposure Controls were utilized during the CT exam to meet ALARA standards for radiation dose reduction. INDICATION: Hematuria. Correlation is made with prior CT from 09/08/2017. FINDINGS: The lung bases are clear. The liver and gallbladder are unremarkable. No biliary ductal dilatation is seen. The pancreas and spleen are unremarkable. No adrenal mass is detected. No renal calculi or hydronephrosis is identified. No definite ureteral or bladder calculi are seen. Aorta contains a stent graft. The aorta appears to be stable at 3.7 cm AP diameter. The bowel loops are normal caliber. There is no obstruction. No free fluid or fluid collection is seen. Prostate is unremarkable. There are surgical clips in the right groin. 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 IMPRESSION: 1. Stable CT abdomen and pelvis without contrast when compared with exam from 09/08/2017. No urinary tract calculi or obstruction is identified. 2. Stable treated abdominal aortic aneurysm. Dictated by: Dictated on workstation # [id number]
== END ==
LOC: RAD 07:21
PROVIDERS: ATTEND Urology
DX: R31.29 Other microscopic hematuria (principal)
CPT/HCPCS: 74176

== ENCOUNTER 2019-11-08 08:14 | Emergency (ER) | payer OTHER, MEDICARE ==
[~2019-11-08] VITALS: Ht 185.4 cm; Wt 83.6 kg
[~2019-11-08 08:14] MED LIST changes: -MECL-106 PO; +MECL-149 PO
[2019-11-08 08:29] VITALS: BP 136/70
--- NOTE | 2019-11-08 08:34 | ED Lower Extremity ---
General Stated Complaint: LEG SWELLING History of Present Illness Date Seen by Provider: Nov 08, 2019 Time Seen by Provider: 08:34 Initial Comments 64-year-old male presents with bilateral leg swelling. Reports his been going on for at least a week. He had some Lasix but ran out 3-4 days ago hasn't taken anything since then. He reports that he gets recurrent leg swelling. That there moderately tender. He denies any chest pain, shortness of breath or any other systemic complaints. Allergies and Home Medications Allergies Coded Allergies: No Known Drug Allergies (Unverified , 11/13/18) Home Medications Cefdinir 300 Mg Capsule, 300 MG PO BID Prescribed by: DWAYNE WANG on 11/09/18 1628 Cyclobenzaprine HCl 10 Mg Tablet, 10 MG PO Q8H PRN for SPASMS Prescribed by: MYNOR SMITH on 11/14/18 2226 Furosemide 40 Mg Tablet, 40 MG PO BIDPC Prescribed by: ARAM KUMAR on 11/08/19 0951 Meclizine HCl 25 Mg Tablet, 25 MG PO TID Prescribed by: DWAYNE WANG on 02/27/19 1247 Tamsulosin HCl 0.4 Mg Cap, 0.4 MG PO DAILY Prescribed by: DWAYNE WANG on 11/09/18 1628 Patient Home Medication List Home Medication List Reviewed: Yes Review of Systems Constitutional: No chills, No fever EENTM: see HPI Respiratory: No cough, No short of breath Cardiovascular: No chest pain; edema; No palpitations Gastrointestinal: no symptoms reported Genitourinary: no symptoms reported Musculoskeletal: see HPI Skin: see HPI Past Atzprkr-Hetefs-Netjow Hx Past Med/Social Hx: Reviewed Nursing Past Med/Soc Hx Physical Exam Vital Signs Vital Signs - First Documented 11/08/19 11/08/19 08:29 10:04 Temp 36.8 Pulse 74 Resp 18 B/P (MAP) 136/70 (92) Pulse Ox 96 Capillary Refill : Height, Weight, BMI Height: '" Weight: lbs. oz. 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, alert, normal mood/affect, oriented x 3 Skin: other (mild chronic venous stasis changes) Progress/Results/Core Measures Results/Orders Lab Results Laboratory Tests Test 11/08/19 09:10 11/08/19 09:19 Range/Units White Blood Count 8.3 4.3-11.0 10^3/uL Red Blood Count 4.69 4.35-5.85 10^6/uL Hemoglobin 14.5 13.3-17.7 G/DL Hematocrit 44 40-54 % Mean Corpuscular Volume 93 80-99 FL Mean Corpuscular Hemoglobin 31 25-34 PG Mean Corpuscular Hemoglobin Concent 33 32-36 G/DL Red Cell Distribution Width 13.5 10.0-14.5 % Platelet Count 280 130-400 10^3/uL Mean Platelet Volume 8.4 7.4-10.4 FL Neutrophils (%) (Auto) 68 42-75 % Lymphocytes (%) (Auto) 20 12-44 % Monocytes (%) (Auto) 10 0-12 % Eosinophils (%) (Auto) 2 0-10 % Basophils (%) (Auto) 0 0-10 % Neutrophils # (Auto) 5.7 1.8-7.8 X 10^3 Lymphocytes # (Auto) 1.7 1.0-4.0 X 10^3 Monocytes # (Auto) 0.8 0.0-1.0 X 10^3 Eosinophils # (Auto) 0.1 0.0-0.3 10^3/uL Basophils # (Auto) 0.0 0.0-0.1 10^3/uL Sodium Level 142 135-145 MMOL/L Potassium Level 4.3 3.6-5.0 MMOL/L Chloride Level 104 98-107 MMOL/L Carbon Dioxide Level 28 21-32 MMOL/L Anion Gap 10 5-14 MMOL/L Blood Urea Nitrogen 15 7-18 MG/DL Creatinine 0.95 0.60-1.30 MG/DL Estimat Glomerular Filtration Rate > 60 BUN/Creatinine Ratio 16 Glucose Level 99 70-105 MG/DL Calcium Level 9.1 8.5-10.1 MG/DL Urine Color YELLOW Urine Clarity CLEAR Urine pH 8.0 5-9 Urine Specific [place] 1.010 L 1.016-1.022 Urine Protein NEGATIVE NEGATIVE Urine Glucose (UA) NEGATIVE NEGATIVE Urine Ketones NEGATIVE NEGATIVE Urine Nitrite NEGATIVE NEGATIVE Urine Bilirubin NEGATIVE NEGATIVE Urine Urobilinogen 1.0 < = 1.0 MG/DL Urine Leukocyte Esterase NEGATIVE NEGATIVE Urine RBC (Auto) TRACE-I NEGATIVE Urine RBC RARE /HPF Urine WBC NONE /HPF Urine Squamous Epithelial Cells RARE /HPF Urine Crystals NONE /LPF Urine Bacteria NEGATIVE /HPF Urine Casts NONE /LPF Urine Mucus NEGATIVE /LPF Urine Culture Indicated NO My Orders Orders - KUMAR,ARAM L DO Basic Metabolic Panel (11/08/19 08:40) Cbc With Automated Diff (11/08/19 08:40) Ua Culture If Indicated (11/08/19 08:40) Vital Signs/I&O 11/08/19 11/08/19 08:29 10:04 Temp 36.8 Pulse 74 67 Resp 18 18 B/P (MAP) 136/70 (92) 126/71 Pulse Ox 96 Progress Progress Note : Progress Note Patient with no acute findings on labs. We'll start him on Lasix 40 mg daily. He should follow-up with his primary care provider. I recommended he use compression stockings versus Jaswant wraps. Patient discharged home in stable condition Departure Impression Primary Impression: Edema of both lower legs due to peripheral venous insufficiency Disposition: HOME, SELF-CARE Condition: Stable Departure-Patient Inst. Patient Instructions: Fluid Restricted Diet, Dependent Edema (DC) Add. Discharge Instructions: Jaswant wrap or compression stockings to both lower legs Emergency department focuses on treating and ruling out life-threatening diseases. Whenever possible, a diagnosis is given. However, most patients are given an impression based on their history, physical exam, and workup during your brief time in the ER. Information about probable diagnosis and other educational material has been provided. Please take the time to read and understand this information. It is very important that you follow up with a physician as discussed during the visit today. Failure to adhere to your follow-up instructions may lead to severe disability, injury, or so please make sure to keep your appointments or obtain one as requested. Please keep in mind the emergency department is not designed to your primary care or "family doctor" and nonurgent issues are best evaluated by an outpatient physician Scripts Furosemide (Lasix) 40 Mg Tablet 40 MG PO BIDPC for 5 Days, #5 TAB Prov: KUMAR,ARAM L DO 11/08/19 KUMAR,ARAM L DO Nov 08, 2019 08:34
[2019-11-08 09:19] LABS: BASOPHILS % (AUTO) 0 % (0-10); EOSINOPHILS # (AUTO) 0.1 10^3/uL (0.0-0.3); EOSINOPHILS % (AUTO) 2 % (0-10); HEMATOCRIT 44 % (40-54); HEMOGLOBIN 14.5 G/DL (13.3-17.7); LYMPHOCYTES # (AUTO) 1.7 X 10^3 (1.0-4.0); LYMPHOCYTES % (AUTO) 20 % (12-44); MEAN CORPUSCULAR HEMOGLOBIN 31 PG (25-34); MEAN CORPUSCULAR HGB CONC 33 G/DL (32-36); MEAN CORPUSCULAR VOLUME 93 FL (80-99); MEAN PLATELET VOLUME 8.4 FL (7.4-10.4); MONOCYTES # (AUTO) 0.8 X 10^3 (0.0-1.0); MONOCYTES % (AUTO) 10 % (0-12); NEUTROPHILS # (AUTO) 5.7 X 10^3 (1.8-7.8); NEUTROPHILS % (AUTO) 68 % (42-75); PLATELET COUNT 280 10^3/uL (130-400); RED CELL DISTRIBUTION WIDTH 13.5 % (10.0-14.5); WHITE BLOOD COUNT 8.3 10^3/uL (4.3-11.0)
[2019-11-08 09:25] LABS: BILIRUBIN,URINE NEGATIVE (NEGATIVE); CLARITY,URINE CLEAR; COLOR,URINE YELLOW; GLUCOSE, URINE (UA) NEGATIVE (NEGATIVE); KETONES,URINE NEGATIVE (NEGATIVE); LEUKOCYTE ESTERASE ,URINE NEGATIVE (NEGATIVE); NITRITE,URINE NEGATIVE (NEGATIVE); PROTEIN,URINE NEGATIVE (NEGATIVE)
[2019-11-08 09:34] LABS: CHLORIDE 104 MMOL/L (98-107); POTASSIUM 4.3 MMOL/L (3.6-5.0); SODIUM 142 MMOL/L (135-145)
[2019-11-08 09:35] LABS: CALCIUM 9.1 MG/DL (8.5-10.1); GLUCOSE 99 MG/DL (70-105)
[2019-11-08 09:37] LABS: CARBON DIOXIDE 28 MMOL/L (21-32)
[2019-11-08 09:39] LABS: CREATININE SERUM 0.95 MG/DL (0.60-1.30); GFR ESTIMATED > 60
[2019-11-08 09:40] LABS: BUN/CREATININE RATIO 16
[2019-11-08 09:44] LABS: BACTERIA,URINE NEGATIVE /HPF; RBC,URINE RARE /HPF; SQUAMOUS EPITHELIAL CELL,UR RARE /HPF
[2019-11-08] MEDS ORDERED: FURO-124 PO (09:51)
== END 2019-11-08 10:04 | disposition home or self-care (01) ==
LOC: EDUNIT# 08:14 → ER 08:15
DX: I87.2 Venous insufficiency (chronic) (peripheral) (principal)
CPT/HCPCS: 36415; 80048; 81000; 85025; 99283

== ENCOUNTER 2019-12-25 09:48 | Outpatient (RCR) | payer OTHER ==
[~2019-12-25 09:48] MED LIST changes: +FURO-124 PO
== END 2020-01-31 15:21 | disposition home or self-care (01) ==
PROVIDERS: ATTEND Nurse Practitioner
DX: R60.9 Edema, unspecified (principal); I10 Essential (primary) hypertension; J44.9 Chronic obstructive pulmonary disease, unspecified

== ENCOUNTER 2020-03-18 12:07 | Emergency (ER) | payer MEDICARE, OTHER ==
[~2020-03-18] VITALS: Ht 185.4 cm; Wt 80.7 kg
[2020-03-18] MEDS ORDERED: LACTATED RINGERS 1,000 ML IV ONE (13:06)
[2020-03-18 13:18] LABS: BILIRUBIN,URINE NEGATIVE (NEGATIVE); CLARITY,URINE CLEAR; COLOR,URINE YELLOW; GLUCOSE, URINE (UA) NEGATIVE (NEGATIVE); KETONES,URINE NEGATIVE (NEGATIVE); LEUKOCYTE ESTERASE ,URINE NEGATIVE (NEGATIVE); NITRITE,URINE NEGATIVE (NEGATIVE); PH,URINE 6.5 (5-9); PROTEIN,URINE NEGATIVE (NEGATIVE)
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
[2020-03-18 13:21] LABS: BASOPHILS # (AUTO) 0.1 10^3/uL (0.0-0.1); BASOPHILS % (AUTO) 1 % (0-10); EOSINOPHILS # (AUTO) 0.2 10^3/uL (0.0-0.3); EOSINOPHILS % (AUTO) 2 % (0-10); HEMATOCRIT 48 % (40-54); HEMOGLOBIN 15.8 g/dL (13.3-17.7); LYMPHOCYTES # (AUTO) 2.1 10^3/uL (1.0-4.0); LYMPHOCYTES % (AUTO) 28 % (12-44); MEAN CORPUSCULAR HEMOGLOBIN 30 pg (25-34); MEAN CORPUSCULAR HGB CONC 33 g/dL (32-36); MEAN CORPUSCULAR VOLUME 92 fL (80-99); MEAN PLATELET VOLUME 8.8 fL (9.0-12.2); MONOCYTES # (AUTO) 0.5 10^3/uL (0.0-1.0); MONOCYTES % (AUTO) 7 % (0-12); NEUTROPHILS # (AUTO) 4.6 10^3/uL (1.8-7.8); NEUTROPHILS % (AUTO) 62 % (42-75); PLATELET COUNT 264 10^3/uL (130-400); WHITE BLOOD COUNT 7.4 10^3/uL (4.3-11.0)
[2020-03-18 13:31] LABS: BACTERIA,URINE NEGATIVE /HPF; SQUAMOUS EPITHELIAL CELL,UR RARE /HPF
[2020-03-18 13:35] LABS: ALBUMIN 4.4 GM/DL (3.2-4.5); CHLORIDE 103 MMOL/L (98-107); POTASSIUM 4.5 MMOL/L (3.6-5.0); SODIUM 138 MMOL/L (135-145)
[2020-03-18 13:36] LABS: CALCIUM 8.8 MG/DL (8.5-10.1)
[2020-03-18 13:37] LABS: GLUCOSE 93 MG/DL (70-105); TOTAL PROTEIN 7.6 GM/DL (6.4-8.2)
[2020-03-18 13:38] LABS: CARBON DIOXIDE 24 MMOL/L (21-32)
--- NOTE | 2020-03-18 13:38 | NUR ---
Spoke with pt's in the parking lot regarding the plan of care.
[2020-03-18 13:39] LABS: BILIRUBIN,TOTAL 0.2 MG/DL (0.1-1.0)
[2020-03-18 13:41] LABS: ALKALINE PHOSPHATASE 57 U/L (40-136); CREATININE SERUM 0.92 MG/DL (0.60-1.30); GFR ESTIMATED > 60
[2020-03-18 13:42] LABS: BUN/CREATININE RATIO 18
[2020-03-18 13:44] LABS: ALANINE AMINOTRANSFERASE 13 U/L (0-55)
--- NOTE | 2020-03-18 13:59 | NUR ---
Pt sleeping in bed at this time. Will continue to monitor.
[2020-03-18] MEDS ORDERED: IOHEXOL 350 MG/ML 100 ML (OMNIPAQUE 350) VIAL IV ONE (14:00)
[2020-03-18] MEDS ORDERED: NS 100 ML (IVPB) BAG IV ONE (14:00)
[2020-03-18] MEDS ORDERED: HOLD METFORMIN - RECEIVED CONTRAST 20 ML VIAL IV SCH (14:00)
[2020-03-18] MEDS ORDERED: CATHETER FLUSH 10 ML SYR IV PRN (14:00)
--- NOTE | 2020-03-18 15:44 | Diagnostic Imaging Report ---
PROCEDURE: CT abdomen and pelvis with contrast. TECHNIQUE: Multiple contiguous axial images were obtained through the abdomen and pelvis after administration of intravenous contrast. Auto Exposure Controls were utilized during the CT exam to meet ALARA standards for radiation dose reduction. All CT scans use one or more of the following dose optimizing techniques: automated exposure control, MA and/or KvP adjustment based on patient size and exam type or iterative reconstruction. INDICATION:Left lower quadrant abdominal pain and bloody diarrhea. COMPARISON is made with prior CT from 06/20/2019. The lung bases are clear. A small low density in the medial aspect of the right lobe of the liver near the IVC is noted which is indeterminate. This measures 10 mm in size. Tiny low density inferior right lobe of the liver measures 5 mm in size. Gallbladder is unremarkable. No biliary ductal dilatation is seen. The pancreas and spleen are unremarkable. No adrenal mass is detected. Kidneys are unremarkable. Aorta again contains an aneurysm treated with an aortic stent graft. Aortic dimensions appear to be stable, measuring 3.5 cm in AP diameter compared with 3.7 cm on prior. Both iliac limbs of the stent graft appear patent. 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 The small and large bowel loops are normal caliber. No obstruction is seen. No free fluid or fluid collection is identified. No inflammatory changes are seen. In particular, left lower quadrant is unremarkable. Bladder is unremarkable. Prostate contains some calcifications. Bony structures are nonacute. IMPRESSION: Stable CT abdomen and pelvis since exam from 06/20/2019. No acute feature is detected. Treated abdominal aortic aneurysm appears to be stable. Dictated by: Dictated on workstation # [id number]
[2020-03-18] MEDS ORDERED: DOCU-143 PO (16:04)
[2020-03-18] MEDS ORDERED: PRAM15FO3 TP (16:04)
--- NOTE | 2020-03-18 16:04 | NUR ---
Jose David performed I&D to external hemerrhoid.
[2020-03-18 16:05] VITALS: BP 173/96
== END 2020-03-18 16:08 | disposition home or self-care (01) ==
LOC: EDUNIT# 12:07 → ER 12:08
DX: K64.8 Other hemorrhoids (principal); K92.1 Melena; Z85.118 Personal history of other malignant neoplasm of bronchus and lung; Z87.820 Personal history of traumatic brain injury; F17.210 Nicotine dependence, cigarettes, uncomplicated
CPT/HCPCS: 36415; 74177; 80053; 81000; 82274; 85025; 86141

== ENCOUNTER 2021-03-17 09:15 | Emergency (ER) | payer OTHER ==
[~2021-03-17] VITALS: Ht 185 cm; Wt 78.0 kg
[~2021-03-17 09:15] MED LIST changes: +DOCU-143 PO; +DOXY-311 PO; -DOXY100C42 PO; +PRAM15FO3 TP
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
--- NOTE | 2021-03-17 12:42 | Diagnostic Imaging Report ---
INDICATION: A recent stent placement left leg. Studies performed to evaluate for pseudoaneurysm. Grayscale, color-flow and duplex Doppler evaluation of the left groin was performed. No definite pseudoaneurysm or area of AV fistula is identified. There is no hematoma. There is some acoustic shadowing medial to the femoral vessels, etiology indeterminate. The common femoral artery and vein are patent. IMPRESSION: No evidence of hematoma, pseudoaneurysm or AV fistula in the left groin. Dictated by: Dictated on workstation # [id number]
[2021-03-17 14:05] VITALS: BP 155/102
== END 2021-03-17 14:05 | disposition home or self-care (01) ==
LOC: EDUNIT# 09:15 → ER 09:16
DX: G89.18 Other acute postprocedural pain (principal); R10.32 Left lower quadrant pain; I10 Essential (primary) hypertension; F17.210 Nicotine dependence, cigarettes, uncomplicated; Z79.899 Other long term (current) drug therapy
CPT/HCPCS: 93926

== ENCOUNTER 2021-10-06 08:20 | Emergency (ER) | payer OTHER ==
[~2021-10-06] VITALS: Ht 182.8 cm; Wt 78.9 kg
[~2021-10-06 08:20] MED LIST changes: +CYCL10TA25 PO
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
[2021-10-06 09:01] LABS: BASOPHILS # (AUTO) 0.1 10^3/uL (0.0-0.1); BASOPHILS % (AUTO) 2 % (0-10); EOSINOPHILS # (AUTO) 0.1 10^3/uL (0.0-0.3); EOSINOPHILS % (AUTO) 3 % (0-10); HEMATOCRIT 49 % (40-54); HEMOGLOBIN 16.1 g/dL (13.3-17.7); LYMPHOCYTES # (AUTO) 1.2 10^3/uL (1.0-4.0); LYMPHOCYTES % (AUTO) 25 % (12-44); MEAN CORPUSCULAR HEMOGLOBIN 30 pg (25-34); MEAN CORPUSCULAR HGB CONC 33 g/dL (32-36); MEAN CORPUSCULAR VOLUME 92 fL (80-99); MEAN PLATELET VOLUME 8.8 fL (9.0-12.2); MONOCYTES # (AUTO) 0.8 10^3/uL (0.0-1.0); MONOCYTES % (AUTO) 16 % (0-12); NEUTROPHILS # (AUTO) 2.6 10^3/uL (1.8-7.8); NEUTROPHILS % (AUTO) 54 % (42-75); PLATELET COUNT 227 10^3/uL (130-400); WHITE BLOOD COUNT 4.8 10^3/uL (4.3-11.0)
[2021-10-06 09:12] LABS: CHLORIDE 100 MMOL/L (98-107); POTASSIUM 4.3 MMOL/L (3.6-5.0); SODIUM 137 MMOL/L (135-145)
[2021-10-06 09:14] LABS: GLUCOSE 93 MG/DL (70-105)
[2021-10-06 09:16] LABS: CARBON DIOXIDE 26 MMOL/L (21-32)
[2021-10-06 09:18] LABS: GFR ESTIMATED 94
[2021-10-06 09:19] LABS: BUN/CREATININE RATIO 10
--- NOTE | 2021-10-06 10:09 | Diagnostic Imaging Report ---
HISTORY: Right arm pain and shoulder pain. TECHNIQUE: Frontal view of the chest. COMPARISON: 11/14/2018. FINDINGS: Lung volumes are large. There is a subtle chronic linear opacity in the right midlung, likely chronic scarring, when compared to the CT from 2018. No new consolidation is seen. There is no pleural effusion or pneumothorax. The cardiac silhouette is normal in size. IMPRESSION: Chronic findings in the chest with no acute pulmonary abnormality seen. Dictated by: Dictated on workstation # [id number]
[2021-10-06] MEDS ORDERED: ASPIRIN 81 MG CHEW (CHILDREN'S ASA) PO ONE (11:00)
[2021-10-06] MEDS ORDERED: ACETAMINOPHEN 500 MG TAB (TYLENOL) PO ONE (13:45)
[2021-10-06 14:00] VITALS: BP 133/104
== END 2021-10-06 14:00 | disposition home or self-care (01) ==
LOC: EDUNIT# 08:20 → ER 08:21
DX: M79.601 Pain in right arm (principal); Z79.82 Long term (current) use of aspirin
CPT/HCPCS: 36415; 71045; 80048; 84484; 85025; 93005

== ENCOUNTER 2022-01-14 21:28 | Day surgery (SDC) | payer MEDICARE, OTHER ==
[2022-01-14] MEDS ORDERED: TRANEXAMIC ACID 100 MG/ML 10 ML INJECTION ONE ×2 (21:36→21:45)
[2022-01-14] MEDS ORDERED: hydrALAZINE (APESOLINE) 20 MG/ML VIAL IV ONE (21:45)
[2022-01-14 22:01] LABS: BASOPHILS # (AUTO) 0.1 10^3/uL (0.0-0.1); BASOPHILS % (AUTO) 1 % (0-10); EOSINOPHILS # (AUTO) 0.2 10^3/uL (0.0-0.3); EOSINOPHILS % (AUTO) 3 % (0-10); HEMATOCRIT 48 % (40-54); HEMOGLOBIN 15.8 g/dL (13.3-17.7); LYMPHOCYTES # (AUTO) 3.3 10^3/uL (1.0-4.0); LYMPHOCYTES % (AUTO) 44 % (12-44); MEAN CORPUSCULAR HEMOGLOBIN 30 pg (25-34); MEAN CORPUSCULAR HGB CONC 33 g/dL (32-36); MEAN CORPUSCULAR VOLUME 93 fL (80-99); MEAN PLATELET VOLUME 8.7 fL (9.0-12.2); MONOCYTES # (AUTO) 0.6 10^3/uL (0.0-1.0); MONOCYTES % (AUTO) 8 % (0-12); NEUTROPHILS # (AUTO) 3.3 10^3/uL (1.8-7.8); NEUTROPHILS % (AUTO) 44 % (42-75); PLATELET COUNT 226 10^3/uL (130-400); WHITE BLOOD COUNT 7.5 10^3/uL (4.3-11.0)
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
[2022-01-14 22:16] LABS: PROTHROMBIN TIME PATIENT 13.3 SEC (12.2-14.7)
[2022-01-14 22:24] LABS: ALBUMIN 4.2 GM/DL (3.2-4.5); BILIRUBIN,TOTAL 0.4 MG/DL (0.1-1.0); CALCIUM 9.7 MG/DL (8.5-10.1); CREATININE SERUM 1.05 MG/DL (0.60-1.30); POTASSIUM 4.2 MMOL/L (3.6-5.0); TOTAL PROTEIN 7.2 GM/DL (6.4-8.2)
[2022-01-14] MEDS ORDERED: NS IV 1000 ML 1,000 ML ONE (22:34)
[2022-01-14] MEDS ORDERED: NS IV 1000 ML 1,000 ML IV SCH (22:45)
--- NOTE | 2022-01-14 23:18 | Progress Note ---
Standard Progress Note Progress Notes/Assess & Plan Date Seen by a Provider: Jan 14, 2022 Time Seen by a Provider: 22:45 Progress/Assessment & Plan Halima-01/14 2250 Halima History/Physical cc: Recurrent Left Epistaxis HPI: Patient had onset of left epistaxis yesterday. INitially it was anterior on the left side. IT stoopped but started again around 8pm tonight. He was unable to stop and presented to the ER. The left side of the nose was packed with continued bleeding. HGB-15.8. Coags normal. BMP normal Meds include one aspirin/day Exam: Nose-packing present on the left side with no bleeding seen currently OP-with old blood staining the posterior pharygeal wall but no active bleeding present. IMP: Recurrent Left Posterior Epistaxis Rec: 1. Patient seen and evaluated. Will take to the OR for EUA and repair of left posterior epistaxis. Risks and benefits reviewed. Will proceed to OR once a crew is available Final Diagnosis Left Posterior Epistaxis SARAI IBANEZ MD Jan 14, 2022 23:18
--- NOTE | 2022-01-14 23:19 | Progress Note-Pre Operative ---
Pre-Operative Progress Note Date of Available H&P: Jan 14, 2022 Date H&P Reviewed: Jan 14, 2022 Time H&P Reviewed: 23:10 History & Physical: H&P Reviewed, Patient Examed Changes from last HP none Pre-Operative Diagnosis: Recurrent Left Posterior Epistaxis SARAI IBANEZ MD Jan 14, 2022 23:19
[2022-01-14] MEDS ORDERED: LIDOCAINE/EPI 2% 1:200,00 (XYLOCAINE) 20 ML VIAL ONE (23:25)
[2022-01-14] MEDS ORDERED: COCAINE HCL 4% 2 ML SYR ONE (23:25)
[2022-01-14] MEDS ORDERED: MUPIROCIN 2% OINT 22 GM (BACTROBAN) TUBE ONE (23:25)
[2022-01-14] MEDS ORDERED: PHENYLEPHRINE 0.5% NASAL SPR (NEO-SYNEPHRINE) REG ONE (23:25)
[2022-01-14] MEDS ORDERED: SUCCINYLCHOLINE INJ 100 MG/5 ML SYR/VIAL ONE (23:40)
[2022-01-14] MEDS ORDERED: proPOfol 200 MG/20 ML (DIPRIVAN) VIAL IV ONE (23:40)
[2022-01-14] MEDS ORDERED: fentaNYL INJ 100 MCG/2 ML AMP ONE (23:40)
[2022-01-14] MEDS ORDERED: MIDAZOLAM 2 MG/2 ML (VERSED) VIAL ONE (23:40)
[2022-01-14] MEDS ORDERED: SEVOFLURANE (ULTANE) 15 ML INHAL SOLN ONE (23:40)
[2022-01-14] MEDS ORDERED: LIDOCAINE PF 2% 5 ML (XYLOCAINE) VIAL ONE (23:40)
[2022-01-15] VITALS (10 sets, daily range): BP systolic 106–162; BP diastolic 59–99
[2022-01-15] MEDS ORDERED: LACTATED RINGERS 1,000 ML IV PRN
[2022-01-15] MEDS ORDERED: ceFAZolin INJECTION 1,000 MG ONE (00:13)
--- NOTE | 2022-01-15 00:33 | Progress Note-Post Operative ---
Post-Operative Progess Note Surgeon (s)/Mobile Application Tester (s) Surgeon SARAI IBANEZ MD Mobile Application Tester n/a Pre-Operative Diagnosis Recurrent Left Posterior Epistaxis Post-Operative Diagnosis same Post-Op Procedure Note Date of Procedure: Jan 15, 2022 Name of Procedure Performed: Endoscopic Repair of Left Posterior Epistaxis Description & Findings Description and Findings: n/a Anesthesia Type get Estimated Blood Loss minimal Packing dnp Specimen(s) collected/removed none SARAI IBANEZ MD Jan 15, 2022 00:33
[2022-01-15] MEDS ORDERED: HYDROcodone/APAP 5 MG/325 MG (LORTAB) TAB PO PRN (00:45)
[2022-01-15] MEDS ORDERED: PHENYLEPHRINE 0.5% NASAL SPR (NEO-SYNEPHRINE) REG PRN (00:45)
[2022-01-15] MEDS ORDERED: D5 1/2 NS W/KCL 20 MEQ/L 1,000 ML IV SCH (00:45)
[2022-01-15] MEDS ORDERED: ONDANSETRON 4 MG/2 ML (SDV) Z0FRAN ONE (00:58)
[2022-01-15] MEDS ORDERED: morphine INJ 10 MG/ML 1ML (SYR OR VIAL) ONE (00:59)
[2022-01-15] MEDS ORDERED: ONDANSETRON 4 MG/2 ML (SDV) Z0FRAN IVP PRN (01:00)
[2022-01-15] MEDS ORDERED: morphine INJ 10 MG/ML 1ML (SYR OR VIAL) IVP ONE (01:00)
[2022-01-15] MEDS ORDERED: HYDROmorphone 2 MG/ML VIAL (DILAUDID) IV ONE (01:00)
[2022-01-15] MEDS ORDERED: diphenhydrAMINE 50 MG/ML INJ (BENADRYL) ONE (01:05)
[2022-01-15] MEDS ORDERED: diphenhydrAMINE 50 MG/ML INJ (BENADRYL) IVP ONE (01:15)
--- NOTE | 2022-01-15 06:57 | Progress Note ---
Standard Progress Note Progress Notes/Assess & Plan Date Seen by a Provider: Jan 15, 2022 Time Seen by a Provider: 06:45 Progress/Assessment & Plan Halima-01/14 2250 Halima History/Physical cc: Recurrent Left Epistaxis HPI: Patient had onset of left epistaxis yesterday. INitially it was anterior on the left side. IT stoopped but started again around 8pm tonight. He was unable to stop and presented to the ER. The left side of the nose was packed with continued bleeding. HGB-15.8. Coags normal. BMP normal Meds include one aspirin/day Exam: Nose-packing present on the left side with no bleeding seen currently OP-with old blood staining the posterior pharygeal wall but no active bleeding present. IMP: Recurrent Left Posterior Epistaxis Rec: 1. Patient seen and evaluated. Will take to the OR for EUA and repair of left posterior epistaxis. Risks and benefits reviewed. Will proceed to OR once a crew is available Halima01/15-6am no bleeding op dry minimal discomfort bhavana some diet will discharge after breakfast discharge prescriptions in chart epistaxis discharge instructions rtc-2 weeks SARAI IBANEZ MD Jan 15, 2022 06:57
--- NOTE | 2022-01-16 08:31 | Anesthesia-General Post-Op ---
General Patient Condition Mental Status/LOC: Same as Preop Cardiovascular: Satisfactory Nausea/Vomiting: Absent Respiratory: Satisfactory Pain: Controlled Complications: Absent Post Op Complications Complications None Follow Up Care/Instructions Patient Instructions None needed. Anesthesia/Patient Condition Patient Condition Patient is doing well, no complaints, stable vital signs, no apparent adverse anesthesia problems. No complications reported per nursing. D/C home per [facility] Criteria: Yes PEYTON KEE CRNA Jan 16, 2022 08:31
== END 2022-01-15 10:25 | disposition home or self-care (01) ==
LOC: EDUNIT# 21:28 → ER 21:30 → SDC 22:59 → 4TH 01-15 01:35 → SDC 01-15 10:25
PROVIDERS: ATTEND Otolaryngology Otolaryngology/Facial Plastic Surgery
DX: R04.0 Epistaxis (principal); F17.210 Nicotine dependence, cigarettes, uncomplicated; I10 Essential (primary) hypertension
CPT/HCPCS: 36415; 80053; 85025; 85610; 85730; 94760; 96361; 96374

== ENCOUNTER 2022-01-18 06:08 | Emergency (ER) | payer OTHER ==
[~2022-01-18] VITALS: Ht 183 cm; Wt 78.8 kg
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
[2022-01-18 08:29] VITALS: BP 133/90
[2022-01-18] MEDS ORDERED: OXYMETAZOLINE (AFRIN) 0.05% NA 30 ML BTL SCH (09:00)
== END 2022-01-18 08:29 | disposition home or self-care (01) ==
LOC: EDUNIT# 06:08 → ER 06:11
DX: R04.0 Epistaxis (principal)
CPT/HCPCS: 99282

== ENCOUNTER 2022-01-24 22:05 | Emergency (ER) | payer OTHER ==
[~2022-01-24] VITALS: Ht 177.8 cm; Wt 80.0 kg
[2022-01-24 23:55] LABS: BASOPHILS # (AUTO) 0.1 10^3/uL (0.0-0.1); BASOPHILS % (AUTO) 1 % (0-10); EOSINOPHILS # (AUTO) 0.3 10^3/uL (0.0-0.3); EOSINOPHILS % (AUTO) 3 % (0-10); HEMATOCRIT 43 % (40-54); HEMOGLOBIN 14.2 g/dL (13.3-17.7); LYMPHOCYTES # (AUTO) 2.2 10^3/uL (1.0-4.0); LYMPHOCYTES % (AUTO) 20 % (12-44); MEAN CORPUSCULAR HEMOGLOBIN 31 pg (25-34); MEAN CORPUSCULAR HGB CONC 33 g/dL (32-36); MEAN CORPUSCULAR VOLUME 92 fL (80-99); MEAN PLATELET VOLUME 8.6 fL (9.0-12.2); MONOCYTES # (AUTO) 0.8 10^3/uL (0.0-1.0); MONOCYTES % (AUTO) 7 % (0-12); NEUTROPHILS # (AUTO) 7.5 10^3/uL (1.8-7.8); NEUTROPHILS % (AUTO) 69 % (42-75); PLATELET COUNT 305 10^3/uL (130-400)
[2022-01-25] MEDS ORDERED: HURRICAINE EXT TUBE (BENZOCAINE) XX ONE (00:15)
[2022-01-25] MEDS ORDERED: OXYMETAZOLINE (AFRIN) 0.05% NA 30 ML BTL STA (00:47)
[2022-01-25 02:01] VITALS: BP 147/95
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
[2022-01-25] MEDS ORDERED: OXYMETAZOLINE (AFRIN) 0.05% NA 30 ML BTL SCH (09:00)
== END 2022-01-25 02:11 | disposition home or self-care (01) ==
LOC: EDUNIT# 22:05 → ER 22:06
DX: I10 Essential (primary) hypertension (principal); F17.210 Nicotine dependence, cigarettes, uncomplicated
CPT/HCPCS: 36415; 85025

== ENCOUNTER → 2022-03-05 | Outpatient (CLI) | payer OTHER | LOC: IHC 15:14 | PROVIDERS: ATTEND Ophthalmology | DX: D23.111 Other benign neoplasm of skin of right upper eyelid, including canthus (principal) | CPT/HCPCS: 88305 ==

== ENCOUNTER 2023-02-04 10:59 | Emergency (ER) | payer OTHER ==
[~2023-02-04] VITALS: Ht 185.4 cm; Wt 80.0 kg
[~2023-02-04 10:59] MED LIST changes: -DOXY-311 PO; +DOXY-444 PO
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
--- NOTE | 2023-02-04 12:22 | Diagnostic Imaging Report ---
EXAMINATION: US Right Lower Extremity Venous Duplex. TECHNIQUE: Multiple real-time grayscale images were obtained over the right lower extremity in various projections. Additional spectral analysis and color Doppler duplex images were also obtained. HISTORY: Right lower extremity pain and swelling. COMPARISON: None available. FINDINGS: The right common femoral vein, deep femoral vein, superficial femoral vein and popliteal vein are patent with normal cuevas scale and Doppler appearance. There is normal respiratory variation and augmentation. The visualized calf vessels are patent. IMPRESSION: 1. No DVT of the right lower extremity. Dictated by: Dictated on workstation # [id number]
--- NOTE | 2023-02-04 12:25 | Diagnostic Imaging Report ---
US RIGHT LOW EXT [id number] INDICATION: Right leg pain COMPARISON: None available. TECHNIQUE: Grayscale, color Doppler and spectral Doppler imaging of the right lower extremity. FINDINGS: Color Doppler imaging shows patency of the common femoral, proximal deep femoral, superficial femoral, popliteal, posterior tibial and dorsalis pedis arteries. Biphasic waveforms are present throughout the right lower extremity. However, there is no blunting of the acceleration index to suggest upstream stenosis and this is likely due to chronic stiffening of the vessels associated with peripheral vascular disease. No elevated peak systolic velocities that would indicate focal hemodynamically significant stenosis. Ankle-brachial index was not performed on this exam. IMPRESSION: No hemodynamically centimeters stenosis within the right lower extremity arteries. Dictated by: Dictated on workstation # [id number]
[2023-02-04 12:33] VITALS: BP 135/95
== END 2023-02-04 12:33 | disposition home or self-care (01) ==
LOC: EDUNIT# 10:59 → ER 11:03
DX: M79.651 Pain in right thigh (principal); F17.210 Nicotine dependence, cigarettes, uncomplicated
CPT/HCPCS: 93926